=== PATIENT | male | born 1970 | race Caucasian/White ===

== ENCOUNTER 2017-11-30 15:41 | Inpatient (IN) ==
[2017-11-30] MEDS ORDERED: Ondansetron 4 MG/2 ML VIAL IVP ONE (15:51)
[2017-11-30] MEDS ORDERED: 0.9 % Sodium Chloride 1,000 ML IVC ONE (15:51)
[2017-11-30] MEDS ORDERED: *HR* FentaNYL (PF) 100 MCG/2 ML VIAL IVP ONE (15:51)
--- NOTE | 2017-11-30 15:59 | Emergency Department Note ---
Disposition Clinical Impression: Cellulitis of abdominal wall, Elevated troponin I level Disposition: Admitted As Inpatient Condition: Fair General Adult HPI - General Chief complaint: ED Skin/Abscess/Foreign Body Stated complaint: abscess on groin Time Seen by Provider: 11/30/17 15:45 Source: patient, EMS Limitations: no limitations Nursing Notes Reviewed: Yes Vital Signs Reviewed: Yes - History of Present Illness Pain Scale: 9 - Related Data Home Medications Medication Instructions Recorded Confirmed Insulin Glargine [Lantus] 28 unit SQ QPM 05/23/17 11/30/17 Metformin HCl [Fortamet] 1,000 mg PO DAILY 05/23/17 11/30/17 Sertraline [Zoloft] 100 mg PO BID 05/23/17 11/30/17 glipiZIDE [Glipizide] 10 mg PO BID 05/23/17 11/30/17 Acetaminophen/Aspirin/Caffeine 1 each PO Q6H PRN 11/30/17 11/30/17 [Excedrin EX] Budesonide/Formoterol 80/4.5 2 puff IH BID 11/30/17 11/30/17 [Symbicort 80/4.5] Docusate [Colace] 100 mg PO BID 11/30/17 11/30/17 Gabapentin [Neurontin] 300 mg PO TID 11/30/17 11/30/17 Menthol/Camphor [Icy Hot Advanced 1 appl TP AD 11/30/17 11/30/17 Relief Cream] Oxycodone HCl/Acetaminophen 1 each PO Q6H PRN 11/30/17 11/30/17 [Percocet 10-325 mg Tablet] Sennosides [Senna] 17.2 mg PO DAILY 11/30/17 11/30/17 Sildenafil Citrate [Viagra] 50 mg PO AD PRN 11/30/17 11/30/17 traZODone [TraZODone] 50 mg PO HS 11/30/17 11/30/17 Allergies Allergy/AdvReac Type Severity Reaction Status Date / Time No Known Allergies Allergy Verified 05/23/17 11:12 Past Medical History - Past Medical History Medical history: Reports: diabetes Psychiatric history: Reports: anxiety, depression - Social History Smoking Status: Current every day smoker Smokeless Tobacco Status: No Alcohol use: Reports: none Drug use: Reports: none Physical Exam - General Limitations: no limitations General appearance: alert, in no apparent distress Course Vital Signs Temperature 97.3 F L 11/30/17 15:44 Pulse Rate 103 11/30/17 15:44 Respiratory Rate 18 11/30/17 15:44 Blood Pressure 126/64 11/30/17 15:44 O2 Sat by Pulse Oximetry 96 11/30/17 15:44 Temperature 97.3 F L 11/30/17 15:44 Pulse Rate 101 11/30/17 19:32 Respiratory Rate 18 11/30/17 19:32 Blood Pressure 124/73 11/30/17 19:32 O2 Sat by Pulse Oximetry 94 11/30/17 19:32 Oxygen Delivery Oxygen Delivery Room Air Medical Decision Making - MDM Narrative Medical decision making narrative: This documentation is done with the assistance of Dragon dictation. Despite efforts made to ensure accuracy, there may be inaccuracies in municipal services manager or spelling and typographical errors. I examined this patient and my medical decision-making was reviewed with the Resident Physician. I agree with the documented findings, disposition and treatment plan as described except to the extent set forth below. Patient seen and evaluated on arrival with EMS from the [place]. He was seen today by myself and Dr. when I agree with her evaluation and management plan, supervised care the patient's stay. Patient presents with a large abscess to the left lower groin. He sits been on a couple days. He has had them before. His measures about 8 x 4 cm. He has any tenderness of the testicles or scrotum or the penis. He is diabetic. Were in a start him on IV antibiotics pain medications check labs and do a CT to rule out necrotizing fasciitis. He is in agreement with plan. He will need admission surgical consult. 1603 hrs.: Patient in EKG performed shows a sinus rhythm rate is 99 QRS is 94 QTC 397 no signs of ischemia no old EKG to compare this to. Patient has no chest pain. 1655 hrs.: Patient's blood sugars elevated. We will start him on insulin. He is a known diabetic. He is goes antibiotics running also. His troponin is elevated. He has no changes so she with ischemia does EKG nor is any chest pain. And he has no renal insufficiency. Abdomen/Pelvis CT 11/30/17 15:49 IMPRESSION: 1. Cellulitis involving the mons pubis, left greater than right. Question of early phlegmonous changes on the left with more focal fluid collection. No discrete abscess is seen. 2. Prominent inguinal and external iliac nodes, presumed reactive in nature. Close clinical follow-up recommended. Consider imaging follow-up in 6 months following treatment. 3. 7.5 mm noncalcified left lower lobe pulmonary nodule. Follow-up imaging recommendations below. 4. Moderate prostatomegaly. RECOMMENDATIONS: Fleischner Society guidelines for follow-up and management of incidentally detected pulmonary nodules: Single Solid Nodule: Nodule size equals 6-8 mm In a low-risk patient, CT at 6-12 months, then consider CT at 18-24 months. In a high-risk patient, CT at 6-12 months, then CT at 18-24 months. - Low risk patients include individuals with minimal or absent history of smoking and other known risk factors. - High risk patients include individuals with a history or smoking or known risk factors. Radiology 2017 http://pubs.rsna.org/doi/full/10.1148/[email or web address] D/ / Collin Sheets MD / Collin Sheets MD Interpreting Provider: Collin Sheest MD 1800 hrs.: Patient received his IV antibiotics she is tolerating those well. No discrete abscess to drain. We spoke to hospitalist agreeing to admit the patient to hospital. Patient's in agreement with this plan. - Lab Data Result diagrams: 11/30/17 16:02 11/30/17 16:02 Lab Results 11/30/17 11/30/17 11/30/17 Range/Units 16:02 16:02 16:02 WBC 17.9 H (4.3-11.1) K/mcL RBC 4.95 (4.19-5.50) M/mcL Hgb 15.3 (12.9-16.9) g/dL Hct 43.7 (37.5-50.1) % MCV 88.3 (83.0-100.0) fL MCH 30.9 (28.0-33.3) pg MCHC 35.0 (31.6-35.5) g/dL RDW 12.6 (11.5-14.5) % Plt Count 282 (140-400) K/mcL MPV 9.3 L (9.4-12.4) fL Immature Gran % 0.5 (0-4) % Seg Neutrophils % 76.9 % Lymphocytes % 15.2 % Monocytes % 5.7 % Eosinophils % 1.5 % Basophils % 0.2 % Neutrophils # 13.8 H (1.6-8.9) K/mcL Lymphocytes # 2.7 (0.6-4.6) K/mcL Monocytes # 1.0 (0.0-1.3) K/mcL Eosinophils # 0.3 (0.0-0.6) K/mcL Basophils # 0.0 (0.0-0.2) K/mcL Sodium 129 L (136-145) mEq/L Potassium 4.3 (3.5-5.1) mEq/L Chloride 96 L (98-107) mEq/L Carbon Dioxide 27 (23-29) mEq/L BUN 16 (6-20) mg/dL Creatinine 0.75 (0.70-1.30) mg/dL Est GFR ( Amer) > 60 (> 60) Est GFR (Non-Af Amer) > 60 (> 60) BUN/Creatinine Ratio 21 (6-26) Glucose 577 H* (70-105) mg/dL Calculated Osmolality 296 (280-300) Lactic Acid (0.5-2.2) mmol/L Calcium 9.4 (8.6-10.3) mg/dL Troponin I 0.05 H* (< 0.04) ng/mL Lipase 31 (11-82) Units/L Urine Color (Yellow) Urine Clarity (Clear) Urine pH (5.0-8.0) pH Units Ur Specific [place] (1.010-1.025) Urine Protein (Neg-Trace) mg/dL Urine Glucose (UA) (Normal) mg/dL Urine Ketones (Negative) mg/dL Urine Blood (Negative) Urine Nitrite (Negative) Urine Bilirubin (Negative) Urine Urobilinogen (Normal) mg/dL Ur Leukocyte Esterase (Negative) Urine Microscopic RBC (0-3) per hpf Urine Microscopic WBC (0-3) per hpf Ur Squamous Epith Cells (None-Few) per lpf Urine Bacteria (None-Few) per hpf Hyaline Casts (None-Few) per lpf Ur Culture Indicated? (NO) Specimen Rejected 11/30/17 11/30/17 11/30/17 Range/Units 16:02 17:10 18:43 WBC (4.3-11.1) K/mcL RBC (4.19-5.50) M/mcL Hgb (12.9-16.9) g/dL Hct (37.5-50.1) % MCV (83.0-100.0) fL MCH (28.0-33.3) pg MCHC (31.6-35.5) g/dL RDW (11.5-14.5) % Plt Count (140-400) K/mcL MPV (9.4-12.4) fL Immature Gran % (0-4) % Seg Neutrophils % % Lymphocytes % % Monocytes % % Eosinophils % % Basophils % % Neutrophils # (1.6-8.9) K/mcL Lymphocytes # (0.6-4.6) K/mcL Monocytes # (0.0-1.3) K/mcL Eosinophils # (0.0-0.6) K/mcL Basophils # (0.0-0.2) K/mcL Sodium (136-145) mEq/L Potassium (3.5-5.1) mEq/L Chloride (98-107) mEq/L Carbon Dioxide (23-29) mEq/L BUN (6-20) mg/dL Creatinine (0.70-1.30) mg/dL Est GFR ( Amer) (> 60) Est GFR (Non-Af Amer) (> 60) BUN/Creatinine Ratio (6-26) Glucose (70-105) mg/dL Calculated Osmolality (280-300) Lactic Acid 0.9 (0.5-2.2) mmol/L Calcium (8.6-10.3) mg/dL Troponin I (< 0.04) ng/mL Lipase (11-82) Units/L Urine Color Yellow (Yellow) Urine Clarity Clear (Clear) Urine pH 6.5 (5.0-8.0) pH Units Ur Specific [place] > 1.030 H (1.010-1.025) Urine Protein Trace (Neg-Trace) mg/dL Urine Glucose (UA) >=1000 H (Normal) mg/dL Urine Ketones Negative (Negative) mg/dL Urine Blood Negative (Negative) Urine Nitrite Negative (Negative) Urine Bilirubin Negative (Negative) Urine Urobilinogen Normal (Normal) mg/dL Ur Leukocyte Esterase Negative (Negative) Urine Microscopic RBC 3-5 H (0-3) per hpf Urine Microscopic WBC 5-15 H (0-3) per hpf Ur Squamous Epith Cells Moderate H (None-Few) per lpf Urine Bacteria None Seen (None-Few) per hpf Hyaline Casts None Seen (None-Few) per lpf Ur Culture Indicated? NO (NO) Specimen Rejected Accident
[2017-11-30 16:17] LABS: Basophils % 0.2 %; Eosinophils # 0.3 K/mcL (0.0-0.6); Eosinophils % 1.5 %; Hematocrit 43.7 % (37.5-50.1); Hemoglobin 15.3 g/dL (12.9-16.9); Immature Granulocytes % 0.5 % (0-4); Lymphocytes # 2.7 K/mcL (0.6-4.6); Lymphocytes % 15.2 %; Mean Corpuscular Hemoglobin 30.9 pg (28.0-33.3); Mean Corpuscular Volume 88.3 fL (83.0-100.0); Mean Platelet Volume 9.3 fL (9.4-12.4); Monocytes % 5.7 %; Neutrophils # 13.8 K/mcL (1.6-8.9); Platelet Count 282 K/mcL (140-400); Red Blood Count 4.95 M/mcL (4.19-5.50); Red Cell Distribution Width 12.6 % (11.5-14.5); Segmented Neutrophils % 76.9 %
[2017-11-30 16:42] LABS: BUN/Creatinine Ratio 21 (6-26); Blood Urea Nitrogen 16 mg/dL (6-20); Calcium 9.4 mg/dL (8.6-10.3); Carbon Dioxide 27 mEq/L (23-29); Chloride 96 mEq/L (98-107); Glucose 577 mg/dL (70-105); Osmolality,Calculated 296 (280-300); Potassium 4.3 mEq/L (3.5-5.1); Sodium 129 mEq/L (136-145); eGFR For African Americans > 60 (> 60); eGFR For Non-African Americans > 60 (> 60)
[2017-11-30 16:45] LABS: Troponin I 0.05 ng/mL (< 0.04)
[2017-11-30] MEDS ORDERED: Aspirin 81 MG TAB.CHEW PO STA (16:54)
[2017-11-30] MEDS ORDERED: Insulin Regular, Human 100 UNIT/ML SQ ONE (16:55)
[2017-11-30 17:25] LABS: Bilirubin,Urine Negative (Negative); Blood,Urine Negative (Negative); Clarity,Urine Clear (Clear); Color,Urine Yellow (Yellow); Glucose,Urine (UA) >=1000 mg/dL (Normal); Ketones,Urine Negative (Negative); Leukocyte Esterase,Urine Negative (Negative); Nitrite,Urine Negative (Negative); PH,Urine 6.5 pH Units (5.0-8.0); Protein,Urine Trace mg/dL (Neg-Trace); Specific Gravity,Urine > 1.030 (1.010-1.025); Urobilinogen,Urine Normal (Normal)
[2017-11-30 17:29] LABS: Bacteria,Urine None Seen per hpf (None-Few); Hyaline Casts,Urine None Seen per lpf (None-Few); Squamous Epithelial Cell,Urine Moderate per lpf (None-Few)
--- NOTE | 2017-11-30 17:56 | Emergency Department Note ---
Disposition Clinical Impression: Cellulitis of abdominal wall, Elevated troponin I level Disposition: Admitted As Inpatient Condition: Fair [facility]: [facility]Primary Care Provider[facility] - Forms: ED Satisfaction Letter Time of Disposition: 19:17 Abdominal Pain HPI - General Stated Complaint: abscess on groin Time Seen by Provider: 11/30/17 15:45 Source: patient, EMS Mode of arrival: EMS Limitations: no limitations Nursing Notes Reviewed: Yes Vital Signs Reviewed: Yes - History of Present Illness HPI Narrative: Patient is a 47-year-old male who presents to [facility] ED with a chief complaint of an abscess in the groin region. Patient was sent over by the [place] to have the abscess drained. Patient states it has been worsening over the last few days and causes a lot of pain. States he has had subjective fevers and chills. Admits to some nausea with episodes of vomiting. Denies any chest pain, difficulty breathing. Patient also has some epigastric pain. Pt Subjective Complaint: abdominal pain Onset (ago): day(s) Consistency: Worsening Location: suprapubic Pain Severity: severe Pain Scale: 9 Quality: aching Radiation: none Migration to: no migration Improves with: nothing Worsens with: nothing Associated symptoms: Reports: nausea, vomiting, fever, chills. Denies: dysuria Treatments prior to arrival: none - Related Data Home Medications Medication Instructions Recorded Confirmed Insulin Glargine [Lantus] 30 unit SQ QPM 05/23/17 05/23/17 Metformin HCl [Fortamet] 1,000 mg PO BID 05/23/17 05/23/17 Sertraline [Zoloft] 100 mg PO BID 05/23/17 05/23/17 glipiZIDE [Glipizide] 10 mg PO BID 05/23/17 05/23/17 Acetaminophen/Aspirin/Caffeine 1 each PO Q6H PRN 11/30/17 11/30/17 [Excedrin EX] Budesonide/Formoterol 80/4.5 2 puff IH BID 11/30/17 11/30/17 [Symbicort 80/4.5] Docusate [Colace] 100 mg PO BID 11/30/17 11/30/17 Gabapentin [Neurontin] 300 mg PO TID 11/30/17 11/30/17 Menthol/Camphor [Icy Hot Advanced 1 appl TP AD 11/30/17 11/30/17 Relief Cream] Oxycodone HCl/Acetaminophen 1 each PO Q6H PRN 11/30/17 11/30/17 [Percocet 10-325 mg Tablet] Sennosides [Senna] 17.2 mg PO DAILY 11/30/17 11/30/17 Sildenafil Citrate [Viagra] 50 mg PO AD PRN 11/30/17 11/30/17 traZODone [TraZODone] 50 mg PO HS 11/30/17 11/30/17 Allergies Allergy/AdvReac Type Severity Reaction Status Date / Time No Known Allergies Allergy Verified 05/23/17 11:12 All systems ED: reviewed and negative except as stated. Abdominal Pain PMH - Past Medical History Medical history: Reports: diabetes Male Surgical History: Reports: orthopedic, other, Tonsillectomy Psychiatric history: Reports: anxiety, depression - Social History Smoking status: Current every day smoker Alcohol use: Reports: none Drug use: Reports: none Physical Exam - General Limitations: no limitations General appearance: alert, in no apparent distress - Head Head exam: atraumatic, normocephalic, normal inspection - Eye Eye exam: Present: normal appearance, EOMI - ENT ENT exam: normal exam, normal oropharynx, mucous membranes moist - Neck Neck exam: Present: normal inspection, full ROM, trachea midline - Chest Chest inspection: Present: normal inspection, symmetric chest wall rise - Respiratory Respiratory exam: Present: normal lung sounds bilaterally - Cardiovascular Cardiovascular exam: Present: normal rhythm, tachycardia - Abdominal Exam Abdominal exam: Present: soft, tenderness (Over the region of the abscess on the lower abdomen), normal bowel sounds Abdominal tenderness: Present: suprapubic, diffuse, moderate - Extremities Exam Extremities exam: Present: normal inspection, full ROM. Absent: tenderness, pedal edema - Back Exam Back exam: Present: normal inspection, full ROM. Absent: tenderness - Neurological Exam Neurological exam: Present: alert, oriented X3 - Psychiatric Psychiatric exam: Present: normal affect, normal mood - Skin Skin exam: Present: warm, dry, intact, normal color Course Course Narrative: Patient seen and examined. Abscess measuring 8.5 x 4.5 cm. We will get lab work as well as CT abdomen and pelvis with IV contrast to evaluate. IV fluids ordered as well as Zofran for nausea. Vancomycin given for MRSA coverage. Since pain radiates up into his chest, we will check an EKG and troponin level. - Reevaluation(s) Reevaluation #1: Troponin mildly elevated at 0.05. CT scan shows cellulitis. Patient covered with vancomycin. We will admit to hospital service. Time: 19:17 Vital Signs Temperature 97.3 F L 11/30/17 15:44 Pulse Rate 103 11/30/17 15:44 Respiratory Rate 18 11/30/17 15:44 Blood Pressure 126/64 11/30/17 15:44 O2 Sat by Pulse Oximetry 96 11/30/17 15:44 Temperature 97.3 F L 11/30/17 15:44 Pulse Rate 103 11/30/17 15:44 Respiratory Rate 18 11/30/17 15:44 Blood Pressure 126/64 11/30/17 15:44 O2 Sat by Pulse Oximetry 96 11/30/17 15:44 Oxygen Delivery Oxygen Delivery Room Air Abdominal Pain - Medical Records Medical records reviewed: Yes I reviewed the patient's medical records. - Lab Data Lab results reviewed: Yes I reviewed the patient's lab results. Result diagrams: 11/30/17 16:02 11/30/17 16:02 Lab Results 11/30/17 11/30/17 11/30/17 Range/Units 16:02 16:02 16:02 WBC 17.9 H (4.3-11.1) K/mcL RBC 4.95 (4.19-5.50) M/mcL Hgb 15.3 (12.9-16.9) g/dL Hct 43.7 (37.5-50.1) % MCV 88.3 (83.0-100.0) fL MCH 30.9 (28.0-33.3) pg MCHC 35.0 (31.6-35.5) g/dL RDW 12.6 (11.5-14.5) % Plt Count 282 (140-400) K/mcL MPV 9.3 L (9.4-12.4) fL Immature Gran % 0.5 (0-4) % Seg Neutrophils % 76.9 % Lymphocytes % 15.2 % Monocytes % 5.7 % Eosinophils % 1.5 % Basophils % 0.2 % Neutrophils # 13.8 H (1.6-8.9) K/mcL Lymphocytes # 2.7 (0.6-4.6) K/mcL Monocytes # 1.0 (0.0-1.3) K/mcL Eosinophils # 0.3 (0.0-0.6) K/mcL Basophils # 0.0 (0.0-0.2) K/mcL Sodium 129 L (136-145) mEq/L Potassium 4.3 (3.5-5.1) mEq/L Chloride 96 L (98-107) mEq/L Carbon Dioxide 27 (23-29) mEq/L BUN 16 (6-20) mg/dL Creatinine 0.75 (0.70-1.30) mg/dL Est GFR ( Amer) > 60 (> 60) Est GFR (Non-Af Amer) > 60 (> 60) BUN/Creatinine Ratio 21 (6-26) Glucose 577 H* (70-105) mg/dL Calculated Osmolality 296 (280-300) Calcium 9.4 (8.6-10.3) mg/dL Troponin I 0.05 H* (< 0.04) ng/mL Lipase 31 (11-82) Units/L Urine Color (Yellow) Urine Clarity (Clear) Urine pH (5.0-8.0) pH Units Ur Specific [place] (1.010-1.025) Urine Protein (Neg-Trace) mg/dL Urine Glucose (UA) (Normal) mg/dL Urine Ketones (Negative) mg/dL Urine Blood (Negative) Urine Nitrite (Negative) Urine Bilirubin (Negative) Urine Urobilinogen (Normal) mg/dL Ur Leukocyte Esterase (Negative) Urine Microscopic RBC (0-3) per hpf Urine Microscopic WBC (0-3) per hpf Ur Squamous Epith Cells (None-Few) per lpf Urine Bacteria (None-Few) per hpf Hyaline Casts (None-Few) per lpf Ur Culture Indicated? (NO) 11/30/17 Range/Units 17:10 WBC (4.3-11.1) K/mcL RBC (4.19-5.50) M/mcL Hgb (12.9-16.9) g/dL Hct (37.5-50.1) % MCV (83.0-100.0) fL MCH (28.0-33.3) pg MCHC (31.6-35.5) g/dL RDW (11.5-14.5) % Plt Count (140-400) K/mcL MPV (9.4-12.4) fL Immature Gran % (0-4) % Seg Neutrophils % % Lymphocytes % % Monocytes % % Eosinophils % % Basophils % % Neutrophils # (1.6-8.9) K/mcL Lymphocytes # (0.6-4.6) K/mcL Monocytes # (0.0-1.3) K/mcL Eosinophils # (0.0-0.6) K/mcL Basophils # (0.0-0.2) K/mcL Sodium (136-145) mEq/L Potassium (3.5-5.1) mEq/L Chloride (98-107) mEq/L Carbon Dioxide (23-29) mEq/L BUN (6-20) mg/dL Creatinine (0.70-1.30) mg/dL Est GFR ( Amer) (> 60) Est GFR (Non-Af Amer) (> 60) BUN/Creatinine Ratio (6-26) Glucose (70-105) mg/dL Calculated Osmolality (280-300) Calcium (8.6-10.3) mg/dL Troponin I (< 0.04) ng/mL Lipase (11-82) Units/L Urine Color Yellow (Yellow) Urine Clarity Clear (Clear) Urine pH 6.5 (5.0-8.0) pH Units Ur Specific [place] > 1.030 H (1.010-1.025) Urine Protein Trace (Neg-Trace) mg/dL Urine Glucose (UA) >=1000 H (Normal) mg/dL Urine Ketones Negative (Negative) mg/dL Urine Blood Negative (Negative) Urine Nitrite Negative (Negative) Urine Bilirubin Negative (Negative) Urine Urobilinogen Normal (Normal) mg/dL Ur Leukocyte Esterase Negative (Negative) Urine Microscopic RBC 3-5 H (0-3) per hpf Urine Microscopic WBC 5-15 H (0-3) per hpf Ur Squamous Epith Cells Moderate H (None-Few) per lpf Urine Bacteria None Seen (None-Few) per hpf Hyaline Casts None Seen (None-Few) per lpf Ur Culture Indicated? NO (NO) - Radiology Data Radiology results reviewed: Yes I reviewed the patient's radiology results. Abdomen/Pelvis CT 11/30/17 15:49 IMPRESSION: 1. Cellulitis involving the mons pubis, left greater than right. Question of early phlegmonous changes on the left with more focal fluid collection. No discrete abscess is seen. 2. Prominent inguinal and external iliac nodes, presumed reactive in nature. Close clinical follow-up recommended. Consider imaging follow-up in 6 months following treatment. 3. 7.5 mm noncalcified left lower lobe pulmonary nodule. Follow-up imaging recommendations below. 4. Moderate prostatomegaly. RECOMMENDATIONS: Fleischner Society guidelines for follow-up and management of incidentally detected pulmonary nodules: Single Solid Nodule: Nodule size equals 6-8 mm In a low-risk patient, CT at 6-12 months, then consider CT at 18-24 months. In a high-risk patient, CT at 6-12 months, then CT at 18-24 months. - Low risk patients include individuals with minimal or absent history of smoking and other known risk factors. - High risk patients include individuals with a history or smoking or known risk factors. Radiology 2017 http://pubs.rsna.org/doi/full/10.1148/radiol.[email or web address] D/ / Collin Sheets MD / Collin Sheets MD Interpreting Provider: Collin Sheets MD
--- NOTE | 2017-11-30 18:33 | Event Note ---
Date of Encounter: 11/30/17 Time of Encounter: 18:30 1. Sepsis secondary to pubic cellulitis/possible phlegmon/early abscess *Cefepime and continue vancomycin IV, blood cultures, IV fluids Surgery consult for possible draining Check lactic acid 2. Hyperglycemia/history of diabetes type 2 insulin-dependent Use 30 units of Levemir at night, 10 units of Humalog 3 times a day plus sliding scale Consider insulin drip not able to control glucose 3. Tobacco abuse, smoking cessation counseling, nicotine patch 4. Pseudohyponatremia due to hyperglycemia 5. Elevated troponin, possibly secondary to demand ischemia, follow troponins, continue aspirin Omeprazole for GI prophylaxis and subcutaneous heparin for DVT prophylaxis. The patient will be admitted as inpatient, expected to stay more than 2 midnights. Full code. Time spent on this admission 40 minutes H&P will be completed by Keith Mcgarry NP
[2017-11-30] MEDS ORDERED: Ondansetron 4 MG/2 ML VIAL IVP PRN (18:35)
[2017-11-30] MEDS ORDERED: Dextrose Gel 15 GM/37.5 ML TUBE PO PRN ×2 (18:39)
[2017-11-30] MEDS ORDERED: *HR* Dextrose 50 % in Water (Syg) 50 ML SYRINGE IVP PRN (18:39)
[2017-11-30] MEDS ORDERED: D5% in Water 1,000 ML IVC PRN (18:39)
[2017-11-30] MEDS ORDERED: Insulin Human Regular 10 UNIT in 0.9 % Sodium Chloride 10 ML IV ONE (18:40)
[2017-11-30] MEDS ORDERED: Naloxone 0.4 MG/ML INJ IVP PRN (18:43)
--- NOTE | 2017-11-30 19:22 | Internal Med History&Physical ---
<Keith Mcgarry - Last Filed: 11/30/17 19:33> Date of Encounter: 11/30/17 Time of Encounter: 19:19 Assessment and Plan (1) Cellulitis of pubic region Status: Acute Possible phlegmon/early abscess. Swelling began 3-days ago -ABX cefepime and vancomycin per PT dosing -Consult surgery for potential I&D -Check lactic acid (2) Sepsis Status: Acute Secondary to groin cellulitis. Continue IV ABX therapy Qualifiers: Sepsis type: sepsis due to unspecified organism Qualified Code(s): A41.9 - Sepsis, unspecified organism (3) Nausea and vomiting Status: Acute He is reporting intermittent nausea and vomiting which began yesterday. Nausea has improved with antiemetics -Continue antiemetics -IV fluid 0.9% normal saline Qualifiers: Vomiting type: unspecified Vomiting Intractability: unspecified Qualified Code(s): R11.2 - Nausea with vomiting, unspecified (4) DM (diabetes mellitus) Status: Acute -Resume basal insulin -Give 10 units insulin IVP x1 dose now; recheck BG in 1 hour after dose -10 units insulin TID with meals -High sliding scale coverage -hypoglycemic protocol Qualifiers: Diabetes mellitus type: type 2 Diabetes mellitus fpc insulin use: with buttermaker continuous churn use Diabetes mellitus complication status: with unspecified complications Qualified Code(s): E11.8 - Type 2 diabetes mellitus with unspecified complications; Z79.4 - skilled nursing (current) use of insulin; Z79.4 - exterminator (current) use of insulin; Z79.4 - exterminator (current) use of insulin; Z79.4 - exterminator (current) use of insulin (5) Hyperglycemia Status: Acute See plan above (6) Elevated troponin I level Status: Acute Elevated troponin, etiology unclear. Denies any chest pain, EKG unremarkable. Continue to trend troponins. Continuous tele (7) Hyponatremia Status: Acute Pseudohyponatremia most likely secondary to hyperglycemia (8) DVT prophylaxis Status: Acute Heparin 5000 units SC BID Internal Medicine - H&P: HPI Chief complaint: groin cellulitis Admitted From: Home Plans for Post Hospital Care: Home History of present illness: Mr. Muñiz is a 47 year old male with a PMH of DM who presents to [facility] today with a CC of an abscess in the groin. He reports that approximately 3-days ago he began developing swelling, pain and what he thought was an infected hair in his groin. He states that the swelling has increased as well as the pain. He does admit to a small amount of drainage starting today. He also reports subjective fevers, nausea, vomiting and generalized aches pain and abdominal pain. He was found to have cellulitis involving the mons pubus, left greater than right. Question of early phlegmonous changes on the left with more focal fluid collection. Past Med Surg Social Fam HX - Past Medical History Medical history: diabetes Psychiatric history: anxiety, depression - Social History Smoking Status: Current every day smoker Smokeless Tobacco Status: No Alcohol use: none Drug use: none - Additional Family History Additional family history: noncontributory Internal Medicine - H&P: Meds Metformin HCl [Fortamet] 1,000 mg PO DAILY 05/23/17 [History] Sertraline [Zoloft] 100 mg PO BID 05/23/17 [History] glipiZIDE [Glipizide] 10 mg PO BID 05/23/17 [History] Acetaminophen/Aspirin/Caffeine [Excedrin EX] 1 each PO Q6H PRN 11/30/17 [History ] Budesonide/Formoterol 80/4.5 [Symbicort 80/4.5] 2 puff IH BID 11/30/17 [History ] Docusate [Colace] 100 mg PO BID 11/30/17 [History] Gabapentin [Neurontin] 300 mg PO TID 11/30/17 [History] Menthol/Camphor [Icy Hot Advanced Relief Cream] 1 appl TP AD 11/30/17 [History] Sennosides [Senna] 17.2 mg PO DAILY 11/30/17 [History] Sildenafil Citrate [Viagra] 50 mg PO AD PRN 11/30/17 [History] traZODone [TraZODone] 50 mg PO HS 11/30/17 [History] Adhesive Tape [Paper Tape] 1 each TP DAILY #1 tape 12/03/17 [Rx] Polyhexam Biguan/Gauze Bandage [Curity Amd 4"X4" Non-Woven] 4 each TP QDPC #200 sponge 12/03/17 [Rx] Polyhexam Biguan/Gauze Bandage [Curity Amd Packing Strips] 1 each TP QDPC 14 Days #1 bottle 12/03/17 [Rx] Swab [Cotton Swabs] 1 each MC QDPC 30 Days #30 swab 12/03/17 [Rx] Clotrimazole 1% CRM [Lotrimin 1%] 1 appl TP BID #2 tube 12/04/17 [Rx] Fluconazole [Diflucan] 200 mg PO DAILY #7 tablet 12/04/17 [Rx] Insulin Glargine [Lantus] 35 unit SQ QPM #0 12/04/17 [Rx] Insulin LISPRO [HumaLOG] 10 units SQ TIDWM #3 vial 12/04/17 [Rx] Nicotine Patch [Nicoderm] 21 mg TD DAILY #30 patch.td24 12/04/17 [Rx] Oxycodone HCl/Acetaminophen [Percocet 10-325 mg Tablet] 1 each PO Q6H PRN 5 Days #15 tablet 12/04/17 [Rx] Polyethylene Glycol 3350 [MiraLAX] 17 gm PO DAILY PRN #30 powd.pack 12/04/17 [Rx ] Sulfamethoxazole/Trimeth DS [Bactrim DS] 1 each PO BID #14 tablet 12/04/17 [Rx] Triamcinolone Acet 0.1% CRM [Kenalog] 1 appl TP BID #2 tube 12/04/17 [Rx] 3 Allergy/AdvReac Type Severity Reaction Status Date / Time No Known Allergies Allergy Verified 05/23/17 11:12 All Systems PM: A 10-system review of systems was performed and is negative for pertinent findings except as documented above in the HPI. - Constitutional Constitutional: as per HPI - Cardiovascular Cardiovascular ROS IM: no chest pain, no diaphoresis, no dyspnea, no lightheadedness, no palpitations, no syncope - Respiratory Respiratory: no cough, no dyspnea, no wheezing, no excessive phlegm production - Gastrointestinal Gastrointestinal: no abdominal pain, no diarrhea, no hematemesis, no hematochezia, no melena, no nausea, no vomiting - Genitourinary Genitourinary ROS male: no difficulty urinating, no dysuria, no flank pain - Musculoskeletal Musculoskeletal ROS IM: no numbness, no tingling - Integumentary Integumentary IM: as per HPI - Neurological Neurological ROS: no confusion, no convulsions, no focal weakness, no numbness, no tingling, no tremor(s) - Constitutional Vitals: Temp Pulse Resp BP Pulse Ox 97.3 F L 103 18 126/64 96 11/30/17 15:44 11/30/17 15:44 11/30/17 15:44 11/30/17 15:44 11/30/17 15:44 General appearance: Present: cooperative, A&O X 3, no acute distress, answers questions appropriately - Head Head exam: Present: atraumatic, normocephalic - Eye Pupils: Present: PERRL - Respiratory Respiratory exam: Present: CTAB. Absent: accessory muscle use, rales, rhonchi, wheezes - Cardiovascular Cardiovascular exam: Present: RRR, +S1, +S2. Absent: diastolic murmur, gallop, rubs, systolic murmur - GI/Abdominal GI/Abdominal exam: Present: normal bowel sounds, soft, no peritoneal signs. Absent: distended, tenderness - Extremities Exam Extremities exam: Present: warm, radial pulses palpable and symmetrical. Absent : calf tenderness, cyanotic, pedal edema - Neurological Exam Neurological exam: Present: oriented X3. Absent: facial droop, speech deficit - Expanded Skin Exam Type of lesion: Present: abscess Description of rash: Present: erythematous, indurated, size (8.5x4.5), swelling , tenderness Internal Med - H&P Results - Labs CBC & Chem 7: 11/30/17 16:02 11/30/17 16:02 Labs: Short CBC 11/30/17 Range/Units 16:02 WBC 17.9 H (4.3-11.1) K/mcL Hgb 15.3 (12.9-16.9) g/dL Hct 43.7 (37.5-50.1) % Plt Count 282 (140-400) K/mcL Neutrophils # 13.8 H (1.6-8.9) K/mcL BMP 11/30/17 16:02 Sodium 129 L Potassium 4.3 Chloride 96 L Carbon Dioxide 27 BUN 16 Creatinine 0.75 Glucose 577 H* Calcium 9.4 Cardiac Enzymes 11/30/17 Range/Units 16:02 Troponin I 0.05 H* (< 0.04) ng/mL Urine 11/30/17 Range/Units 17:10 Urine Color Yellow (Yellow) Urine Clarity Clear (Clear) Urine pH 6.5 (5.0-8.0) pH Units Ur Specific [place] > 1.030 H (1.010-1.025) Urine Protein Trace (Neg-Trace) mg/dL Urine Glucose (UA) >=1000 H (Normal) mg/dL - Impressions ITS Impressions Abdomen/Pelvis CT 11/30/17 15:49 IMPRESSION: 1. Cellulitis involving the mons pubis, left greater than right. Question of early phlegmonous changes on the left with more focal fluid collection. No discrete abscess is seen. 2. Prominent inguinal and external iliac nodes, presumed reactive in nature. Close clinical follow-up recommended. Consider imaging follow-up in 6 months following treatment. 3. 7.5 mm noncalcified left lower lobe pulmonary nodule. Follow-up imaging recommendations below. 4. Moderate prostatomegaly. RECOMMENDATIONS: Fleischner Society guidelines for follow-up and management of incidentally detected pulmonary nodules: Single Solid Nodule: Nodule size equals 6-8 mm In a low-risk patient, CT at 6-12 months, then consider CT at 18-24 months. In a high-risk patient, CT at 6-12 months, then CT at 18-24 months. - Low risk patients include individuals with minimal or absent history of smoking and other known risk factors. - High risk patients include individuals with a history or smoking or known risk factors. Radiology 2017 http://pubs.rsna.org/doi/full/10.1148/radiol.[email or web address] D/ / Collin Sheets MD / Collin Sheets MD Interpreting Provider: Collin Sheets MD <Rory Harmon H - Last Filed: 12/05/17 07:53> Date of Encounter: 12/05/17 Internal Medicine - H&P: HPI History of present illness: Mr. Muñiz is a 47 year old male All Systems PM: A 10-system review of systems was performed and is negative for pertinent findings except as documented above in the HPI. - Constitutional Vitals: Temp Pulse Resp BP Pulse Ox 97.9 F 79 16 144/81 95 12/04/17 14:58 12/04/17 14:58 12/04/17 14:58 12/04/17 14:58 12/04/17 14:58 Internal Med - H&P Results - Labs CBC & Chem 7: 12/04/17 04:30 12/04/17 04:30 - Attending Attestation 1. Sepsis secondary to pubic cellulitis/possible phlegmon/early abscess *Cefepime and continue vancomycin IV, blood cultures, IV fluids Surgery consult for possible draining Check lactic acid 2. Hyperglycemia/history of diabetes type 2 insulin-dependent Use 30 units of Levemir at night, 10 units of Humalog 3 times a day plus sliding scale Consider insulin drip not able to control glucose 3. Tobacco abuse, smoking cessation counseling, nicotine patch 4. Pseudohyponatremia due to hyperglycemia 5. Elevated troponin, possibly secondary to demand ischemia, follow troponins, continue aspirin Omeprazole for GI prophylaxis and subcutaneous heparin for DVT prophylaxis. The patient will be admitted as inpatient, expected to stay more than 2 midnights. Full code. Time spent on this admission 40 minutes I have personally performed a face to face evaluation on this patient. I have reviewed and agree with the care plan. History and Exam by me shows:
[2017-11-30] MEDS: traZODone 50 MG TABLET PO SCH (21:00)
[2017-11-30] MEDS: Gabapentin 300 MG CAPSULE PO SCH (21:00)
[2017-11-30] MEDS: Insulin DETEMIR 100 UNIT/ML X5UNITS SQ SCH (21:00)
[2017-11-30] MEDS: Insulin LISPRO 300 UNITS/3 ML VIAL SQ SCH (21:01)
[2017-11-30] MEDS: Budesonide/Formoterol 80/4.5 MDI IH SCH (22:24)
[2017-11-30] MEDS ORDERED: Acetaminophen 325 MG TABLET PO PRN (23:28)
[2017-11-30] MEDS: 0.9 % Sodium Chloride 1,000 ML IVC SCH (23:39)
[2017-12-01] MEDS ORDERED: Cefepime HCl 1,000 MG in Water for inj. (sterile) 20 ML 10 ML IVP SCH
[2017-12-01 03:42] LABS: Basophils % 0.2 %; Eosinophils # 0.6 K/mcL (0.0-0.6); Eosinophils % 3.5 %; Hematocrit 41.2 % (37.5-50.1); Hemoglobin 14.1 g/dL (12.9-16.9); Immature Granulocytes % 0.6 % (0-4); Lymphocytes # 3.3 K/mcL (0.6-4.6); Lymphocytes % 20.2 %; Mean Corpuscular HGB Conc 34.2 g/dL (31.6-35.5); Mean Corpuscular Hemoglobin 30.5 pg (28.0-33.3); Monocytes # 1.1 K/mcL (0.0-1.3); Platelet Count 273 K/mcL (140-400); Red Blood Count 4.63 M/mcL (4.19-5.50); Red Cell Distribution Width 12.4 % (11.5-14.5); Segmented Neutrophils % 68.5 %
[2017-12-01 04:00] LABS: BUN/Creatinine Ratio 29 (6-26); Blood Urea Nitrogen 17 mg/dL (6-20); Calcium 8.8 mg/dL (8.6-10.3); Carbon Dioxide 28 mEq/L (23-29); Chloride 107 mEq/L (98-107); Glucose 123 mg/dL (70-105); Osmolality,Calculated 293 (280-300); Potassium 3.8 mEq/L (3.5-5.1); Sodium 140 mEq/L (136-145); eGFR For African Americans > 60 (> 60); eGFR For Non-African Americans > 60 (> 60)
[2017-12-01] MEDS: *HR* Heparin 5,000 UNIT/ML VIAL SQ SCH ×2 (05:06→17:38)
[2017-12-01] MEDS: 0.9 % Sodium Chloride 1,000 ML IVC SCH ×2 (06:45→09:19)
[2017-12-01] MEDS: Budesonide/Formoterol 80/4.5 MDI IH SCH ×2 (07:38→21:38)
[2017-12-01] MEDS ORDERED: Vancomycin (wt based) 1,000 MG VIAL IVPB ONE (09:00)
[2017-12-01] MEDS: Insulin LISPRO 300 UNITS/3 ML VIAL SQ SCH ×7 (09:14→21:07)
[2017-12-01] MEDS: Gabapentin 300 MG CAPSULE PO SCH ×3 (09:16→20:10)
[2017-12-01] MEDS: Sennosides 8.6 MG TABLET PO SCH (09:16)
[2017-12-01] MEDS: *HR* OxyCODONE/APAP 10/325 TABLET PO PRN ×2 (09:16→16:38)
[2017-12-01] MEDS: Piperacillin/Tazobactam 3.375 GM in 0.9 % Sodium Chloride Mini Bag 100 ML IVPB SCH ×3 (09:17→23:26)
--- NOTE | 2017-12-01 13:46 | Internal Med Progress Note ---
Date of Encounter: 12/01/17 Time of Encounter: 08:45 - Assessment and plan (1) Sepsis Current Visit: Yes Status: Acute Assessment and plan: presented with tahcycardia, leukocytosis, with cellulitis and abscess of pubic area; continue antibiotics and monitor vital signs closely; serum lactate normal ; Qualifiers: Sepsis type: sepsis due to unspecified organism Qualified Code(s): A41.9 - Sepsis, unspecified organism (2) Cellulitis of pubic region Current Visit: Yes Status: Acute Assessment and plan: CT pelvis shows cellulitis and possible phlegmon of left pubis; continue IV Vancomycin, start IV Zosyn and stop Cefepime; pain control with PRN IV Fentanyl and PO Percocet; Surgery consulted for possible I&D after conversion to abscess , will f/up recommendations; (3) Anxiety and depression Current Visit: Yes Status: Chronic Assessment and plan: continue home meds; (4) DM (diabetes mellitus) Current Visit: Yes Status: Chronic Assessment and plan: blood sugars uncontrolled at admission; now improving; continue basal bolus insulin regimen and [place] blood glucose monitoring; diabetic diet; check HbA1C; Qualifiers: Diabetes mellitus type: type 2 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: with equipment operator intermodal yard use Diabetes mellitus complication status: with unspecified complications Qualified Code(s): E11.8 - Type 2 diabetes mellitus with unspecified complications; Z79.4 - penitentiary (current) use of insulin; Z79.4 - penitentiary (current) use of insulin; Z79.4 - penitentiary (current) use of insulin; Z79.4 - director long term care (current) use of insulin (5) Elevated troponin I level Current Visit: Yes Status: Acute Assessment and plan: mild leak likely due to demand ischemia and sepsis; continue to trend and Telemetry monitoring; - Subjective Interval history: Reports left pubic pain and swelling; no fever/chills, abdominal pain, chest pain or dyspnea; no nausea, vomiting; reports his blood sugars have been uncontrolled the last few days; - Constitutional Vitals: Temp Pulse Resp BP Pulse Ox 98.0 F 91 16 101/65 91 12/01/17 11:28 12/01/17 11:28 12/01/17 11:28 12/01/17 11:28 12/01/17 11:28 General appearance: Present: cooperative, A&O X 3, no acute distress, answers questions appropriately - Respiratory Respiratory exam: Present: CTAB. Absent: accessory muscle use, rales, rhonchi, wheezes - Cardiovascular Cardiovascular exam: Present: RRR, +S1, +S2. Absent: diastolic murmur, gallop, rubs, systolic murmur - GI/Abdominal GI/Abdominal exam: Present: normal bowel sounds, soft, no peritoneal signs. Absent: distended, tenderness Additional comments: left mons pubic area- erythematous firm swelling, tender, currently dry with small scab over the swelling; surrounding cellulitis+ - Extremities Exam Extremities exam: Present: full ROM, warm, radial pulses palpable and symmetrical. Absent: calf tenderness, cyanotic, pedal edema - Neurological Exam Neurological exam: Present: CN II-XII intact, oriented X3, no focal deficits. Absent: pronater drift, facial droop, speech deficit Internal Medicine: Result - Labs CBC & Chem 7: 12/01/17 03:21 12/01/17 03:21 Labs: Short CBC 12/01/17 Range/Units 03:21 WBC 16.1 H (4.3-11.1) K/mcL Hgb 14.1 (12.9-16.9) g/dL Hct 41.2 (37.5-50.1) % Plt Count 273 (140-400) K/mcL Neutrophils # 11.0 H (1.6-8.9) K/mcL BMP 12/01/17 03:21 Sodium 140 D Potassium 3.8 Chloride 107 Carbon Dioxide 28 BUN 17 Creatinine 0.59 L Glucose 123 H Calcium 8.8 Consult Discharge Plan - Plan [facility]errals: [facility] [Primary Care Provider[facility] -
[2017-12-01] MEDS: Fluconazole 200 MG/100 ML 200 MG/100 ML BAG IVPB SCH (14:07)
[2017-12-01] MEDS: *HR* FentaNYL (PF) 100 MCG/2 ML VIAL IVP PRN ×2 (14:10→20:16)
[2017-12-01] MEDS: Nicotine 21 MG PATCH.TD24 TD SCH (16:04)
--- NOTE | 2017-12-01 16:14 | General Surgery Consult Note ---
<Sridevi Shahid Yeni - Last Filed: 12/01/17 16:33> Date of Encounter: 12/01/17 Time of Encounter: 16:06 Assessment and Plan (1) Phlegmon Current Visit: Yes Status: Acute 47-year-old male with CT scan suggestive of phlegmon in the left pubis. -Continue pain control -Antibiotics with Zosyn and vancomycin -NPO at midnight -IVF -Likely to OR tomorrow for drainage and packing. (2) Cellulitis of pubic region Current Visit: Yes Status: Acute See managment above for phlegmon. (3) Sepsis Current Visit: Yes Status: Acute Patient presented with tachycardia, leukocytosis, and source of infection in the left groin area. -Tachycardia resolved, WBC trending down. -Continue to monitor. Qualifiers: Sepsis type: sepsis due to unspecified organism Qualified Code(s): A41.9 - Sepsis, unspecified organism (4) Phimosis Current Visit: Yes Status: Acute Patient with uncircumcised penis. -Unable to retract foreskin secondary to irritation and white curdy discharge. -IV fluconazole daily. -Consult to urology. (5) Pulmonary nodule Current Visit: Yes Status: Acute 7.5 mm noncalcified left lower lobe pulmonary nodule. -Recommended CT imaging follow-up in 6-12 months, then again at 18-24 months. (6) Elevated troponin I level Current Visit: Yes Status: Acute Flat and adynamic. -Management per primary team. (7) DM (diabetes mellitus) Current Visit: Yes Status: Chronic Management per primary team. 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 (9) DVT prophylaxis Current Visit: Yes Status: Acute Heparin subcutaneous twice a day. History of Present Illness Consult date: 12/01/17 Reason for consult: other (suprapubic, left groin phlegmon) Requesting physician: Anne Silva History of present illness: Mr. Muñiz is a 47-year-old male with past medical history of diabetes mellitus, substance abuse, and alcoholism who presented to [facility] on 11/30/2017 with chief complaint of left-sided groin swelling, warmth, and tenderness. Patient states his symptoms began 3 days prior after noticing an ingrown hair in the area. He states the area continued to swell, become warm, and become more painful. He stated that the area began to drain foul-smelling pus 1 day prior to coming to the emergency department. However, the drainage stopped and the swelling continued. Patient reports subjective fevers, nausea, vomiting, and abdominal pain. Patient was admitted to the hospitalist after CT scan demonstrated cellulitis involving the mons pubis, left greater than the right. CT also demonstrating early phlegmonous changes on the left with focal fluid collection, however, no discrete abscess. Surrounding lymphadenopathy noted. Patient was started on Zosyn and vancomycin. Patient also complaining of inability to retract his foreskin, white curdy discharge under his foreskin, and penile irritation. He is denying chest pain, shortness of breath, palpitations, diaphoresis, dizziness, lightheadedness, chills, or night sweats. Past Med Surg Social Fam HX - Past Medical History Attestation: Yes The following information was validated with the patient. Source: patient Medical history: COPD, diabetes, other (Obstructive sleep apnea) Psychiatric history: anxiety, depression, other (History of substance abuse. Sober from meth, cocaine, and weed for 6 years. Last drink of alcohol 1 year ago.) - Past Surgical History Surgical History: knee replacement, other (shoulder surgery) - Social History Smoking Status: Current every day smoker Smokeless Tobacco Status: No Alcohol use: none Drug use: none Medications and Allergies Insulin Glargine [Lantus] 28 unit SQ QPM 05/23/17 [History] Metformin HCl [Fortamet] 1,000 mg PO DAILY 05/23/17 [History] Sertraline [Zoloft] 100 mg PO BID 05/23/17 [History] glipiZIDE [Glipizide] 10 mg PO BID 05/23/17 [History] Acetaminophen/Aspirin/Caffeine [Excedrin EX] 1 each PO Q6H PRN 11/30/17 [History ] Budesonide/Formoterol 80/4.5 [Symbicort 80/4.5] 2 puff IH BID 11/30/17 [History ] Docusate [Colace] 100 mg PO BID 11/30/17 [History] Gabapentin [Neurontin] 300 mg PO TID 11/30/17 [History] Menthol/Camphor [Icy Hot Advanced Relief Cream] 1 appl TP AD 11/30/17 [History] Oxycodone HCl/Acetaminophen [Percocet 10-325 mg Tablet] 1 each PO Q6H PRN [History] Sennosides [Senna] 17.2 mg PO DAILY 11/30/17 [History] Sildenafil Citrate [Viagra] 50 mg PO AD PRN 11/30/17 [History] traZODone [TraZODone] 50 mg PO HS 11/30/17 [History] 3 Allergy/AdvReac Type Severity Reaction Status Date / Time No Known Allergies Allergy Verified 05/23/17 11:12 Review of Systems All systems PM: The remainder of the systems were reviewed and are negative - Constitutional fever(s), stops breathing during sleep, no chills, no daytime sleepiness, no fatigue, no lethargy, no malaise, no night sweats - Cardiovascular no chest pain, no chest pain at rest, no chest pain with activity, no diaphoresis, no dyspnea, no dyspnea on exertion, no lightheadedness, no orthopnea, no rapid heart rate - Respiratory no cough, no dyspnea - Gastrointestinal change in bowel habits, no abdominal pain, no constipation, no diarrhea, no hematemesis, no hematochezia, no melena - Genitourinary other (penile tenderness, irritation), no change in urinary stream, no difficulty urinating - Musculoskeletal no abnormal gait - Integumentary no non-healing lesions - Neurological no numbness, no weakness - Psychiatric other General Surgery Exam Initial Vital Signs Temp Pulse Resp BP Pulse Ox 97.3 F L 103 18 126/64 96 11/30/17 15:44 11/30/17 15:44 11/30/17 15:44 11/30/17 15:44 11/30/17 15:44 - General physical appearance well developed, well nourished, no distress - Eyes normal ocular movement - ENT atraumatic, CN 2-12 grossly intact - Respiratory normal expansion, normal respiratory effort, clear to auscultation - Cardiovascular Cardiovascular exam: Present: RRR, no murmurs/rubs/gallops - Abdomen Abdomen general surgery: Present: bowel sounds present, soft, non tender. Absent: guarding, rebound, rigid, surgical scars Abdominal Tenderness: Present: suprapubic Hernia: Present: none - Integumentary Integumentary general surgery: Present: warm and dry, other (An approximately 8/ 2 wide area of erythematous, edematous, and indurated swelling with associated warmth and tenderness located in the suprapubic to left groin region. This is about 4-1/2 cm in width. Lymphadenopathy palpated in the groin region.) - Musculoskeletal Present: normal gait, normal posture - Psychiatric Psychiatric general surgery: Present: A&Ox3, speech is normal, memory intact Exam Initial Vital Signs Temp Pulse Resp BP Pulse Ox 97.3 F L 103 18 126/64 96 11/30/17 15:44 11/30/17 15:44 11/30/17 15:44 11/30/17 15:44 11/30/17 15:44 Results - Labs 12/01/17 03:21 12/01/17 03:21 Abnormal lab results WBC 16.1 K/mcL (4.3-11.1) H 12/01/17 03:21 MPV 9.0 fL (9.4-12.4) L 12/01/17 03:21 Neutrophils # 11.0 K/mcL (1.6-8.9) H 12/01/17 03:21 Creatinine 0.59 mg/dL (0.70-1.30) L 12/01/17 03:21 BUN/Creatinine Ratio 29 (6-26) H 12/01/17 03:21 Glucose 123 mg/dL (70-105) H 12/01/17 03:21 POC Glucose 298 (58-89) H 11/30/17 20:20 Ur Specific [place] > 1.030 (1.010-1.025) H 11/30/17 17:10 Urine Glucose (UA) >=1000 mg/dL (Normal) H 11/30/17 17:10 Urine Microscopic RBC 3-5 per hpf (0-3) H 11/30/17 17:10 Urine Microscopic WBC 5-15 per hpf (0-3) H 11/30/17 17:10 Ur Squamous Epith Cells Moderate per lpf (None-Few) H 11/30/17 17:10 Diabetes panel 12/01/17 Range/Units 03:21 Sodium 140 D (136-145) mEq/L Potassium 3.8 (3.5-5.1) mEq/L Chloride 107 (98-107) mEq/L Carbon Dioxide 28 (23-29) mEq/L BUN 17 (6-20) mg/dL Creatinine 0.59 L (0.70-1.30) mg/dL Glucose 123 H (70-105) mg/dL Calcium 8.8 (8.6-10.3) mg/dL Calcium panel 12/01/17 Range/Units 03:21 Calcium 8.8 (8.6-10.3) mg/dL Pituitary panel 12/01/17 Range/Units 03:21 Sodium 140 D (136-145) mEq/L Potassium 3.8 (3.5-5.1) mEq/L Chloride 107 (98-107) mEq/L Carbon Dioxide 28 (23-29) mEq/L BUN 17 (6-20) mg/dL Creatinine 0.59 L (0.70-1.30) mg/dL Glucose 123 H (70-105) mg/dL Calcium 8.8 (8.6-10.3) mg/dL Adrenal panel 12/01/17 Range/Units 03:21 Sodium 140 D (136-145) mEq/L Potassium 3.8 (3.5-5.1) mEq/L Chloride 107 (98-107) mEq/L Carbon Dioxide 28 (23-29) mEq/L BUN 17 (6-20) mg/dL Creatinine 0.59 L (0.70-1.30) mg/dL Glucose 123 H (70-105) mg/dL Calcium 8.8 (8.6-10.3) mg/dL All other labs normal. Consult Discharge Plan - Plan [facility]errals: [facility]Primary Care Provider[facility] - <Maria Guadalupe Ramirez - Last Filed: 12/01/17 19:03> Date of Encounter: 12/01/17 Assessment and Plan (1) Cellulitis of pubic region Current Visit: Yes Status: Acute patient with phlegmon on CT, will turn into abscess, area warm,erythematous, tender will plan I/D in OR tomorrow, risks and benefit discussed and he wishes to proceed ok diet today npo midnight abx (2) Phimosis Current Visit: Yes Status: Chronic urology consulted (3) Candidiasis Current Visit: Yes Status: Acute penile candidiasis, start diflucan Past Med Surg Social Fam HX - Past Medical History Medical history: other (Obstructive sleep apnea, phymosis) - Past Surgical History Surgical History: other Review of Systems All systems PM: reviewed and no additional remarkable complaints except as stated All systems PM: The remainder of the systems were reviewed and are negative General Surgery Exam Initial Vital Signs Temp Pulse Resp BP Pulse Ox 97.3 F L 103 18 126/64 96 11/30/17 15:44 11/30/17 15:44 11/30/17 15:44 11/30/17 15:44 11/30/17 15:44 - General physical appearance well developed, well nourished, no distress - Eyes PERRL, normal ocular movement - ENT normal mucosa, CN 2-12 grossly intact - Neck trachea midline - Respiratory normal respiratory effort, clear to auscultation - Cardiovascular Cardiovascular exam: Present: RRR - Abdomen Abdomen general surgery: Present: bowel sounds present, soft, non tender - Genitourinary Present: other (left inguinal region erythema, tenderness, induration, no obvious fluctuance; phymosis and candidiasis) - Integumentary Integumentary general surgery: Present: warm and dry - Neurologic Present: CN 2-12 grossly intact - Musculoskeletal Present: normal posture - Psychiatric Psychiatric general surgery: Present: A&Ox3 Exam Initial Vital Signs Temp Pulse Resp BP Pulse Ox 97.3 F L 103 18 126/64 96 11/30/17 15:44 11/30/17 15:44 11/30/17 15:44 11/30/17 15:44 11/30/17 15:44 Results - Labs 12/01/17 03:21 12/01/17 03:21 Abnormal lab results WBC 16.1 K/mcL (4.3-11.1) H 12/01/17 03:21 MPV 9.0 fL (9.4-12.4) L 12/01/17 03:21 Neutrophils # 11.0 K/mcL (1.6-8.9) H 12/01/17 03:21 Creatinine 0.59 mg/dL (0.70-1.30) L 12/01/17 03:21 BUN/Creatinine Ratio 29 (6-26) H 12/01/17 03:21 Glucose 123 mg/dL (70-105) H 12/01/17 03:21 POC Glucose 367 (58-89) H 12/01/17 16:02 Ur Specific [place] > 1.030 (1.010-1.025) H 11/30/17 17:10 Urine Glucose (UA) >=1000 mg/dL (Normal) H 11/30/17 17:10 Urine Microscopic RBC 3-5 per hpf (0-3) H 11/30/17 17:10 Urine Microscopic WBC 5-15 per hpf (0-3) H 11/30/17 17:10 Ur Squamous Epith Cells Moderate per lpf (None-Few) H 11/30/17 17:10 Diabetes panel 12/01/17 Range/Units 03:21 Sodium 140 D (136-145) mEq/L Potassium 3.8 (3.5-5.1) mEq/L Chloride 107 (98-107) mEq/L Carbon Dioxide 28 (23-29) mEq/L BUN 17 (6-20) mg/dL Creatinine 0.59 L (0.70-1.30) mg/dL Glucose 123 H (70-105) mg/dL Calcium 8.8 (8.6-10.3) mg/dL Calcium panel 12/01/17 Range/Units 03:21 Calcium 8.8 (8.6-10.3) mg/dL Pituitary panel 12/01/17 Range/Units 03:21 Sodium 140 D (136-145) mEq/L Potassium 3.8 (3.5-5.1) mEq/L Chloride 107 (98-107) mEq/L Carbon Dioxide 28 (23-29) mEq/L BUN 17 (6-20) mg/dL Creatinine 0.59 L (0.70-1.30) mg/dL Glucose 123 H (70-105) mg/dL Calcium 8.8 (8.6-10.3) mg/dL Adrenal panel 12/01/17 Range/Units 03:21 Sodium 140 D (136-145) mEq/L Potassium 3.8 (3.5-5.1) mEq/L Chloride 107 (98-107) mEq/L Carbon Dioxide 28 (23-29) mEq/L BUN 17 (6-20) mg/dL Creatinine 0.59 L (0.70-1.30) mg/dL Glucose 123 H (70-105) mg/dL Calcium 8.8 (8.6-10.3) mg/dL All other labs normal. Vital Signs Temp Pulse Resp BP Pulse Ox 12/01/17 16:37 93 12/01/17 16:03 98.5 F 89 16 110/67 93 12/01/17 11:28 98.0 F 91 16 101/65 91 12/01/17 07:40 16 94 12/01/17 06:47 98.2 F 94 16 105/65 94 12/01/17 03:45 97.6 F 87 16 102/69 93 12/01/17 01:04 111/72 11/30/17 23:12 98.1 F 89 16 94/69 95 11/30/17 20:34 97.6 F 99 16 126/81 95 11/30/17 19:32 101 18 124/73 94 Intake and Output 12/01/17 12/01/17 12/01/17 07:59 15:59 23:59 Intake Total 1000 / 1000 340 / 340 350 / 350 Output Total 400 / 400 Balance 1000 / 1000 -60 / -60 350 / 350 Intake: IV Fluids 1000 / 1000 100 / 100 350 / 350 0.9 % Sodium Chloride 1,000 ML 1000 / 1000 @ 75 mls/hr IVC .[id number] [facility] Rx #:[id number] Diflucan Premix 200 MG/100 ML 100 / 100 200 mg In 100 ml @ 100 mls/hr IVPB DAILY [facility] Rx#:[id number] Zosyn 3.375 GM In 0.9 % Sodium 100 / 100 Chloride (Mini-Bag +) 100 ML @ 25 mls/hr IVPB Q8HR [facility] Rx#: [id number] Vancocin 1,000 MG In 0.9 % 250 / 250 Sodium Chloride 250 ML @ 167 mls/hr IVPB Q12H [facility] Rx#: [id number] Oral 240 / 240 Output: Urine 400 / 400 Other: Meal Lunch Percent of Meal Consumed 100% Stool Size Small Stool Consistency soft formed Stool Color Brown # Voids 1 # Bowel Movements 1 Weight 72.983 kg Blood Glucose* 75 322 367 Patient Weight 12/01/17 23:59 Weight 72.983 kg - Imaging CT scan - abdomen: report reviewed, image reviewed CT scan - pelvis: report reviewed, image reviewed - Attending Attestation I examined this patient and my medical decision-making was reviewed with the Resident Physician. I agree with the documented findings, disposition and treatment plan as described except to the extent set forth below.
[2017-12-01] MEDS: Insulin DETEMIR 100 UNIT/ML X5UNITS SQ SCH (17:38)
[2017-12-01] MEDS: traZODone 50 MG TABLET PO SCH (20:10)
[2017-12-01] MEDS ORDERED: 0.9 % Sodium Chloride 250 ML ONE (20:14)
[2017-12-02] MEDS: *HR* FentaNYL (PF) 100 MCG/2 ML VIAL IVP PRN ×3 (04:53→23:10)
[2017-12-02] MEDS: *HR* Heparin 5,000 UNIT/ML VIAL SQ SCH ×2 (04:53→17:16)
[2017-12-02 05:06] LABS: Basophils % 0.3 %; Eosinophils # 0.6 K/mcL (0.0-0.6); Eosinophils % 3.8 %; Hemoglobin 13.2 g/dL (12.9-16.9); Immature Granulocytes % 0.8 % (0-4); Lymphocytes # 3.2 K/mcL (0.6-4.6); Mean Corpuscular HGB Conc 33.8 g/dL (31.6-35.5); Mean Corpuscular Hemoglobin 30.4 pg (28.0-33.3); Mean Corpuscular Volume 89.9 fL (83.0-100.0); Mean Platelet Volume 8.9 fL (9.4-12.4); Monocytes # 0.9 K/mcL (0.0-1.3); Monocytes % 6.1 %; Neutrophils # 9.8 K/mcL (1.6-8.9); Platelet Count 269 K/mcL (140-400); Red Blood Count 4.34 M/mcL (4.19-5.50); Red Cell Distribution Width 12.3 % (11.5-14.5)
[2017-12-02 06:09] LABS: BUN/Creatinine Ratio 20 (6-26); Blood Urea Nitrogen 13 mg/dL (6-20); Calcium 8.5 mg/dL (8.6-10.3); Carbon Dioxide 23 mEq/L (23-29); Chloride 105 mEq/L (98-107); Glucose 312 mg/dL (70-105); Osmolality,Calculated 284 (280-300); Potassium 4.2 mEq/L (3.5-5.1); Sodium 131 mEq/L (136-145); eGFR For African Americans > 60 (> 60); eGFR For Non-African Americans > 60 (> 60)
[2017-12-02 06:20] LABS: Vancomycin,Trough 3.3 mcg/mL (10-20)
[2017-12-02] MEDS ORDERED: *HR* FentaNYL (PF) 100 MCG/2 ML VIAL ONE (07:19)
[2017-12-02] MEDS ORDERED: *HR* Midazolam HCl 2 MG/2 ML VIAL ONE (07:19)
[2017-12-02] MEDS ORDERED: *HR* Propofol 200 MG/20 ML VIAL IVP ONE (07:20)
[2017-12-02] MEDS ORDERED: *HR* Succinylcholine 200 MG/10 ML VIAL IVP ONE (07:21)
[2017-12-02] MEDS ORDERED: Lidocaine -MPF 2% 2 ML VIAL ONE (07:21)
[2017-12-02] MEDS: Budesonide/Formoterol 80/4.5 MDI IH SCH ×3 (07:31→23:32)
[2017-12-02] MEDS ORDERED: Ringers Solution, Lactated 1,000 ML ONE (07:39)
--- NOTE | 2017-12-02 07:51 | Anesthesia Evaluation PreOp ---
Date of Encounter: 12/02/17 Time of Encounter: 07:51 - Past History Planned Operation: I&D groin abscess Cardiac History: Denies any Significant Hx Pulmonary History: Smoker, COPD CONSOLIDATOR History: Other (anxiety/depression) Other Medical History: Diabetes Type II (insulin dependent - recently poorly controlled), Other (sepsis due to groin infection) Anesthesia History: No Prior Anesthetic Complications, Past Anesthesia (shoulder , knee, tonsils) Alcohol Use: none Drug use: none Medications and Allergies Insulin Glargine [Lantus] 28 unit SQ QPM 05/23/17 [History] Metformin HCl [Fortamet] 1,000 mg PO DAILY 05/23/17 [History] Sertraline [Zoloft] 100 mg PO BID 05/23/17 [History] glipiZIDE [Glipizide] 10 mg PO BID 05/23/17 [History] Acetaminophen/Aspirin/Caffeine [Excedrin EX] 1 each PO Q6H PRN 11/30/17 [History ] Budesonide/Formoterol 80/4.5 [Symbicort 80/4.5] 2 puff IH BID 11/30/17 [History ] Docusate [Colace] 100 mg PO BID 11/30/17 [History] Gabapentin [Neurontin] 300 mg PO TID 11/30/17 [History] Menthol/Camphor [Icy Hot Advanced Relief Cream] 1 appl TP AD 11/30/17 [History] Oxycodone HCl/Acetaminophen [Percocet 10-325 mg Tablet] 1 each PO Q6H PRN [History] Sennosides [Senna] 17.2 mg PO DAILY 11/30/17 [History] Sildenafil Citrate [Viagra] 50 mg PO AD PRN 11/30/17 [History] traZODone [TraZODone] 50 mg PO HS 11/30/17 [History] 3 Allergy/AdvReac Type Severity Reaction Status Date / Time No Known Allergies Allergy Verified 05/23/17 11:12 - Meds/Allergy Pre-op Review Medications Reviewed: Yes Allergies Reviewed: Yes Beta Blockers on Current Med List: No Anesthesia Results - Labs 12/02/17 04:49 12/02/17 04:49 - Imaging EKG: report reviewed Anesthesia Exam Last Vital Signs Temp 97.8 F 12/02/17 05:21 Pulse 86 12/02/17 05:21 Resp 16 12/02/17 07:33 BP 115/75 12/02/17 05:21 Pulse Ox 92 12/02/17 07:33 Weight: 73 kg NPO (# of Hours): > 8 hrs - HEENT Pupil (Motor): Pupils equal, EOMI Mallampati: III Teeth: Edentulous Oral Opening: Greater than 3 - CONSOLIDATOR LOC: Oriented - Cardiac Rhythm: Regular Murmur: None - Pulmonary Breath Sounds: bilateral Clear Respiratory Effort: Symmetrical Anesthesia Assess/Plan ASA Score: 3 Modified [place] Scale for Level of Consciousness: Cooperative, oriented, and tranquil Anesthetic Plan: General Monitoring Plan: Standard Monitors Recovery Plan: PACU
[2017-12-02] MEDS ORDERED: *HR* OxyCODONE Immed Rel 5 MG TABLET PO PRN (07:54)
[2017-12-02] MEDS ORDERED: *HR* Promethazine 25 MG/ML VIAL IVP PRN ×2 (07:54→09:41)
--- NOTE | 2017-12-02 08:17 | Urology - Consult Note ---
Date of Encounter: 12/02/17 Time of Encounter: 08:15 - Assessment and Plan (1) Scrotal edema Current Visit: Yes Status: Acute Assessment and plan: 47-year-old man with scrotal edema and erythema. This is likely due to his groin infection tracking inferiorly. I recommend keeping his scrotum elevated. Consider use of triamcinolone 0.1% cream to the scrotal skin twice a day for contact dermatitis related to urine. (2) Phimosis Current Visit: Yes Status: Chronic Assessment and plan: 47-year-old man with penile edema secondary to a groin infection. Anticipate improvement in the edema as his infection is treated. Continue scrotal and penile elevation. Consider use of clotrimazole 1% cream to the foreskin and glans twice a day for any balanitis. He can follow up me in the urology clinic in 2-4 weeks for reassessment. At this time there is no evidence of paraphimosis. The meatus is visible. The glans appears viable underneath the foreskin. I do not think he needs a dorsal slit this time. Urology CN:HPI Consult date: 12/02/17 Reason for consult Urology: Other (phimosis) History of present illness: 47-year-old diabetic male presents with a right groin abscess. In the last 6 days he has had worsening swelling in his scrotum and foreskin. He reports having difficulty retracting his foreskin. His glans appears inflamed to him. He is able to urinate. He describes that there is some urine collecting on his scrotal skin. He denies any urinary issues. His diabetes has been fairly well controlled with a recent hemoglobin A1c of 6.7. However since this infection started, he has elevated blood sugars. Past Med Surg Social Fam HX - Past Medical History Medical history: other (Obstructive sleep apnea, phymosis) Psychiatric history: anxiety, depression, other (History of substance abuse. Sober from meth, cocaine, and weed for 6 years. Last drink of alcohol 1 year ago.) - Past Surgical History Surgical History: other - Social History Smoking Status: Current every day smoker Smokeless Tobacco Status: No Alcohol use: none Drug use: none Medications and Allergies Insulin Glargine [Lantus] 28 unit SQ QPM 05/23/17 [History] Metformin HCl [Fortamet] 1,000 mg PO DAILY 05/23/17 [History] Sertraline [Zoloft] 100 mg PO BID 05/23/17 [History] glipiZIDE [Glipizide] 10 mg PO BID 05/23/17 [History] Acetaminophen/Aspirin/Caffeine [Excedrin EX] 1 each PO Q6H PRN 11/30/17 [History ] Budesonide/Formoterol 80/4.5 [Symbicort 80/4.5] 2 puff IH BID 11/30/17 [History ] Docusate [Colace] 100 mg PO BID 11/30/17 [History] Gabapentin [Neurontin] 300 mg PO TID 11/30/17 [History] Menthol/Camphor [Icy Hot Advanced Relief Cream] 1 appl TP AD 11/30/17 [History] Oxycodone HCl/Acetaminophen [Percocet 10-325 mg Tablet] 1 each PO Q6H PRN [History] Sennosides [Senna] 17.2 mg PO DAILY 11/30/17 [History] Sildenafil Citrate [Viagra] 50 mg PO AD PRN 11/30/17 [History] traZODone [TraZODone] 50 mg PO HS 11/30/17 [History] 3 Allergy/AdvReac Type Severity Reaction Status Date / Time No Known Allergies Allergy Verified 05/23/17 11:12 Review of Systems - Constitutional no chills, no fever(s) - EENT Nose, mouth and throat: no dizziness - Cardiovascular no chest pain - Respiratory no dyspnea - Gastrointestinal no nausea, no vomiting - Genitourinary no flank pain, no hematuria - Musculoskeletal no back pain - Integumentary erythema, no rash - Neurological no weakness - Psychiatric no suicidal ideation - Hematologic/Lymphatic no easy bleeding - Allergic/Immunologic no wheezing Exam Initial Vital Signs Temp Pulse Resp BP Pulse Ox 97.3 F L 103 18 126/64 96 11/30/17 15:44 11/30/17 15:44 11/30/17 15:44 11/30/17 15:44 11/30/17 15:44 - General physical appearance Present: well developed, well nourished, no distress - Eyes Absent: icteric - ENT Present: normal nares - Respiratory Present: normal respiratory effort - Cardiovascular Cardiovascular exam IM: RRR - Abdomen Abdomen: Present: soft - Genitourinary other (Edematous foreskin with scrotal erythema. There is an abscess in the left inguinal region. The foreskin is phimotic. Testicles are normal bilaterally.) Penis: Present: edema, phimosis Urethral meatis: Present: patent Testicles: Present: normal size - Integumentary Present: other (Groin abscess) - Neurologic Present: normal coordination - Musculoskeletal Present: other (normal strength.) Urology Results - Labs 12/02/17 04:49 12/02/17 04:49 Abnormal lab results WBC 14.7 K/mcL (4.3-11.1) H 12/02/17 04:49 MPV 8.9 fL (9.4-12.4) L 12/02/17 04:49 Neutrophils # 9.8 K/mcL (1.6-8.9) H 12/02/17 04:49 Sodium 131 mEq/L (136-145) L 12/02/17 04:49 Creatinine 0.65 mg/dL (0.70-1.30) L 12/02/17 04:49 Glucose 312 mg/dL (70-105) H 12/02/17 04:49 POC Glucose 210 (58-89) H 12/01/17 21:03 Calcium 8.5 mg/dL (8.6-10.3) L 12/02/17 04:49 Ur Specific [place] > 1.030 (1.010-1.025) H 11/30/17 17:10 Urine Glucose (UA) >=1000 mg/dL (Normal) H 11/30/17 17:10 Urine Microscopic RBC 3-5 per hpf (0-3) H 11/30/17 17:10 Urine Microscopic WBC 5-15 per hpf (0-3) H 11/30/17 17:10 Ur Squamous Epith Cells Moderate per lpf (None-Few) H 11/30/17 17:10 Vancomycin Trough 3.3 mcg/mL (10-20) L 12/02/17 04:49 Diabetes panel 12/02/17 Range/Units 04:49 Sodium 131 L (136-145) mEq/L Potassium 4.2 (3.5-5.1) mEq/L Chloride 105 (98-107) mEq/L Carbon Dioxide 23 (23-29) mEq/L BUN 13 (6-20) mg/dL Creatinine 0.65 L (0.70-1.30) mg/dL Glucose 312 H (70-105) mg/dL Calcium 8.5 L (8.6-10.3) mg/dL Calcium panel 12/02/17 Range/Units 04:49 Calcium 8.5 L (8.6-10.3) mg/dL Pituitary panel 12/02/17 Range/Units 04:49 Sodium 131 L (136-145) mEq/L Potassium 4.2 (3.5-5.1) mEq/L Chloride 105 (98-107) mEq/L Carbon Dioxide 23 (23-29) mEq/L BUN 13 (6-20) mg/dL Creatinine 0.65 L (0.70-1.30) mg/dL Glucose 312 H (70-105) mg/dL Calcium 8.5 L (8.6-10.3) mg/dL Adrenal panel 12/02/17 Range/Units 04:49 Sodium 131 L (136-145) mEq/L Potassium 4.2 (3.5-5.1) mEq/L Chloride 105 (98-107) mEq/L Carbon Dioxide 23 (23-29) mEq/L BUN 13 (6-20) mg/dL Creatinine 0.65 L (0.70-1.30) mg/dL Glucose 312 H (70-105) mg/dL Calcium 8.5 L (8.6-10.3) mg/dL All other labs normal. - Imaging CT scan - abdomen: report reviewed, image reviewed CT scan - pelvis: report reviewed, image reviewed Consult Discharge Plan - Plan [facility]errals: [facility]Primary Care Provider[facility] -
[2017-12-02] MEDS ORDERED: Dexamethasone 4 MG/ML VIAL ONE (08:24)
[2017-12-02] MEDS ORDERED: Ondansetron 4 MG/2 ML VIAL ONE (08:24)
[2017-12-02] MEDS ORDERED: *HR* PHENYLEPHRINE 1,000 MCG/10 ML SYRINGE IVP ONE (08:26)
--- NOTE | 2017-12-02 08:43 | Operative Note ---
Date of procedure: 12/02/17 Pre-op diagnosis: left groin abscess Post-op diagnosis: same Procedure: Incision and drainage left groin abscess Complications: none immediate Anesthesia: GETA Surgeon: Maria Guadalupe Ramirez Was there an administrative assistant present: No Estimated blood loss (cc): 3 Specimen: aerobic/anaerobic cultures Condition: stable Disposition: PACU Procedure in Detail: Patient was brought into operating suite and placed supine on OR table. Signin was performed and everyone was in agreement. Anesthesia was induced and patient had LMA placed by anesthesia without incident. Left groin was prepped and draped in usual sterile fashion. Time out was performed and everyone was in agreement. An elliptical incision through the skin into the subcutaneous tissue was made with an 11 blade. Purulent drainage drained from the wound. Aerobic and anaerobic cultures were obtained. The abscess cavity was suctioned free of pus. The cavity was irrigated with sterile saline. There was no obvious bleeding. The wound was packed with 1/4" iodoform packing. 4x4 gauze and medipore tape were applied as a dressing. The patient tolerated the procedure well. He was awoken from anesthesia and the LMA was removed without incident. He was taken to pacu in stable condition. All instrument and lap counts were correct at the end of the case.
--- NOTE | 2017-12-02 09:21 | Anesthesia Evaluation Post Op ---
Date of Encounter: 12/02/17 Time of Encounter: 09:20 - Vital Signs Vital Signs: Last Vital Signs Temp 98.3 F 12/02/17 09:19 Pulse 84 12/02/17 09:19 Resp 16 12/02/17 09:19 BP 129/82 12/02/17 09:19 Pulse Ox 95 12/02/17 09:19 - Lungs Lungs: Clear Ascult./Percussion - Airway Airway: Non-obstructed - Cardiovascular Regular Rate - Mental Status Mental Status: Alert & Oriented, Answers Appropriately - Pain Pain Scale: 2 - Nausea Vomiting Nausea Vomiting: Not Present - Hydration Hydration: Ice chips - Discharge PostOp Status: Transfer Patient to floor
[2017-12-02] MEDS ORDERED: D5% in Water 1,000 ML IVC PRN (09:41)
[2017-12-02] MEDS ORDERED: Naloxone 0.4 MG/ML INJ IVP PRN (09:41)
[2017-12-02] MEDS ORDERED: OXYCODONE Oral CONC 10 MG/0.5 ML ORAL.SYG SL PRN ×4 (09:41→10:56)
[2017-12-02] MEDS ORDERED: Ondansetron 4 MG/2 ML VIAL IVP PRN (09:41)
[2017-12-02] MEDS ORDERED: *HR* Dextrose 50 % in Water (Syg) 50 ML SYRINGE IVP PRN (09:41)
[2017-12-02] MEDS ORDERED: Dextrose Gel 15 GM/37.5 ML TUBE PO PRN ×2 (09:41)
[2017-12-02] MEDS: Gabapentin 300 MG CAPSULE PO SCH ×4 (10:05→20:45)
[2017-12-02] MEDS: Nicotine 21 MG PATCH.TD24 TD SCH ×2 (10:06→19:31)
[2017-12-02] MEDS: Fluconazole 200 MG/100 ML 200 MG/100 ML BAG IVPB SCH ×2 (10:12→19:31)
[2017-12-02] MEDS: Piperacillin/Tazobactam 3.375 GM in 0.9 % Sodium Chloride Mini Bag 100 ML IVPB SCH ×3 (10:15→19:37)
[2017-12-02] MEDS: Insulin LISPRO 300 UNITS/3 ML VIAL SQ SCH ×9 (10:26→20:46)
--- NOTE | 2017-12-02 10:55 | Internal Med Progress Note ---
Date of Encounter: 12/02/17 Time of Encounter: 10:30 - Assessment and plan (1) Abscess of groin, left Current Visit: Yes Status: Acute Assessment and plan: Status post I & D by surgery today continue empirical antibiotic Zosyn, vancomycin and antifungal fluconazole so far blood cultures no growth we will follow-up on the wound culture from today's I & D (2) Cellulitis of pubic region Current Visit: Yes Status: Acute Assessment and plan: CT pelvis shows cellulitis and possible phlegmon of left pubis; continue IV Vancomycin, start IV Zosyn pain control with PRN IV Fentanyl and PO Percocet Keep scrotum elevated continue symptomatic and supportive care urology evaluated the patient- recommended outpatient follow-up (3) DM (diabetes mellitus) Current Visit: Yes Status: Chronic Assessment and plan: Fairly controlled still showing fluctuations continue insulin sliding scale plus Levemir we will check HbA1C Qualifiers: Diabetes mellitus type: type 2 Diabetes mellitus long-term insulin use: with long-term use Diabetes mellitus complication status: with unspecified complications Qualified Code(s): E11.8 - Type 2 diabetes mellitus with unspecified complications; Z79.4 - watermaster (current) use of insulin; Z79.4 - watermaster (current) use of insulin; Z79.4 - watermaster (current) use of insulin; Z79.4 - custodial (current) use of insulin (4) Tobacco abuse Current Visit: Yes Status: Acute Assessment and plan: Counseled to quit smoking placed on nicotine patch (5) Anxiety and depression Current Visit: Yes Status: Chronic Assessment and plan: continue home meds; - Subjective Interval history: Mr. Muñiz is a 47-year-old gentlemen with a known past medical history of diabetes type II and depression who admitted here with left groin abscess and pubic cellulites. Patient was admitted in the hospital and started him on empirical antibiotic Zosyn, vancomycin and fluconazole. Patient was evaluated by surgery who did I & D of left groin abscess today. Patient was also seen by urologist and recommended to continue topical anti fungal cream and & antibiotic. Pt still complaining about severe pain in his groin, requesting for more frequent pain medication. He denied any chest pain/shortness of breath. No fever - Constitutional Vitals: Temp Pulse Resp BP Pulse Ox 98.2 F 92 16 135/84 94 12/02/17 10:15 12/02/17 10:15 12/02/17 10:15 12/02/17 10:15 12/02/17 10:37 General appearance: Present: mild distress (With pain), A&O X 3, answers questions appropriately - Head Head exam: Present: atraumatic, normal inspection - Neck Neck exam general surgery: Present: supple - Respiratory Respiratory exam: Present: decreased breath sounds. Absent: rales, respiratory distress, rhonchi, wheezes - Cardiovascular Cardiovascular exam: Present: RRR, +S1, +S2. Absent: tachycardia - GI/Abdominal GI/Abdominal exam: Present: normal bowel sounds, soft. Absent: rebound, rigid, tenderness - exam: Present: scrotal swelling External exam: Present: erythema Additional comments: Moderate swelling of the scrotal sac noticed with edema and tenderness status post I&D of the left groin abscess - Extremities Exam Extremities exam: Absent: calf tenderness, pedal edema, tenderness - Back Exam Back exam: Absent: CVA tenderness (L), CVA tenderness (R) - Neurological Exam Neurological exam: Present: alert, oriented X3 Internal Medicine: Result - Labs CBC & Chem 7: 12/02/17 04:49 12/02/17 04:49 Labs: Short CBC 12/02/17 Range/Units 04:49 WBC 14.7 H (4.3-11.1) K/mcL Hgb 13.2 (12.9-16.9) g/dL Hct 39.0 (37.5-50.1) % Plt Count 269 (140-400) K/mcL Neutrophils # 9.8 H (1.6-8.9) K/mcL BMP 12/02/17 04:49 Sodium 131 L Potassium 4.2 Chloride 105 Carbon Dioxide 23 BUN 13 Creatinine 0.65 L Glucose 312 H Calcium 8.5 L Cardiac Enzymes 12/01/17 Range/Units 14:01 Troponin I < 0.03 (< 0.04) ng/mL Consult Discharge Plan - Plan [facility]: [facility] Care Provider[facility] -
[2017-12-02 11:11] LABS: Estimated Average Glucose 395 mg/dl; Hemoglobin A1C 15.4 %
[2017-12-02] MEDS ORDERED: Insulin DETEMIR 100 UNIT/ML X5UNITS SQ SCH (18:00)
[2017-12-02] MEDS: Sennosides 8.6 MG TABLET PO SCH (19:31)
[2017-12-02] MEDS: traZODone 50 MG TABLET PO SCH (20:45)
[2017-12-03] MEDS ORDERED: Insulin LISPRO 300 UNITS/3 ML VIAL SQ ONE (01:00)
[2017-12-03] MEDS: Piperacillin/Tazobactam 3.375 GM in 0.9 % Sodium Chloride Mini Bag 100 ML IVPB SCH ×4 (01:07→18:34)
[2017-12-03] MEDS: *HR* Heparin 5,000 UNIT/ML VIAL SQ SCH ×2 (06:42→18:33)
[2017-12-03 06:48] LABS: Basophils % 0.1 %; Eosinophils # 0.4 K/mcL (0.0-0.6); Eosinophils % 2.6 %; Hemoglobin 13.8 g/dL (12.9-16.9); Immature Granulocytes % 1.3 % (0-4); Lymphocytes # 3.5 K/mcL (0.6-4.6); Lymphocytes % 24.8 %; Mean Corpuscular HGB Conc 35.4 g/dL (31.6-35.5); Mean Corpuscular Hemoglobin 31.2 pg (28.0-33.3); Mean Corpuscular Volume 88.2 fL (83.0-100.0); Mean Platelet Volume 8.9 fL (9.4-12.4); Monocytes # 0.7 K/mcL (0.0-1.3); Neutrophils # 9.3 K/mcL (1.6-8.9); Platelet Count 275 K/mcL (140-400); Red Blood Count 4.42 M/mcL (4.19-5.50); Red Cell Distribution Width 12.3 % (11.5-14.5); Segmented Neutrophils % 66.2 %
[2017-12-03 07:12] LABS: BUN/Creatinine Ratio 22 (6-26); Blood Urea Nitrogen 13 mg/dL (6-20); Calcium 8.9 mg/dL (8.6-10.3); Carbon Dioxide 25 mEq/L (23-29); Chloride 104 mEq/L (98-107); Glucose 303 mg/dL (70-105); Osmolality,Calculated 291 (280-300); Potassium 3.9 mEq/L (3.5-5.1); Sodium 135 mEq/L (136-145); eGFR For African Americans > 60 (> 60); eGFR For Non-African Americans > 60 (> 60)
--- NOTE | 2017-12-03 07:22 | Urology Progress Note ---
Date of Encounter: 12/03/17 Time of Encounter: 07:20 - Assessment and Plan (1) Scrotal edema Current Visit: Yes Status: Acute Assessment and plan: Continue scrotal elevation. (2) Phimosis Current Visit: Yes Status: Chronic Assessment and plan: Will monitor for now. Can follow up as an outpatient. Progress Note Narrative: 47 year old man with phimosis s/p I&D of groin abscess. Objective Initial Vital Signs Temp Pulse Resp BP Pulse Ox 97.3 F L 103 18 126/64 96 11/30/17 15:44 11/30/17 15:44 11/30/17 15:44 11/30/17 15:44 11/30/17 15:44 - General physical appearance Present: well developed, well nourished, no distress - Respiratory Present: normal respiratory effort - Abdomen Present: soft (Dressig over abscess incision) - Genitourinary Present: other (Penis is edematous. Erythema somewhat improved.) - Labs 12/03/17 06:32 12/03/17 06:32 Diabetes panel 12/01/17 12/03/17 Range/Units 14:01 06:32 Sodium 135 L (136-145) mEq/L Potassium 3.9 (3.5-5.1) mEq/L Chloride 104 (98-107) mEq/L Carbon Dioxide 25 (23-29) mEq/L BUN 13 (6-20) mg/dL Creatinine 0.58 L (0.70-1.30) mg/dL Glucose 303 H (70-105) mg/dL Hemoglobin A1c 15.4 H ( - 5.6) % Calcium 8.9 (8.6-10.3) mg/dL Calcium panel 12/03/17 Range/Units 06:32 Calcium 8.9 (8.6-10.3) mg/dL Pituitary panel 12/03/17 Range/Units 06:32 Sodium 135 L (136-145) mEq/L Potassium 3.9 (3.5-5.1) mEq/L Chloride 104 (98-107) mEq/L Carbon Dioxide 25 (23-29) mEq/L BUN 13 (6-20) mg/dL Creatinine 0.58 L (0.70-1.30) mg/dL Glucose 303 H (70-105) mg/dL Calcium 8.9 (8.6-10.3) mg/dL Adrenal panel 12/03/17 Range/Units 06:32 Sodium 135 L (136-145) mEq/L Potassium 3.9 (3.5-5.1) mEq/L Chloride 104 (98-107) mEq/L Carbon Dioxide 25 (23-29) mEq/L BUN 13 (6-20) mg/dL Creatinine 0.58 L (0.70-1.30) mg/dL Glucose 303 H (70-105) mg/dL Calcium 8.9 (8.6-10.3) mg/dL Consult Discharge Plan - Plan [facility]errals: [facility] [Primary Care Provider] -
[2017-12-03] MEDS: Budesonide/Formoterol 80/4.5 MDI IH SCH ×2 (07:47→23:27)
[2017-12-03] MEDS: Gabapentin 300 MG CAPSULE PO SCH ×3 (08:12→20:15)
[2017-12-03] MEDS: Nicotine 21 MG PATCH.TD24 TD SCH (08:13)
[2017-12-03] MEDS: Fluconazole 200 MG/100 ML 200 MG/100 ML BAG IVPB SCH (08:15)
[2017-12-03] MEDS: Insulin LISPRO 300 UNITS/3 ML VIAL SQ SCH ×7 (08:15→21:48)
[2017-12-03] MEDS: Insulin DETEMIR 100 UNIT/ML X5UNITS SQ SCH ×2 (11:30→21:47)
--- NOTE | 2017-12-03 11:30 | General Surgery Progress Note ---
Addendum entered and electronically signed by Ottoniel Fischer DO 12/03/17 14:15: DISREGARD THIS NOTE. SEE THE [facility]LE DBA NOTE FOR TODAY. Original Note: <Ottoniel Fischer - Last Filed: 12/03/17 13:38> Date of Encounter: 12/03/17 Time of Encounter: 11:27 - Assessment and Plan (1) Status post incision and drainage Current Visit: Yes Status: Acute Patient is 1 day s/p I&D and packing of the left groin abscess. Surgical incision is clean, dry and intact. Of note, patient reported that the bedside RN changed the dressing and packing last night on 12/02/17 at 2300. The bedside RN used 1/2 inch plain gauze. Orders stated that it should 1/4 inch. Wound bed was pink and moist with minimal drainage. No need to replace packing until prior to discharge. Lastly, the patient report that his fiance is in nursing school and will change the packing at home. Patient was informed that the fianc will have to change the packing under observation by the RN prior to discharge. -Continue pain control -Antibiotics with Zosyn and vancomycin -IVF -Plan for possible discharge tomorrow per medicine team. Patient has a follow- up appointment with the surgery outpatient clinic on December 11 with Adrienne Jean Baptiste CNP. Wound care instructions are given. Surgery has provided prescriptions for supplies and a consult to social work for possible home health has been placed. Surgery will sign off at this time. Thank you for allowing surgery to be a part of Mr. Muñiz's care. (2) Phlegmon Current Visit: Yes Status: Acute CT scan on 11/30/17 suggestive of phlegmon in the left pubis. Patient tolerated I &D well. (3) Cellulitis of pubic region Current Visit: Yes Status: Acute CT of abdomen and pelvis on 11/30/2017 suggests cellulitis involving the mons pubis, left greater than right. -Keep scrotum elevated -Continue symptomatic and supportive care -Urology is on board (4) Phimosis Current Visit: Yes Status: Chronic Urology is following. Plan per urology (5) Pulmonary nodule Current Visit: Yes Status: Acute 7.5 mm noncalcified left lower lobe pulmonary nodule. -Recommended CT imaging follow-up in 6-12 months, then again at 18-24 months. Subjective Patient reports: no new complaints, voiding w/o difficulty, afebrile Narrative: The patient was seen and evaluated at bedside this morning. Patient was afebrile and appears in no acute distress. Patient states that his pain in the left groin has significantly improved. The patient admits the site of the I&D is still mildly tender to palpation but the pain is tolerable. Patient denies any fever, headaches, chest pain, shortness of breath, difficult the breathing, any abdominal pain, constipation, diarrhea, blood in stools, difficulty urinating, blood in his urine, numbness and tingling, and any weaknesses. The patient has no other concerns at this time. Objective Vital Signs - Last 8 Hours Temp Pulse Resp BP Pulse Ox 12/03/17 10:25 98.5 F 87 16 121/74 94 12/03/17 08:26 95 12/03/17 07:48 16 95 12/03/17 07:19 98.8 F 81 16 131/84 93 12/03/17 04:28 97.6 F 80 18 117/68 96 Intake and Output 12/02/17 12/03/17 12/03/17 23:59 07:59 15:59 Intake Total 940 / 940 450 / 450 730 / 730 Output Total 2430 / 2430 1160 / 1160 Balance -1490 / -1490 -710 / -710 730 / 730 Intake: IV Fluids 250 / 250 450 / 450 250 / 250 Zosyn 3.375 GM In 0.9 % Sodium 200 / 200 Chloride (Mini-Bag +) 100 ML @ 25 mls/hr IVPB Q8H [facility] Rx#: [id number] Vancocin 1,000 MG In 0.9 % 250 / 250 250 / 250 250 / 250 Sodium Chloride 250 ML @ 167 mls/hr IVPB Q8H [facility] Rx#: [id number] Oral 690 / 690 0 / 0 480 / 480 Output: Urine 2430 / 2430 1160 / 1160 Other: Meal Breakfast Breakfast Percent of Meal Consumed 100% 100% # Voids 1 1 Weight 72.847 kg Blood Glucose* 372 286 337 Patient Weight 12/03/17 23:59 Weight 72.847 kg - General physical appearance well developed, well nourished, no distress - Eyes PERRL, normal ocular movement - ENT normal mucosa - Neck Neck exam: trachea midline - Respiratory normal expansion, normal respiratory effort, clear to percussion, clear to auscultation - Cardiovascular Cardiovascular exam: Present: RRR, no murmurs/rubs/gallops - Abdomen Abdomen: Present: bowel sounds present, soft, non tender. Absent: guarding, rebound, rigid Additional Comments: elliptical scar is present on the right upper quadrant. Patient confirms scar is from a previous abscess. - Incision Incision: Present: clean and dry (Dressing and packing was change last night on 12/02/2017.), intact, erythema, indurated (induration present on the patient's right side of the I&D site.). Absent: draining, purulent - Genitourinary other (Moderate swelling of the scrotal sac noticed with edema and tenderness) tender: left - Integumentary no rash - Neurologic CN 2-12 grossly intact - Psychiatric oriented to time, oriented to person, oriented to place - Labs 12/03/17 06:32 12/03/17 06:32 Diabetes panel 12/01/17 12/03/17 Range/Units 14:01 06:32 Sodium 135 L (136-145) mEq/L Potassium 3.9 (3.5-5.1) mEq/L Chloride 104 (98-107) mEq/L Carbon Dioxide 25 (23-29) mEq/L BUN 13 (6-20) mg/dL Creatinine 0.58 L (0.70-1.30) mg/dL Glucose 303 H (70-105) mg/dL Hemoglobin A1c 15.4 H ( - 5.6) % Calcium 8.9 (8.6-10.3) mg/dL Calcium panel 12/03/17 Range/Units 06:32 Calcium 8.9 (8.6-10.3) mg/dL Pituitary panel 12/03/17 Range/Units 06:32 Sodium 135 L (136-145) mEq/L Potassium 3.9 (3.5-5.1) mEq/L Chloride 104 (98-107) mEq/L Carbon Dioxide 25 (23-29) mEq/L BUN 13 (6-20) mg/dL Creatinine 0.58 L (0.70-1.30) mg/dL Glucose 303 H (70-105) mg/dL Calcium 8.9 (8.6-10.3) mg/dL Adrenal panel 12/03/17 Range/Units 06:32 Sodium 135 L (136-145) mEq/L Potassium 3.9 (3.5-5.1) mEq/L Chloride 104 (98-107) mEq/L Carbon Dioxide 25 (23-29) mEq/L BUN 13 (6-20) mg/dL Creatinine 0.58 L (0.70-1.30) mg/dL Glucose 303 H (70-105) mg/dL Calcium 8.9 (8.6-10.3) mg/dL Consult Discharge Plan - Plan Additional Instructions: Daily wound care. Wash with soap and water, pack with 1/4" plain packing, cover with 4x4 gauze and paper tape, change daily, ok to change outside dressing if saturated. [facility]errals: [facility] [Primary Care Provider[facility] - Adrienne Jean Baptiste, [employer] [Advanced Practice Nurse] - 12/11/17 3:40 pm Prescriptions: Adhesive Tape [Paper Tape] 1 each TP DAILY #1 tape Polyhexam Biguan/Gauze Bandage [Curity Amd 4"X4" Non-Woven] 4 each TP QDPC #200 sponge Polyhexam Biguan/Gauze Bandage [Curity Amd Packing Strips] 1 each TP QDPC 14 Days #1 bottle Swab [Cotton Swabs] 1 each MC QDPC 30 Days #30 swab <Maria Guadalupe Ramirez - Last Filed: 12/03/17 16:07> Date of Encounter: 12/03/17 - Assessment and Plan (1) Cellulitis of pubic region Current Visit: Yes Status: Acute (2) Phimosis Current Visit: Yes Status: Chronic (3) Candidiasis Current Visit: Yes Status: Acute Objective Vital Signs - Last 8 Hours Temp Pulse Resp BP Pulse Ox 12/03/17 15:32 98.8 F 78 16 141/90 94 12/03/17 10:25 98.5 F 87 16 121/74 94 12/03/17 08:26 95 Intake and Output 12/03/17 12/03/17 12/03/17 07:59 15:59 23:59 Intake Total 450 / 450 1660 / 1660 Output Total 1160 / 1160 650 / 650 Balance -710 / -710 1010 / 1010 Intake: IV Fluids 450 / 450 250 / 250 Zosyn 3.375 GM In 0.9 % Sodium 200 / 200 Chloride (Mini-Bag +) 100 ML @ 25 mls/hr IVPB Q8H [facility] Rx#: [id number] Vancocin 1,000 MG In 0.9 % 250 / 250 250 / 250 Sodium Chloride 250 ML @ 167 mls/hr IVPB Q8H [facility] Rx#: [id number] Oral 0 / 0 960 / 960 Free Water 450 / 450 Output: Urine 1160 / 1160 650 / 650 Other: Meal Lunch Percent of Meal Consumed 100% Stool Size Moderate Stool Consistency soft formed Stool Color Brown # Voids 1 # Bowel Movements 1 Weight 72.847 kg Blood Glucose* 286 247 Patient Weight 12/03/17 23:59 Weight 72.847 kg - Labs 12/03/17 06:32 12/03/17 06:32 Diabetes panel 12/03/17 Range/Units 06:32 Sodium 135 L (136-145) mEq/L Potassium 3.9 (3.5-5.1) mEq/L Chloride 104 (98-107) mEq/L Carbon Dioxide 25 (23-29) mEq/L BUN 13 (6-20) mg/dL Creatinine 0.58 L (0.70-1.30) mg/dL Glucose 303 H (70-105) mg/dL Calcium 8.9 (8.6-10.3) mg/dL Calcium panel 12/03/17 Range/Units 06:32 Calcium 8.9 (8.6-10.3) mg/dL Pituitary panel 12/03/17 Range/Units 06:32 Sodium 135 L (136-145) mEq/L Potassium 3.9 (3.5-5.1) mEq/L Chloride 104 (98-107) mEq/L Carbon Dioxide 25 (23-29) mEq/L BUN 13 (6-20) mg/dL Creatinine 0.58 L (0.70-1.30) mg/dL Glucose 303 H (70-105) mg/dL Calcium 8.9 (8.6-10.3) mg/dL Adrenal panel 12/03/17 Range/Units 06:32 Sodium 135 L (136-145) mEq/L Potassium 3.9 (3.5-5.1) mEq/L Chloride 104 (98-107) mEq/L Carbon Dioxide 25 (23-29) mEq/L BUN 13 (6-20) mg/dL Creatinine 0.58 L (0.70-1.30) mg/dL Glucose 303 H (70-105) mg/dL Calcium 8.9 (8.6-10.3) mg/dL - Attending Attestation please cancel this note, the BULL DRIVER has already done one, this was done in error
[2017-12-03] MEDS: *HR* HYDROcodone/Acet 5/325 mg TABLET PO PRN ×2 (13:48→20:14)
--- NOTE | 2017-12-03 14:11 | General Surgery Progress Note ---
Date of Encounter: 12/03/17 Time of Encounter: 13:00 - Assessment and Plan (1) Abscess of groin, left Current Visit: Yes Status: Acute Patient is 1 day s/p I&D and packing of the left groin abscess. Surgical incision is clean, dry and intact. Of note, patient reported that the bedside RN changed the dressing and packing last night on 12/02/17 at 2300. The bedside RN used 1/2 inch plain gauze. Orders stated that it should 1/4 inch. Wound bed was pink and moist with minimal drainage. No need to replace packing until prior to discharge. Lastly, the patient report that his fiance is in nursing school and will change the packing at home. Patient was informed that the fianc will have to change the packing under observation by the RN prior to discharge. -Continue pain control -Antibiotics with Zosyn and vancomycin -IVF -Plan for possible discharge tomorrow per medicine team. Patient has a follow- up appointment with the surgery outpatient clinic on December 11 with Adrienne Jean Baptiste CNP. Wound care instructions are given. Surgery has provided prescriptions for supplies and a consult to social work for possible home health has been placed. Surgery will sign off at this time. Thank you for allowing surgery to be a part of Mr. Muñiz's care. (2) Scrotal edema Current Visit: Yes Status: Acute CT of abdomen and pelvis on 11/30/2017 suggests cellulitis involving the mons pubis, left greater than right. -Keep scrotum elevated -Continue symptomatic and supportive care -Urology is on board Subjective Patient reports: no new complaints, feels better, still having pain, pain is less, voiding w/o difficulty, flatus, bowel movement, afebrile Objective Vital Signs - Last 8 Hours Temp Pulse Resp BP Pulse Ox 12/03/17 10:25 98.5 F 87 16 121/74 94 12/03/17 08:26 95 12/03/17 07:48 16 95 12/03/17 07:19 98.8 F 81 16 131/84 93 Intake and Output 12/02/17 12/03/17 12/03/17 23:59 07:59 15:59 Intake Total 940 / 940 450 / 450 1210 / 1210 Output Total 2430 / 2430 1160 / 1160 Balance -1490 / -1490 -710 / -710 1210 / 1210 Intake: IV Fluids 250 / 250 450 / 450 250 / 250 Zosyn 3.375 GM In 0.9 % Sodium 200 / 200 Chloride (Mini-Bag +) 100 ML @ 25 mls/hr IVPB Q8H [facility] Rx#: [id number] Vancocin 1,000 MG In 0.9 % 250 / 250 250 / 250 250 / 250 Sodium Chloride 250 ML @ 167 mls/hr IVPB Q8H [facility] Rx#: [id number] Oral 690 / 690 0 / 0 960 / 960 Output: Urine 2430 / 2430 1160 / 1160 Other: Meal Breakfast Lunch Percent of Meal Consumed 100% 100% # Voids 1 1 Weight 72.847 kg Blood Glucose* 372 286 337 Patient Weight 12/03/17 23:59 Weight 72.847 kg - General physical appearance well nourished, no distress - Eyes normal ocular movement - ENT atraumatic, normocephalic - Neck Neck exam: trachea midline, no venous distension - Respiratory normal expansion, normal respiratory effort, clear to auscultation - Cardiovascular Cardiovascular exam: Present: RRR - Abdomen Abdomen: Present: bowel sounds present, soft, non tender Hernia: none - Incision Incision: Present: open (Wound beds with granulation tissue minimal amount of drainage noted. Surrounding tissue noted to have induration however patient states that is greatly improved.) - Genitourinary other (Testicular/scrotal swelling noted.) - Integumentary no rash - Neurologic normal coordination, normal sensation - Musculoskeletal normal gait, normal posture - Psychiatric oriented to time, oriented to person, oriented to place, speech is normal, memory intact - Labs 12/03/17 06:32 12/03/17 06:32 Diabetes panel 12/03/17 Range/Units 06:32 Sodium 135 L (136-145) mEq/L Potassium 3.9 (3.5-5.1) mEq/L Chloride 104 (98-107) mEq/L Carbon Dioxide 25 (23-29) mEq/L BUN 13 (6-20) mg/dL Creatinine 0.58 L (0.70-1.30) mg/dL Glucose 303 H (70-105) mg/dL Calcium 8.9 (8.6-10.3) mg/dL Calcium panel 12/03/17 Range/Units 06:32 Calcium 8.9 (8.6-10.3) mg/dL Pituitary panel 12/03/17 Range/Units 06:32 Sodium 135 L (136-145) mEq/L Potassium 3.9 (3.5-5.1) mEq/L Chloride 104 (98-107) mEq/L Carbon Dioxide 25 (23-29) mEq/L BUN 13 (6-20) mg/dL Creatinine 0.58 L (0.70-1.30) mg/dL Glucose 303 H (70-105) mg/dL Calcium 8.9 (8.6-10.3) mg/dL Adrenal panel 12/03/17 Range/Units 06:32 Sodium 135 L (136-145) mEq/L Potassium 3.9 (3.5-5.1) mEq/L Chloride 104 (98-107) mEq/L Carbon Dioxide 25 (23-29) mEq/L BUN 13 (6-20) mg/dL Creatinine 0.58 L (0.70-1.30) mg/dL Glucose 303 H (70-105) mg/dL Calcium 8.9 (8.6-10.3) mg/dL Consult Discharge Plan - Plan Additional Instructions: Daily wound care. Wash with soap and water, pack with 1/4" plain packing, cover with 4x4 gauze and paper tape, change daily, ok to change outside dressing if saturated. Referrals: Adrienne Jean Baptiste [employer] [Advanced Practice Nurse] - 12/11/17 3:40 pm [facility] Care Provider[facility] - Prescriptions: Adhesive Tape [Paper Tape] 1 each TP DAILY #1 tape Polyhexam Biguan/Gauze Bandage [Curity Amd 4"X4" Non-Woven] 4 each TP QDPC #200 sponge Polyhexam Biguan/Gauze Bandage [Curity Amd Packing Strips] 1 each TP QDPC 14 Days #1 bottle Swab [Cotton Swabs] 1 each QDPC 30 Days #30 swab
--- NOTE | 2017-12-03 16:15 | Internal Med Progress Note ---
Date of Encounter: 12/03/17 Time of Encounter: 10:40 - Assessment and plan (1) Abscess of groin, left Current Visit: Yes Status: Acute Assessment and plan: Status post I & D continue empirical antibiotic Zosyn, vancomycin and antifungal fluconazole so far blood cultures no growth Wound cx - still P (2) Cellulitis of pubic region Current Visit: Yes Status: Acute Assessment and plan: continue IV Vancomycin, and IV Zosyn Started on topical anti fungal cream pain control with PRN IV Fentanyl and PO Percocet Keep scrotum elevated continue symptomatic and supportive care urology evaluated the patient- recommended outpatient follow-up (3) DM (diabetes mellitus) Current Visit: Yes Status: Chronic Assessment and plan: Fairly controlled still showing fluctuations continue insulin sliding scale plus Levemir HbA1C came back as 15.4 Qualifiers: Diabetes mellitus type: type 2 Diabetes mellitus meterman insulin use: with meterman use Diabetes mellitus complication status: with unspecified complications Qualified Code(s): E11.8 - Type 2 diabetes mellitus with unspecified complications; Z79.4 - correction (current) use of insulin; Z79.4 - ocean transportation intermediary (current) use of insulin; Z79.4 - ocean transportation intermediary (current) use of insulin; Z79.4 - ocean transportation intermediary (current) use of insulin (4) Tobacco abuse Current Visit: Yes Status: Acute Assessment and plan: Counseled to quit smoking placed on nicotine patch (5) Anxiety and depression Current Visit: Yes Status: Chronic Assessment and plan: continue home meds; - Subjective Interval history: Mr. Muñiz is a 47-year-old gentlemen with a known past medical history of diabetes type II and depression who admitted here with left groin abscess and pubic cellulites. Patient was admitted in the hospital and started him on empirical antibiotic Zosyn, vancomycin and fluconazole. Patient was evaluated by surgery who did I & D of left groin abscess. Patient was also seen by urologist and recommended to continue topical anti fungal cream and & antibiotic. His groin pain better today. His scrotal swelling also better. He denied any chest pain/shortness of breath. No fever - Constitutional Vitals: Temp Pulse Resp BP Pulse Ox 98.8 F 78 16 141/90 94 12/03/17 15:32 12/03/17 15:32 12/03/17 15:32 03/12/18 15:32 12/03/17 15:32 General appearance: Present: A&O X 3, answers questions appropriately - Head Head exam: Present: atraumatic, normal inspection - Neck Neck exam general surgery: Present: supple - Respiratory Respiratory exam: Present: decreased breath sounds. Absent: rales, respiratory distress, rhonchi, wheezes - Cardiovascular Cardiovascular exam: Present: RRR, +S1, +S2. Absent: tachycardia - GI/Abdominal GI/Abdominal exam: Present: normal bowel sounds, soft. Absent: rebound, rigid, tenderness - exam: Present: scrotal swelling (Improving) External exam: Present: erythema (Improving) - Extremities Exam Extremities exam: Absent: calf tenderness, pedal edema, tenderness - Back Exam Back exam: Absent: CVA tenderness (L), CVA tenderness (R) - Neurological Exam Neurological exam: Present: alert, oriented X3 - Psychiatric Psychiatric exam: Present: normal affect, normal mood Internal Medicine: Result - Labs CBC & Chem 7: 12/03/17 06:32 12/03/17 06:32 Labs: Short CBC 12/03/17 Range/Units 06:32 WBC 14.1 H (4.3-11.1) K/mcL Hgb 13.8 (12.9-16.9) g/dL Hct 39.0 (37.5-50.1) % Plt Count 275 (140-400) K/mcL Neutrophils # 9.3 H (1.6-8.9) K/mcL BMP 12/03/17 06:32 Sodium 135 L Potassium 3.9 Chloride 104 Carbon Dioxide 25 BUN 13 Creatinine 0.58 L Glucose 303 H Calcium 8.9 Consult Discharge Plan - Plan Additional Instructions: Daily wound care. Wash with soap and water, pack with 1/4" plain packing, cover with 4x4 gauze and paper tape, change daily, ok to change outside dressing if saturated. Referrals: Adrienne Jean Baptiste CNP [Advanced Practice Nurse] - 12/11/17 3:40 pm [facility] [Primary Care Provider[facility] - Prescriptions: Adhesive Tape [Paper Tape] 1 each TP DAILY #1 tape Polyhexam Biguan/Gauze Bandage [Curity Amd 4"X4" Non-Woven] 4 each TP QDPC #200 sponge Polyhexam Biguan/Gauze Bandage [Curity Amd Packing Strips] 1 each TP QDPC 14 Days #1 bottle Swab [Cotton Swabs] 1 each MC QDPC 30 Days #30 swab
[2017-12-03] MEDS: Triamcinolone Acet 0.1% CRM 15 GM TUBE TP SCH ×2 (16:32→21:48)
[2017-12-03] MEDS: Clotrimazole 1% CRM 15 GM TUBE TP SCH ×2 (16:33→21:48)
--- NOTE | 2017-12-03 18:39 | Electrocardiograph Report ---
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
[2017-12-03] MEDS: traZODone 50 MG TABLET PO SCH (20:15)
[2017-12-04] MEDS: Piperacillin/Tazobactam 3.375 GM in 0.9 % Sodium Chloride Mini Bag 100 ML IVPB SCH (02:53)
[2017-12-04 05:13] LABS: Basophils # 0.1 K/mcL (0.0-0.2); Basophils % 0.8 %; Eosinophils # 0.6 K/mcL (0.0-0.6); Eosinophils % 4.5 %; Hematocrit 40.1 % (37.5-50.1); Hemoglobin 13.8 g/dL (12.9-16.9); Immature Granulocytes % 2.6 % (0-4); Lymphocytes # 4.8 K/mcL (0.6-4.6); Lymphocytes % 36.2 %; Mean Corpuscular HGB Conc 34.4 g/dL (31.6-35.5); Mean Corpuscular Hemoglobin 30.6 pg (28.0-33.3); Mean Corpuscular Volume 88.9 fL (83.0-100.0); Monocytes # 0.7 K/mcL (0.0-1.3); Monocytes % 4.9 %; Neutrophils # 6.8 K/mcL (1.6-8.9); Platelet Count 316 K/mcL (140-400); Red Blood Count 4.51 M/mcL (4.19-5.50); Red Cell Distribution Width 12.5 % (11.5-14.5)
[2017-12-04 05:29] LABS: BUN/Creatinine Ratio 30 (6-26); Blood Urea Nitrogen 16 mg/dL (6-20); Calcium 8.9 mg/dL (8.6-10.3); Carbon Dioxide 24 mEq/L (23-29); Chloride 105 mEq/L (98-107); Glucose 295 mg/dL (70-105); Osmolality,Calculated 292 (280-300); Potassium 4.1 mEq/L (3.5-5.1); Sodium 135 mEq/L (136-145); eGFR For African Americans > 60 (> 60); eGFR For Non-African Americans > 60 (> 60)
[2017-12-04] MEDS: *HR* HYDROcodone/Acet 5/325 mg TABLET PO PRN (05:45)
[2017-12-04] MEDS: *HR* Heparin 5,000 UNIT/ML VIAL SQ SCH (05:45)
[2017-12-04] MEDS: Gabapentin 300 MG CAPSULE PO SCH ×2 (08:21→14:37)
[2017-12-04] MEDS: Nicotine 21 MG PATCH.TD24 TD SCH (08:22)
[2017-12-04] MEDS: Insulin LISPRO 300 UNITS/3 ML VIAL SQ SCH ×4 (08:23→11:36)
[2017-12-04] MEDS: Insulin DETEMIR 100 UNIT/ML X5UNITS SQ SCH (08:25)
[2017-12-04] MEDS: Triamcinolone Acet 0.1% CRM 15 GM TUBE TP SCH (08:35)
[2017-12-04] MEDS: Clotrimazole 1% CRM 15 GM TUBE TP SCH (08:36)
[2017-12-04] MEDS ORDERED: Fluconazole 100 MG TABLET PO SCH (09:00)
--- NOTE | 2017-12-04 09:47 | Discharge Summary ---
- NOTES TO OUTPATIENT PROVIDER Notes to Outpatient Provider: Wound packing and dressing daily as per surgery recommendations. Your blood sugars are so high with HbA1C 15.4, so Increased Lantus to 35 Units and Started you on Humalog insulin 10 U with each meal TID. Cont taking antibiotic and use topical cream as directed. f/u with surgery and Urologist in 1 week Orders not resulted at time of discharge: Pending orders 12/02/17 18:53 Culture,Anaerobic [RM] Routine Culture,Tissue (Biopsy) [RM] Routine 12/05/17 04:00 BMP [Basic Metabolic Panel] AM 0400 12/06/17 04:00 BMP [Basic Metabolic Panel] AM 0400 Date of Encounter: 12/04/17 Time of Encounter: 09:45 - Discharge Diagnosis (1) Abscess of groin, left Priority: Primary Status: Acute (2) Cellulitis of pubic region Priority: Primary Status: Acute (3) DM (diabetes mellitus) Priority: Secondary Status: Chronic Qualifiers: Diabetes mellitus type: type 2 Diabetes mellitus fci insulin use: with adjunct faculty for medical terminology use Diabetes mellitus complication status: with unspecified complications Qualified Code(s): E11.8 - Type 2 diabetes mellitus with unspecified complications; Z79.4 - extermination inspector (current) use of insulin; Z79.4 - [facility] (current) use of insulin; Z79.4 - extermination inspector (current) use of insulin; Z79.4 - [facility] (current) use of insulin (4) Tobacco abuse Priority: Secondary Status: Acute (5) Anxiety and depression Priority: Secondary Status: Chronic Hospital course: Mr. Muñiz is a 47-year-old gentlemen with a known past medical history of diabetes type II and depression who admitted here with left groin abscess and pubic cellulites. Patient was admitted in the hospital and started him on empirical antibiotic Zosyn, vancomycin and fluconazole. Patient was evaluated by surgery , did I & D of left groin abscess on 12/02/17. Patient was also seen by urologist and recommended to continue topical anti fungal cream and & antibiotic. His wound cx growing MRSA so changed his abx to Bactrim for 7 more days ( total 10 days course ) and continue Fluconazole 7 more days. His BS are severely elevated with HA1C @ 15.4. So recomend to use regular Insulin too. All the instructions given to pt. - Time Spent with Patient Total time spent providing and/or coordinating discharge services: - Discharge Medications Prescriptions: Adhesive Tape [Paper Tape] 1 each TP DAILY #1 tape Clotrimazole 1% CRM [Lotrimin 1%] 1 appl TP BID #2 tube Fluconazole [Diflucan] 200 mg PO DAILY #7 tablet Insulin LISPRO [HumaLOG] 10 units SQ TIDWM #3 vial Nicotine Patch [Nicoderm] 21 mg TD DAILY #30 patch.td24 Oxycodone HCl/Acetaminophen [Percocet 10-325 mg Tablet] 1 each PO Q6H PRN 5 Days #15 tablet PRN Reason: Pain Polyethylene Glycol 3350 [MiraLAX] 17 gm PO DAILY PRN #30 powd.pack PRN Reason: Constipation Polyhexam Biguan/Gauze Bandage [Curity Amd 4"X4" Non-Woven] 4 each TP QDPC #200 sponge Polyhexam Biguan/Gauze Bandage [Curity Amd Packing Strips] 1 each TP QDPC 14 Days #1 bottle Sulfamethoxazole/Trimeth DS [Bactrim DS] 1 each PO BID #14 tablet Swab [Cotton Swabs] 1 each MC QDPC 30 Days #30 swab Triamcinolone Acet 0.1% CRM [Kenalog] 1 appl TP BID #2 tube Home Medications: Metformin HCl [Fortamet] 1,000 mg PO DAILY 05/23/17 [History] Sertraline [Zoloft] 100 mg PO BID 05/23/17 [History] glipiZIDE [Glipizide] 10 mg PO BID 05/23/17 [History] Acetaminophen/Aspirin/Caffeine [Excedrin EX] 1 each PO Q6H PRN 11/30/17 [History ] Budesonide/Formoterol 80/4.5 [Symbicort 80/4.5] 2 puff IH BID 11/30/17 [History ] Docusate [Colace] 100 mg PO BID 11/30/17 [History] Gabapentin [Neurontin] 300 mg PO TID 11/30/17 [History] Menthol/Camphor [Icy Hot Advanced Relief Cream] 1 appl TP AD 11/30/17 [History] Sennosides [Senna] 17.2 mg PO DAILY 11/30/17 [History] Sildenafil Citrate [Viagra] 50 mg PO AD PRN 11/30/17 [History] traZODone [TraZODone] 50 mg PO HS 11/30/17 [History] Adhesive Tape [Paper Tape] 1 each TP DAILY #1 tape 12/03/17 [Rx] Polyhexam Biguan/Gauze Bandage [Curity Amd 4"X4" Non-Woven] 4 each TP QDPC #200 sponge 12/03/17 [Rx] Polyhexam Biguan/Gauze Bandage [Curity Amd Packing Strips] 1 each TP QDPC 14 Days #1 bottle 12/03/17 [Rx] Swab [Cotton Swabs] 1 each QDPC 30 Days #30 swab 12/03/17 [Rx] Clotrimazole 1% CRM [Lotrimin 1%] 1 appl TP BID #2 tube 12/04/17 [Rx] Fluconazole [Diflucan] 200 mg PO DAILY #7 tablet 12/04/17 [Rx] Insulin Glargine [Lantus] 35 unit SQ QPM #0 12/04/17 [Rx] Insulin LISPRO [HumaLOG] 10 units SQ TIDWM #3 vial 12/04/17 [Rx] Nicotine Patch [Nicoderm] 21 mg TD DAILY #30 patch.td24 12/04/17 [Rx] Oxycodone HCl/Acetaminophen [Percocet 10-325 mg Tablet] 1 each PO Q6H PRN 5 Days #15 tablet 12/04/17 [Rx] Polyethylene Glycol 3350 [MiraLAX] 17 gm PO DAILY PRN #30 powd.pack 12/04/17 [Rx ] Sulfamethoxazole/Trimeth DS [Bactrim DS] 1 each PO BID #14 tablet 12/04/17 [Rx] Triamcinolone Acet 0.1% CRM [Kenalog] 1 appl TP BID #2 tube 12/04/17 [Rx] Allergies/Adverse Reactions: 3 Allergy/AdvReac Type Severity Reaction Status Date / Time No Known Allergies Allergy Verified 05/23/17 11:12 Date of admission: 11/30/17 19:00 [facility] care physician: [facility] Consults: 12/01/17 09:16 Consult to Surgery [CONS] Routine Consulting Provider: Surgery [facility] Reason for Consult: Left pubic phlegmon Call Completed: Yes 12/01/17 13:33 Consult to Urology [CONS] Routine Consulting Provider: Urology Jill Reason for Consult: Uncircumcised penis, phimosis, exudate Call Completed: Yes 12/03/17 11:31 Consult to Satellite Technician [CONS] Routine Reason for SW Consult: Dressing and wound care needs on discharge - Constitutional Vitals: Temp Pulse Resp BP Pulse Ox 97.9 F 76 17 128/84 93 12/04/17 07:15 12/04/17 07:15 12/04/17 07:15 12/04/17 07:15 12/04/17 07:15 General appearance: Present: A&O X 3, answers questions appropriately - Head Head exam: Present: atraumatic, normal inspection - Respiratory Respiratory exam: Present: decreased breath sounds. Absent: rales, respiratory distress, rhonchi, wheezes - Cardiovascular Cardiovascular exam: Present: RRR, +S1, +S2. Absent: tachycardia - GI/Abdominal GI/Abdominal exam: Present: normal bowel sounds, soft. Absent: rebound, rigid, tenderness - Additional comments: Improved swelling and erythema of scrotum No active discharge from Left groin abscess.. wound packed. - Extremities Exam Extremities exam: Absent: calf tenderness, pedal edema, tenderness - Back Exam Back exam: Absent: CVA tenderness (L), CVA tenderness (R) - Patient Status Disposition: Home, Self-Care Condition: Good Overall status at discharge: patient is back to baseline - Discharge Instructions Follow Up With: Zacarias Vang MD [Partnered Physician] - (will give patient a call for an appt. per urology office...) Adrienne Jean Baptiste CNP [Advanced Practice Nurse] - 12/11/17 3:40 pm [facility]PC[facility] [Primary Care Provider] - Additional Instructions: Daily wound care. Wash with soap and water, pack with 1/4" plain packing, cover with 4x4 gauze and paper tape, change daily, ok to change outside dressing if saturated. - Diet and Activity Activity: increase activity as tolerated Diet: diabetic diet, low salt diet - VTE Documentation of Mechanical Device: Intermittent pneumatic compression device
[2017-12-04] MEDS ORDERED: Sulfamethoxazole/Trimeth DS 1 EACH TABLET PO SCH (10:00)
[2017-12-04] MEDS: Budesonide/Formoterol 80/4.5 MDI IH SCH (10:36)
[2017-12-04 15:02] VITALS: BP 144/81
[2017-12-04] MEDS ORDERED: Aminoglycoside Consult 1 EACH MC ONE (16:44)
== END 2017-12-04 16:45 | disposition home or self-care (01) | DRG 854 ==
LOC: 2ANU 15:41 → EMEROO 15:41 → SUATTDRO 19:00 → 2ANU 20:18
PROVIDERS: ADMIT Internal Medicine; ATTEND Family Medicine

== ENCOUNTER 2019-04-04 15:38 | Inpatient (IN) ==
[2019-04-04] MEDS ORDERED: Isovue-370 500 ML BOTTLE IVP ONE (15:55)
[2019-04-04] MEDS ORDERED: 0.9 % Sodium Chloride 1,000 ML IVC ONE (15:58)
[2019-04-04] MEDS ORDERED: *HR* FentaNYL (PF) 100 MCG/2 ML VIAL IVP ONE (15:58)
[2019-04-04] MEDS ORDERED: Ondansetron 4 MG/2 ML VIAL IVP ONE (15:58)
[2019-04-04 16:15] LABS: Basophils % 0.2 %; Eosinophils # 0.4 K/mcL (0.0-0.6); Eosinophils % 2.2 %; Hematocrit 41.6 % (37.5-50.1); Immature Granulocytes % 0.4 % (0-4); Lymphocytes # 2.8 K/mcL (0.6-4.6); Lymphocytes % 16.8 %; Mean Corpuscular HGB Conc 33.7 g/dL (31.6-35.5); Mean Corpuscular Hemoglobin 29.5 pg (28.0-33.3); Mean Corpuscular Volume 87.6 fL (83.0-100.0); Mean Platelet Volume 9.2 fL (9.4-12.4); Neutrophils # 12.3 K/mcL (1.6-8.9); Platelet Count 291 K/mcL (140-400); Red Blood Count 4.75 M/mcL (4.19-5.50); Red Cell Distribution Width 12.9 % (11.5-14.5); Segmented Neutrophils % 74.4 %; White Blood Count 16.6 K/mcL (4.3-11.1)
[2019-04-04 16:33] LABS: INR 1.2; Prothrombin Time 13.7 Seconds (9.4-12.1)
[2019-04-04] MEDS ORDERED: Clindamycin 600 MG/50 ML 600 MG/50 ML IV.SOLN IVPB STA (16:35)
[2019-04-04 16:57] LABS: BUN/Creatinine Ratio 21 (6-26); Blood Urea Nitrogen 17 mg/dL (6-20); Calcium 8.8 mg/dL (8.6-10.3); Carbon Dioxide 27 mEq/L (23-29); Chloride 99 mEq/L (98-107); Glucose 535 mg/dL (70-105); Osmolality,Calculated 302 (280-300); Sodium 133 mEq/L (136-145); eGFR For African Americans > 60 (> 60); eGFR For Non-African Americans > 60 (> 60)
[2019-04-04] MEDS ORDERED: Morphine Sulfate 2 MG/ML SYRINGE IVP ONE (17:54)
[2019-04-04] MEDS ORDERED: Dextrose Gel 15 GM/37.5 ML TUBE PO PRN ×2 (23:54)
[2019-04-04] MEDS ORDERED: *HR* Dextrose 50 % in Water (Syg) 50 ML SYRINGE IVP PRN (23:54)
[2019-04-04] MEDS ORDERED: D5% in Water 1,000 ML IVC PRN (23:54)
[2019-04-04] MEDS ORDERED: Acetaminophen 325 MG TABLET PO PRN (23:54)
[2019-04-05] MEDS: Insulin LISPRO 300 UNITS/3 ML VIAL SQ SCH ×4 (00:17→17:34)
[2019-04-05] MEDS ORDERED: Naloxone 0.4 MG/ML INJ IVP PRN ×2 (02:09→16:20)
[2019-04-05] MEDS ORDERED: 0.9 % Sodium Chloride 1,000 ML IVC SCH ×2 (02:15→16:20)
[2019-04-05] MEDS ORDERED: Nicotine 21 MG PATCH.TD24 TD PRN ×2 (02:22→16:20)
[2019-04-05 04:38] LABS: Hematocrit 40.6 % (37.5-50.1); Hemoglobin 13.5 g/dL (12.9-16.9); Mean Corpuscular HGB Conc 33.3 g/dL (31.6-35.5); Mean Corpuscular Hemoglobin 29.7 pg (28.0-33.3); Mean Corpuscular Volume 89.4 fL (83.0-100.0); Platelet Count 287 K/mcL (140-400); Red Blood Count 4.54 M/mcL (4.19-5.50); Red Cell Distribution Width 12.9 % (11.5-14.5); White Blood Count 16.1 K/mcL (4.3-11.1)
[2019-04-05 04:45] LABS: INR 1.2; Prothrombin Time 13.5 Seconds (9.4-12.1)
[2019-04-05 04:56] LABS: BUN/Creatinine Ratio 18 (6-26); Blood Urea Nitrogen 12 mg/dL (6-20); Calcium 8.7 mg/dL (8.6-10.3); Carbon Dioxide 28 mEq/L (23-29); Chloride 102 mEq/L (98-107); Glucose 183 mg/dL (70-105); Osmolality,Calculated 288 (280-300); Potassium 3.6 mEq/L (3.5-5.1); Sodium 137 mEq/L (136-145); eGFR For African Americans > 60 (> 60); eGFR For Non-African Americans > 60 (> 60)
[2019-04-05] MEDS ORDERED: Clindamycin 600 MG/50 ML 600 MG/50 ML IV.SOLN IVPB SCH (08:00)
[2019-04-05] MEDS ORDERED: Piperacillin/Tazobactam 3.375 GM in 0.9 % Sodium Chloride Mini Bag 100 ML IVPB SCH (08:09)
[2019-04-05] MEDS ORDERED: Insulin DETEMIR 100 UNIT/ML X5UNITS SQ SCH (09:00)
[2019-04-05] MEDS: Ringers Solution, Lactated 1,000 ML IVC SCH ×2 (13:00→14:33)
[2019-04-05] MEDS ORDERED: Albuterol 2.5 MG/3 ML NEBULIZER ONE (13:11)
[2019-04-05] MEDS ORDERED: Lidocaine -MPF 2% 2 ML VIAL ONE (13:12)
[2019-04-05] MEDS ORDERED: *HR* Propofol 200 MG/20 ML VIAL IVP ONE (13:12)
[2019-04-05] MEDS ORDERED: *HR* FentaNYL (PF) 100 MCG/2 ML VIAL ONE ×2 (13:12→14:43)
[2019-04-05] MEDS ORDERED: *HR* Midazolam HCl 2 MG/2 ML VIAL ONE (13:12)
[2019-04-05] MEDS ORDERED: Albuterol 2.5 MG/3 ML NEBULIZER IH ONE ×2 (13:14→13:17)
[2019-04-05] MEDS ORDERED: *HR* Succinylcholine 200 MG/10 ML VIAL IVP ONE (13:15)
[2019-04-05] MEDS ORDERED: Ondansetron 4 MG/2 ML VIAL ONE (13:16)
[2019-04-05] MEDS ORDERED: Lidocaine -MPF 4% 5 ML AMPUL ONE (13:16)
[2019-04-05] MEDS ORDERED: Dexamethasone 4 MG/ML VIAL ONE (13:16)
[2019-04-05] MEDS ORDERED: *HR* HYDROmorphone (PF) 1 MG/ML SYRINGE IVP PRN (13:17)
[2019-04-05] MEDS ORDERED: Ondansetron 4 MG/2 ML VIAL IVP ONE (13:17)
[2019-04-05] MEDS ORDERED: *HR* OxyCODONE Immed Rel 5 MG TABLET PO PRN (13:17)
[2019-04-05] MEDS ORDERED: *HR* Promethazine 25 MG/ML VIAL IVP PRN (13:17)
[2019-04-05] MEDS ORDERED: *HR* Labetalol 20 MG/4 ML SYRINGE IVP PRN (13:17)
[2019-04-05] MEDS ORDERED: *HR* HYDROMORPHONE 2 MG/ML VIAL ONE (14:47)
[2019-04-05] MEDS ORDERED: Acetaminophen 325 MG TABLET PO PRN (16:20)
[2019-04-05] MEDS ORDERED: Dextrose Gel 15 GM/37.5 ML TUBE PO PRN ×2 (16:20)
[2019-04-05] MEDS ORDERED: D5% in Water 1,000 ML IVC PRN (16:20)
[2019-04-05] MEDS ORDERED: *HR* Dextrose 50 % in Water (Syg) 50 ML SYRINGE IVP PRN (16:20)
[2019-04-05] MEDS: Piperacillin/Tazobactam 3.375 GM in 0.9 % Sodium Chloride Mini Bag 100 ML IVPB SCH (17:35)
[2019-04-05] MEDS ORDERED: Insulin LISPRO 300 UNITS/3 ML VIAL SQ SCH ×2 (18:00→21:00)
[2019-04-05] MEDS: Insulin DETEMIR 100 UNIT/ML X5UNITS SQ SCH (21:05)
[2019-04-06] MEDS: Piperacillin/Tazobactam 3.375 GM in 0.9 % Sodium Chloride Mini Bag 100 ML IVPB SCH ×3 (01:37→16:28)
[2019-04-06 06:23] LABS: Basophils % 0.2 %; Eosinophils % 0.1 %; Hematocrit 42.4 % (37.5-50.1); Immature Granulocytes % 0.5 % (0-4); Lymphocytes # 1.7 K/mcL (0.6-4.6); Lymphocytes % 9.4 %; Mean Platelet Volume 9.4 fL (9.4-12.4); Monocytes # 0.6 K/mcL (0.0-1.3); Monocytes % 3.4 %; Platelet Count 303 K/mcL (140-400); Red Blood Count 4.82 M/mcL (4.19-5.50); Red Cell Distribution Width 12.5 % (11.5-14.5); Segmented Neutrophils % 86.4 %; White Blood Count 17.5 K/mcL (4.3-11.1)
[2019-04-06 06:32] LABS: Neutrophils # 15.1 K/mcL (1.6-8.9)
[2019-04-06 06:43] LABS: BUN/Creatinine Ratio 25 (6-26); Blood Urea Nitrogen 18 mg/dL (6-20); Calcium 8.7 mg/dL (8.6-10.3); Carbon Dioxide 26 mEq/L (23-29); Chloride 99 mEq/L (98-107); Glucose 343 mg/dL (70-105); Osmolality,Calculated 291 (280-300); Potassium 4.1 mEq/L (3.5-5.1); Sodium 133 mEq/L (136-145); eGFR For African Americans > 60 (> 60); eGFR For Non-African Americans > 60 (> 60)
[2019-04-06] MEDS: Insulin DETEMIR 100 UNIT/ML X5UNITS SQ SCH ×2 (08:50→20:13)
[2019-04-06] MEDS: Insulin LISPRO 300 UNITS/3 ML VIAL SQ SCH ×4 (08:51→20:27)
[2019-04-06] MEDS ORDERED: Dextrose Gel 15 GM/37.5 ML TUBE PO PRN ×2 (14:20)
[2019-04-06] MEDS ORDERED: *HR* Dextrose 50 % in Water (Syg) 50 ML SYRINGE IVP PRN (14:20)
[2019-04-06] MEDS ORDERED: D5% in Water 1,000 ML IVC PRN (14:20)
[2019-04-06] MEDS: *HR* Heparin 5,000 UNIT/ML VIAL SQ SCH (18:13)
[2019-04-07] MEDS: Piperacillin/Tazobactam 3.375 GM in 0.9 % Sodium Chloride Mini Bag 100 ML IVPB SCH ×3 (00:47→17:31)
[2019-04-07] MEDS: *HR* Heparin 5,000 UNIT/ML VIAL SQ SCH ×2 (05:00→17:30)
[2019-04-07 07:06] LABS: Basophils % 0.2 %; Eosinophils # 0.4 K/mcL (0.0-0.6); Eosinophils % 3.5 %; Hematocrit 40.3 % (37.5-50.1); Hemoglobin 13.5 g/dL (12.9-16.9); Immature Granulocytes % 0.4 % (0-4); Lymphocytes # 4.5 K/mcL (0.6-4.6); Lymphocytes % 40.8 %; Mean Corpuscular HGB Conc 33.5 g/dL (31.6-35.5); Mean Corpuscular Hemoglobin 29.8 pg (28.0-33.3); Mean Platelet Volume 8.8 fL (9.4-12.4); Monocytes # 0.6 K/mcL (0.0-1.3); Neutrophils # 5.5 K/mcL (1.6-8.9); Platelet Count 291 K/mcL (140-400); Red Blood Count 4.53 M/mcL (4.19-5.50); Red Cell Distribution Width 12.9 % (11.5-14.5); Segmented Neutrophils % 50.1 %
[2019-04-07 07:29] LABS: BUN/Creatinine Ratio 22 (6-26); Blood Urea Nitrogen 13 mg/dL (6-20); Calcium 8.6 mg/dL (8.6-10.3); Carbon Dioxide 30 mEq/L (23-29); Chloride 100 mEq/L (98-107); Glucose 145 mg/dL (70-105); Osmolality,Calculated 285 (280-300); Potassium 3.8 mEq/L (3.5-5.1); Sodium 136 mEq/L (136-145); eGFR For African Americans > 60 (> 60); eGFR For Non-African Americans > 60 (> 60)
[2019-04-07] MEDS: Insulin DETEMIR 100 UNIT/ML X5UNITS SQ SCH ×2 (07:53→21:21)
[2019-04-07] MEDS: Insulin LISPRO 300 UNITS/3 ML VIAL SQ SCH ×4 (07:53→21:20)
[2019-04-07] MEDS ORDERED: Acetaminophen 325 MG TABLET PO PRN (11:09)
[2019-04-07] MEDS ORDERED: Piperacillin/Tazobactam 3.375 GM in 0.9 % Sodium Chloride Mini Bag 100 ML IVPB ONE (16:14)
[2019-04-07] MEDS ORDERED: traZODone 50 MG TABLET PO SCH (21:00)
[2019-04-08] MEDS: *HR* Heparin 5,000 UNIT/ML VIAL SQ SCH (06:08)
[2019-04-08] MEDS: Insulin LISPRO 300 UNITS/3 ML VIAL SQ SCH ×2 (07:44→12:02)
[2019-04-08] MEDS: Insulin DETEMIR 100 UNIT/ML X5UNITS SQ SCH (07:46)
[2019-04-08] MEDS ORDERED: FLUoxetine 20 MG CAPSULE PO SCH (09:00)
[2019-04-08 11:53] VITALS: BP 131/79
[2019-04-08] MEDS ORDERED: Aminoglycoside Consult 1 EACH MC ONE (14:45)
== END 2019-04-08 14:46 | disposition home health service (06) | DRG 571 ==
LOC: EMEROOARM 15:38 → 3ANU 15:38 → SUATTDRO 04-05 02:25
PROVIDERS: ADMIT Internal Medicine; ATTEND Internal Medicine

== ENCOUNTER 2019-07-30 16:21 | Inpatient (IN) ==
[2019-07-30] MEDS ORDERED: 0.9 % Sodium Chloride 1,000 ML IVC ONE (18:49)
[2019-07-30] MEDS ORDERED: Isovue-370 500 ML BOTTLE IVP ONE ×3 (18:50→19:03)
[2019-07-30 18:53] LABS: Basophils % 0.3 %; Eosinophils # 0.2 K/mcL (0.0-0.6); Eosinophils % 1.5 %; Hematocrit 39.9 % (37.5-50.1); Hemoglobin 14.3 g/dL (12.9-16.9); Immature Granulocytes % 0.4 % (0-4); Lymphocytes # 3.5 K/mcL (0.6-4.6); Mean Corpuscular HGB Conc 35.8 g/dL (31.6-35.5); Mean Corpuscular Hemoglobin 30.6 pg (28.0-33.3); Mean Corpuscular Volume 85.4 fL (83.0-100.0); Mean Platelet Volume 8.9 fL (9.4-12.4); Monocytes # 0.7 K/mcL (0.0-1.3); Monocytes % 4.9 %; Neutrophils # 9.1 K/mcL (1.6-8.9); Platelet Count 459 K/mcL (140-400); Red Blood Count 4.67 M/mcL (4.19-5.50); Red Cell Distribution Width 12.9 % (11.5-14.5); Segmented Neutrophils % 66.9 %; White Blood Count 13.6 K/mcL (4.3-11.1)
[2019-07-30] MEDS ORDERED: *HR* OxyCODONE Immed Rel 5 MG TABLET PO STA (18:57)
[2019-07-30] MEDS ORDERED: *HR* HYDROmorphone (PF) 1 MG/ML SYRINGE IVP STA (18:58)
[2019-07-30 20:00] LABS: Alanine Aminotransferase 8 Units/L (7-52); Albumin 3.3 g/dL (3.5-5.7); Alkaline Phosphatase 97 Units/L (34-104); Aspartate Amino Transferase 9 Units/L (13-39); BUN/Creatinine Ratio 20 (6-26); Bilirubin,Total 0.2 mg/dL (0.3-1.0); Blood Urea Nitrogen 17 mg/dL (6-20); Calcium 8.5 mg/dL (8.6-10.3); Carbon Dioxide 29 mEq/L (23-29); Chloride 97 mEq/L (98-107); Globulin 3.3 g/dL (2.4-3.5); Glucose 471 mg/dL (70-105); Osmolality,Calculated 300 (280-300); Potassium 4.2 mEq/L (3.5-5.1); Sodium 134 mEq/L (136-145); Total Protein 6.6 g/dL (6.4-8.9); eGFR For African Americans > 60 (> 60); eGFR For Non-African Americans > 60 (> 60)
[2019-07-30] MEDS ORDERED: Piperacillin/Tazobactam 3.375 GM in 0.9 % Sodium Chloride Mini Bag 100 ML IVPB ONE (20:01)
[2019-07-30 20:58] LABS: VBG HCO3 28 mEq/L (21-27); VBG PCO2 40 mmHg (41-51); VBG PH 7.44 pH Units (7.32-7.42); VBG PO2 223 mmHg (25-50)
[2019-07-30] MEDS ORDERED: Insulin Regular, Human 100 UNIT/ML SQ ONE (21:41)
[2019-07-30] MEDS ORDERED: D5% in Water 1,000 ML IVC PRN (21:46)
[2019-07-30] MEDS ORDERED: *HR* Dextrose 50 % in Water (Syg) 50 ML SYRINGE IVP PRN (21:46)
[2019-07-30] MEDS ORDERED: Acetaminophen 325 MG TABLET PO PRN (21:46)
[2019-07-30] MEDS ORDERED: Naloxone 0.4 MG/ML INJ IVP PRN (21:46)
[2019-07-30] MEDS ORDERED: Dextrose Gel 15 GM/37.5 ML TUBE PO PRN ×2 (21:46)
[2019-07-30] MEDS ORDERED: Ondansetron ODT 4 MG TAB.RAPDIS PO PRN (21:50)
[2019-07-30] MEDS ORDERED: Ipratropium/Albuterol Neb 3 ML IH PRN (21:50)
[2019-07-30] MEDS ORDERED: 0.9 % Sodium Chloride 1,000 ML IVC SCH (22:00)
[2019-07-30] MEDS: Insulin DETEMIR 100 UNIT/ML X5UNITS SQ SCH (22:48)
[2019-07-31] MEDS: Insulin LISPRO 300 UNITS/3 ML VIAL SQ SCH ×12 (00:36→20:32)
[2019-07-31] MEDS: traMADol 50 MG TABLET PO PRN ×2 (03:43→14:42)
[2019-07-31] MEDS: Artificial Tears SOLN 15 ML BOTTLE LEFT EYE PRN ×2 (03:44→09:08)
[2019-07-31] MEDS: Piperacillin/Tazobactam 3.375 GM in 0.9 % Sodium Chloride Mini Bag 100 ML IVPB SCH ×3 (04:55→20:33)
[2019-07-31] MEDS: *HR* Heparin 5,000 UNIT/ML VIAL SQ SCH ×3 (04:59→20:29)
[2019-07-31 05:36] LABS: Basophils % 0.3 %; Eosinophils # 0.1 K/mcL (0.0-0.6); Eosinophils % 0.9 %; Hemoglobin 13.1 g/dL (12.9-16.9); Immature Granulocytes % 0.4 % (0-4); Lymphocytes # 2.3 K/mcL (0.6-4.6); Lymphocytes % 17.7 %; Mean Corpuscular HGB Conc 35.4 g/dL (31.6-35.5); Mean Corpuscular Hemoglobin 30.5 pg (28.0-33.3); Mean Platelet Volume 8.6 fL (9.4-12.4); Monocytes # 0.6 K/mcL (0.0-1.3); Monocytes % 4.8 %; Platelet Count 364 K/mcL (140-400); Red Cell Distribution Width 12.8 % (11.5-14.5); Segmented Neutrophils % 75.9 %; White Blood Count 13.1 K/mcL (4.3-11.1)
[2019-07-31 05:54] LABS: Alanine Aminotransferase 8 Units/L (7-52); Albumin 3.2 g/dL (3.5-5.7); Alkaline Phosphatase 88 Units/L (34-104); Aspartate Amino Transferase 10 Units/L (13-39); BUN/Creatinine Ratio 20 (6-26); Bilirubin,Total 0.2 mg/dL (0.3-1.0); Blood Urea Nitrogen 13 mg/dL (6-20); Calcium 8.4 mg/dL (8.6-10.3); Carbon Dioxide 27 mEq/L (23-29); Chloride 102 mEq/L (98-107); Globulin 3.2 g/dL (2.4-3.5); Glucose 215 mg/dL (70-105); Osmolality,Calculated 291 (280-300); Potassium 3.8 mEq/L (3.5-5.1); Sodium 137 mEq/L (136-145); Total Protein 6.4 g/dL (6.4-8.9); eGFR For African Americans > 60 (> 60); eGFR For Non-African Americans > 60 (> 60)
[2019-07-31] MEDS ORDERED: BUPRENORPHINE 7.5 MCG/HR TP SCH (09:00)
[2019-07-31] MEDS: Gabapentin 300 MG CAPSULE PO SCH ×3 (09:08→20:29)
[2019-07-31] MEDS: Nicotine 14 MG PATCH.TD24 TD SCH (09:08)
[2019-07-31] MEDS: FLUoxetine 20 MG CAPSULE PO SCH (09:08)
[2019-07-31] MEDS ORDERED: Nicotine 2 MG GUM BC PRN (11:06)
[2019-07-31] MEDS: GuaiFENesin Liq 200 MG/10 ML UDC PO SCH (20:29)
[2019-07-31] MEDS: Magnesium Oxide 400 MG TABLET PO SCH (20:30)
[2019-07-31] MEDS: traZODone 50 MG TABLET PO SCH (20:30)
[2019-07-31] MEDS: Insulin DETEMIR 100 UNIT/ML X5UNITS SQ SCH (20:31)
[2019-07-31] MEDS: Ciprofloxacin HCL Soln 5 ML BOTTLE LEFT EYE SCH (20:49)
[2019-08-01] MEDS: Insulin LISPRO 300 UNITS/3 ML VIAL SQ SCH ×12 (00:46→20:20)
[2019-08-01] MEDS: Ciprofloxacin HCL Soln 5 ML BOTTLE LEFT EYE SCH ×6 (01:05→20:20)
[2019-08-01] MEDS: Artificial Tears SOLN 15 ML BOTTLE LEFT EYE PRN ×4 (01:07→17:22)
[2019-08-01] MEDS: *HR* Heparin 5,000 UNIT/ML VIAL SQ SCH ×3 (06:01→20:22)
[2019-08-01] MEDS: Piperacillin/Tazobactam 3.375 GM in 0.9 % Sodium Chloride Mini Bag 100 ML IVPB SCH ×3 (06:02→20:23)
[2019-08-01 08:28] LABS: Basophils % 0.4 %; Eosinophils # 0.3 K/mcL (0.0-0.6); Eosinophils % 2.5 %; Hemoglobin 13.2 g/dL (12.9-16.9); Immature Granulocytes % 0.4 % (0-4); Lymphocytes # 3.7 K/mcL (0.6-4.6); Mean Corpuscular HGB Conc 34.7 g/dL (31.6-35.5); Mean Corpuscular Hemoglobin 30.1 pg (28.0-33.3); Mean Corpuscular Volume 86.8 fL (83.0-100.0); Mean Platelet Volume 8.9 fL (9.4-12.4); Monocytes # 0.7 K/mcL (0.0-1.3); Monocytes % 6.4 %; Neutrophils # 6.5 K/mcL (1.6-8.9); Platelet Count 391 K/mcL (140-400); Red Blood Count 4.38 M/mcL (4.19-5.50); Segmented Neutrophils % 57.3 %; White Blood Count 11.3 K/mcL (4.3-11.1)
[2019-08-01 08:45] LABS: BUN/Creatinine Ratio 17 (6-26); Blood Urea Nitrogen 16 mg/dL (6-20); Calcium 8.6 mg/dL (8.6-10.3); Carbon Dioxide 29 mEq/L (23-29); Chloride 102 mEq/L (98-107); Glucose 178 mg/dL (70-105); Osmolality,Calculated 290 (280-300); Potassium 4.4 mEq/L (3.5-5.1); Sodium 137 mEq/L (136-145); eGFR For African Americans > 60 (> 60); eGFR For Non-African Americans > 60 (> 60)
[2019-08-01] MEDS ORDERED: NON-FORMULARY MEDICATION 1 EACH EACH (Fluoxetine Hcl [Prozac] 40 MG) PO SCH (09:00)
[2019-08-01] MEDS: GuaiFENesin Liq 200 MG/10 ML UDC PO SCH ×2 (09:48→20:22)
[2019-08-01] MEDS: FLUoxetine 20 MG CAPSULE PO SCH (09:49)
[2019-08-01] MEDS: Nicotine 14 MG PATCH.TD24 TD SCH (09:49)
[2019-08-01] MEDS: Gabapentin 300 MG CAPSULE PO SCH ×3 (09:49→20:23)
[2019-08-01] MEDS ORDERED: 0.9 % Sodium Chloride 1,000 ML ONE (12:26)
[2019-08-01] MEDS: Insulin DETEMIR 100 UNIT/ML X5UNITS SQ SCH (20:21)
[2019-08-01] MEDS: traZODone 50 MG TABLET PO SCH (20:23)
[2019-08-01] MEDS: Magnesium Oxide 400 MG TABLET PO SCH (20:23)
[2019-08-02] MEDS: Ciprofloxacin HCL Soln 5 ML BOTTLE LEFT EYE SCH ×7 (00:26→23:22)
[2019-08-02] MEDS: Artificial Tears SOLN 15 ML BOTTLE LEFT EYE PRN (01:14)
[2019-08-02] MEDS: *HR* Heparin 5,000 UNIT/ML VIAL SQ SCH ×3 (05:51→21:46)
[2019-08-02] MEDS: Piperacillin/Tazobactam 3.375 GM in 0.9 % Sodium Chloride Mini Bag 100 ML IVPB SCH ×3 (05:52→23:19)
[2019-08-02] MEDS: Gabapentin 300 MG CAPSULE PO SCH ×3 (08:29→21:38)
[2019-08-02] MEDS: GuaiFENesin Liq 200 MG/10 ML UDC PO SCH ×2 (08:30→21:38)
[2019-08-02] MEDS: FLUoxetine 20 MG CAPSULE PO SCH (08:30)
[2019-08-02] MEDS: Insulin LISPRO 300 UNITS/3 ML VIAL SQ SCH ×4 (08:30→21:37)
[2019-08-02] MEDS: Nicotine 14 MG PATCH.TD24 TD SCH (08:31)
[2019-08-02] MEDS: Magnesium Oxide 400 MG TABLET PO SCH (21:37)
[2019-08-02] MEDS: Insulin DETEMIR 100 UNIT/ML X5UNITS SQ SCH (21:37)
[2019-08-02] MEDS: traZODone 50 MG TABLET PO SCH (21:38)
[2019-08-03] MEDS: Ciprofloxacin HCL Soln 5 ML BOTTLE LEFT EYE SCH ×5 (03:00→22:42)
[2019-08-03 04:02] LABS: Hematocrit 36.7 % (37.5-50.1); Hemoglobin 12.9 g/dL (12.9-16.9); Mean Corpuscular HGB Conc 35.1 g/dL (31.6-35.5); Mean Corpuscular Hemoglobin 30.1 pg (28.0-33.3); Mean Corpuscular Volume 85.5 fL (83.0-100.0); Mean Platelet Volume 8.9 fL (9.4-12.4); Platelet Count 396 K/mcL (140-400); Red Blood Count 4.29 M/mcL (4.19-5.50); Red Cell Distribution Width 12.8 % (11.5-14.5); White Blood Count 10.8 K/mcL (4.3-11.1)
[2019-08-03 04:11] LABS: BUN/Creatinine Ratio 26 (6-26); Blood Urea Nitrogen 31 mg/dL (6-20); Calcium 9.2 mg/dL (8.6-10.3); Carbon Dioxide 30 mEq/L (23-29); Chloride 99 mEq/L (98-107); Glucose 345 mg/dL (70-105); Magnesium 1.8 mg/dL (1.6-2.6); Osmolality,Calculated 298 (280-300); Potassium 4.7 mEq/L (3.5-5.1); Sodium 134 mEq/L (136-145); eGFR For African Americans > 60 (> 60); eGFR For Non-African Americans > 60 (> 60)
[2019-08-03] MEDS: *HR* Heparin 5,000 UNIT/ML VIAL SQ SCH ×3 (05:36→22:15)
[2019-08-03] MEDS: Piperacillin/Tazobactam 3.375 GM in 0.9 % Sodium Chloride Mini Bag 100 ML IVPB SCH (05:37)
[2019-08-03] MEDS: GuaiFENesin Liq 200 MG/10 ML UDC PO SCH ×2 (09:17→22:43)
[2019-08-03] MEDS: Gabapentin 300 MG CAPSULE PO SCH ×3 (09:17→22:07)
[2019-08-03] MEDS: Nicotine 14 MG PATCH.TD24 TD SCH (09:18)
[2019-08-03] MEDS: FLUoxetine 20 MG CAPSULE PO SCH (09:18)
[2019-08-03] MEDS: Insulin LISPRO 300 UNITS/3 ML VIAL SQ SCH ×4 (09:20→22:14)
[2019-08-03] MEDS: traZODone 50 MG TABLET PO SCH (22:06)
[2019-08-03] MEDS: Magnesium Oxide 400 MG TABLET PO SCH (22:06)
[2019-08-03] MEDS: Insulin DETEMIR 100 UNIT/ML X5UNITS SQ SCH (22:13)
[2019-08-04] MEDS: Ciprofloxacin HCL Soln 5 ML BOTTLE LEFT EYE SCH ×7 (00:13→22:34)
[2019-08-04] MEDS: *HR* Heparin 5,000 UNIT/ML VIAL SQ SCH ×3 (05:22→21:28)
[2019-08-04] MEDS: Piperacillin/Tazobactam 3.375 GM in 0.9 % Sodium Chloride Mini Bag 100 ML IVPB SCH (09:14)
[2019-08-04] MEDS: FLUoxetine 20 MG CAPSULE PO SCH (09:18)
[2019-08-04] MEDS: Nicotine 14 MG PATCH.TD24 TD SCH (09:18)
[2019-08-04] MEDS: Gabapentin 300 MG CAPSULE PO SCH ×3 (09:18→21:28)
[2019-08-04] MEDS: GuaiFENesin Liq 200 MG/10 ML UDC PO SCH ×2 (09:18→21:28)
[2019-08-04] MEDS: Insulin LISPRO 300 UNITS/3 ML VIAL SQ SCH ×7 (09:19→21:40)
[2019-08-04 09:26] LABS: Basophils % 0.3 %; Eosinophils # 0.3 K/mcL (0.0-0.6); Eosinophils % 2.5 %; Hematocrit 39.3 % (37.5-50.1); Hemoglobin 13.8 g/dL (12.9-16.9); Immature Granulocytes % 0.4 % (0-4); Lymphocytes # 3.5 K/mcL (0.6-4.6); Lymphocytes % 27.5 %; Mean Corpuscular HGB Conc 35.1 g/dL (31.6-35.5); Mean Corpuscular Hemoglobin 30.2 pg (28.0-33.3); Mean Platelet Volume 8.7 fL (9.4-12.4); Monocytes # 0.6 K/mcL (0.0-1.3); Monocytes % 4.6 %; Neutrophils # 8.1 K/mcL (1.6-8.9); Platelet Count 408 K/mcL (140-400); Red Blood Count 4.57 M/mcL (4.19-5.50); Red Cell Distribution Width 13.1 % (11.5-14.5); Segmented Neutrophils % 64.7 %; White Blood Count 12.5 K/mcL (4.3-11.1)
[2019-08-04 09:45] LABS: BUN/Creatinine Ratio 32 (6-26); Blood Urea Nitrogen 33 mg/dL (6-20); Calcium 9.4 mg/dL (8.6-10.3); Carbon Dioxide 28 mEq/L (23-29); Chloride 102 mEq/L (98-107); Glucose 322 mg/dL (70-105); Osmolality,Calculated 300 (280-300); Sodium 135 mEq/L (136-145); eGFR For African Americans > 60 (> 60); eGFR For Non-African Americans > 60 (> 60)
[2019-08-04] MEDS ORDERED: Lidocaine/EPI 1:100k 1% 20 ML VIAL INFILT ONE (12:44)
[2019-08-04] MEDS ORDERED: *HR* LORazepam 2 MG/ML VIAL IVP ONE (17:07)
[2019-08-04] MEDS: Insulin DETEMIR 100 UNIT/ML X5UNITS SQ SCH (21:26)
[2019-08-04] MEDS: traZODone 50 MG TABLET PO SCH (21:28)
[2019-08-04] MEDS: Magnesium Oxide 400 MG TABLET PO SCH (21:30)
[2019-08-05] MEDS: Ciprofloxacin HCL Soln 5 ML BOTTLE LEFT EYE SCH ×6 (01:54→21:34)
[2019-08-05] MEDS: *HR* Heparin 5,000 UNIT/ML VIAL SQ SCH ×3 (05:41→21:18)
[2019-08-05 08:12] LABS: Basophils % 0.2 %; Eosinophils # 0.3 K/mcL (0.0-0.6); Eosinophils % 2.4 %; Hematocrit 38.9 % (37.5-50.1); Hemoglobin 13.6 g/dL (12.9-16.9); Immature Granulocytes % 0.4 % (0-4); Lymphocytes # 3.3 K/mcL (0.6-4.6); Lymphocytes % 23.4 %; Mean Corpuscular Hemoglobin 30.2 pg (28.0-33.3); Mean Corpuscular Volume 86.4 fL (83.0-100.0); Mean Platelet Volume 8.8 fL (9.4-12.4); Monocytes # 0.8 K/mcL (0.0-1.3); Monocytes % 5.9 %; Neutrophils # 9.5 K/mcL (1.6-8.9); Platelet Count 403 K/mcL (140-400); Red Cell Distribution Width 13.2 % (11.5-14.5); Segmented Neutrophils % 67.7 %
[2019-08-05 08:31] LABS: BUN/Creatinine Ratio 37 (6-26); Blood Urea Nitrogen 36 mg/dL (6-20); Calcium 9.3 mg/dL (8.6-10.3); Carbon Dioxide 27 mEq/L (23-29); Chloride 102 mEq/L (98-107); Glucose 314 mg/dL (70-105); Osmolality,Calculated 300 (280-300); Potassium 4.8 mEq/L (3.5-5.1); Sodium 135 mEq/L (136-145); eGFR For African Americans > 60 (> 60); eGFR For Non-African Americans > 60 (> 60)
[2019-08-05] MEDS ORDERED: Sulfamethoxazole/Trimeth DS 1 EACH TABLET PO SCH (09:00)
[2019-08-05] MEDS: GuaiFENesin Liq 200 MG/10 ML UDC PO SCH ×2 (09:09→21:34)
[2019-08-05] MEDS: Gabapentin 300 MG CAPSULE PO SCH ×3 (09:10→21:17)
[2019-08-05] MEDS: Insulin LISPRO 300 UNITS/3 ML VIAL SQ SCH ×4 (09:10→21:19)
[2019-08-05] MEDS: Nicotine 14 MG PATCH.TD24 TD SCH (09:12)
[2019-08-05] MEDS: FLUoxetine 20 MG CAPSULE PO SCH (09:16)
[2019-08-05] MEDS: traMADol 50 MG TABLET PO PRN ×2 (09:16→21:18)
[2019-08-05] MEDS: Magnesium Oxide 400 MG TABLET PO SCH (21:16)
[2019-08-05] MEDS: traZODone 50 MG TABLET PO SCH (21:17)
[2019-08-05] MEDS: Insulin DETEMIR 100 UNIT/ML X5UNITS SQ SCH (21:18)
[2019-08-06] MEDS: Ciprofloxacin HCL Soln 5 ML BOTTLE LEFT EYE SCH ×4 (00:05→13:32)
[2019-08-06] MEDS: *HR* Heparin 5,000 UNIT/ML VIAL SQ SCH (05:37)
[2019-08-06 06:01] LABS: Basophils % 0.2 %; Eosinophils # 0.3 K/mcL (0.0-0.6); Hematocrit 37.5 % (37.5-50.1); Hemoglobin 12.9 g/dL (12.9-16.9); Immature Granulocytes % 0.7 % (0-4); Lymphocytes # 2.6 K/mcL (0.6-4.6); Lymphocytes % 19.9 %; Mean Corpuscular HGB Conc 34.4 g/dL (31.6-35.5); Mean Corpuscular Hemoglobin 30.3 pg (28.0-33.3); Monocytes % 7.4 %; Platelet Count 386 K/mcL (140-400); Red Blood Count 4.26 M/mcL (4.19-5.50); Red Cell Distribution Width 13.2 % (11.5-14.5); Segmented Neutrophils % 69.8 %; White Blood Count 12.9 K/mcL (4.3-11.1)
[2019-08-06 06:27] LABS: BUN/Creatinine Ratio 32 (6-26); Blood Urea Nitrogen 33 mg/dL (6-20); Calcium 9.3 mg/dL (8.6-10.3); Carbon Dioxide 28 mEq/L (23-29); Chloride 104 mEq/L (98-107); Glucose 64 mg/dL (70-105); Osmolality,Calculated 295 (280-300); Potassium 3.9 mEq/L (3.5-5.1); Sodium 140 mEq/L (136-145); eGFR For African Americans > 60 (> 60); eGFR For Non-African Americans > 60 (> 60)
[2019-08-06] MEDS: Insulin LISPRO 300 UNITS/3 ML VIAL SQ SCH ×2 (08:28→13:31)
[2019-08-06] MEDS: Gabapentin 300 MG CAPSULE PO SCH (09:13)
[2019-08-06] MEDS: FLUoxetine 20 MG CAPSULE PO SCH (09:13)
[2019-08-06] MEDS: Nicotine 14 MG PATCH.TD24 TD SCH (09:14)
[2019-08-06] MEDS: GuaiFENesin Liq 200 MG/10 ML UDC PO SCH (09:14)
[2019-08-06 11:37] VITALS: BP 172/89
[2019-08-06] MEDS ORDERED: Aminoglycoside Consult 1 EACH MC ONE (14:40)
== END 2019-08-06 14:41 | disposition home health service (06) | DRG 720 ==
LOC: EMEROOARM 16:21 → 3BNU 16:21 → SUATTDRO 21:48 → 3BNU 22:05 → SUATTDRO 07-31 14:56
PROVIDERS: ADMIT Internal Medicine; ATTEND Internal Medicine

== ENCOUNTER 2019-12-28 21:51 | Inpatient (IN) ==
[2019-12-28] MEDS ORDERED: *HR* Dextrose 50 % in Water (Syg) 50 ML SYRINGE ONE (21:58)
[2019-12-28] MEDS ORDERED: *HR* Dextrose 50 % in Water (Syg) 50 ML SYRINGE IVP ONE ×2 (22:07→22:15)
[2019-12-28] MEDS ORDERED: 0.9 % Sodium Chloride 1,000 ML IVC ONE (22:17)
[2019-12-28] MEDS ORDERED: 0.9 % Sodium Chloride 1,000 ML ONE ×3 (22:18→23:25)
[2019-12-28] MEDS ORDERED: Naloxone 0.4 MG/ML INJ ONE (22:24)
[2019-12-28 22:25] LABS: Basophils % 0.2 %; Eosinophils % 0.1 %; Hemoglobin 14.6 g/dL (12.9-16.9); Immature Granulocytes % 0.7 % (0-4); Lymphocytes # 1.8 K/mcL (0.6-4.6); Lymphocytes % 11.3 %; Mean Corpuscular HGB Conc 33.2 g/dL (31.6-35.5); Mean Corpuscular Hemoglobin 30.5 pg (28.0-33.3); Mean Corpuscular Volume 91.9 fL (83.0-100.0); Mean Platelet Volume 8.6 fL (9.4-12.4); Monocytes # 0.7 K/mcL (0.0-1.3); Monocytes % 4.3 %; Neutrophils # 13.6 K/mcL (1.6-8.9); Platelet Count 340 K/mcL (140-400); Red Blood Count 4.79 M/mcL (4.19-5.50); Segmented Neutrophils % 83.4 %; White Blood Count 16.2 K/mcL (4.3-11.1)
[2019-12-28] MEDS: D10% in Water 500 ML IVC SCH (22:25)
[2019-12-28] MEDS ORDERED: Naloxone 0.4 MG/ML INJ IVP ONE (22:27)
[2019-12-28 22:39] LABS: Prothrombin Time 11.8 Seconds (9.4-12.1)
[2019-12-28 22:42] LABS: Activated Partial Thrombo Time 36.7 Seconds (26.0-36.0)
[2019-12-28 22:44] LABS: Alanine Aminotransferase 14 Units/L (7-52); Albumin 3.6 g/dL (3.5-5.7); Albumin/Globulin Ratio 1.2 (1.1-2.2); Alkaline Phosphatase 99 Units/L (34-104); Aspartate Amino Transferase 20 Units/L (13-39); BUN/Creatinine Ratio 14 (6-26); Bilirubin,Indirect 0.2 mg/dL (0.0-1.0); Bilirubin,Total 0.2 mg/dL (0.3-1.0); Blood Urea Nitrogen 42 mg/dL (6-20); Calcium 8.8 mg/dL (8.6-10.3); Carbon Dioxide 28 mEq/L (23-29); Chloride 99 mEq/L (98-107); Ethanol < 10 mg/dL (Less than 10); Glucose 221 mg/dL (70-105); Osmolality,Calculated 307 (280-300); Potassium 3.6 mEq/L (3.5-5.1); Sodium 140 mEq/L (136-145); Total Protein 6.6 g/dL (6.4-8.9); eGFR For African Americans 27 (> 60); eGFR For Non-African Americans 22 (> 60)
[2019-12-28 22:46] LABS: Bilirubin,Urine Moderate (Negative); Blood,Urine Negative (Negative); Clarity,Urine Turbid (Clear); Color,Urine Orange (Yellow); Glucose,Urine (UA) 500 mg/dL (Normal); Ketones,Urine Trace mg/dL (Negative); Leukocyte Esterase,Urine Moderate (Negative); Nitrite,Urine Negative (Negative); Protein,Urine >=1000 mg/dL (Neg-Trace); Urobilinogen,Urine Normal (Normal)
[2019-12-28 22:48] LABS: Carboxyhemoglobin 20.2 % (0-5)
[2019-12-28 22:49] LABS: Bacteria,Urine None Seen per hpf (None-Few); RBC,Urine 0-3 per hpf (0-3); Squamous Epithelial Cell,Urine Many per lpf (None-Few)
[2019-12-28] MEDS ORDERED: Dexmedetomidine HCl 400 MCG/100 ML MLS IVC ONE (22:52)
[2019-12-28 22:55] LABS: Amphetamine Screen,Urine Negative ng/mL (Cutoff=1000); Barbiturate Screen,Urine Negative ng/mL (Cutoff=200); Benzodiazepines Screen,Urine Negative ng/mL (Cutoff=200); Cannabinoid Screen,Urine Negative ng/mL (Cutoff = 50); Cocaine Screen,Urine Negative ng/mL (Cutoff= 300); Opiate Screen,Urine Negative ng/mL (Cutoff=300); Phencyclidine Screen,Urine Negative ng/mL (Cutoff=25)
[2019-12-28 22:55] LABS: ABG Base Excess -3 mEq/L (-2 to 3); ABG HCO3 18 mEq/L (21-27); ABG Oxygen Saturation 100 % (95-98); ABG PCO2 22 mmHg (35-45); ABG PH 7.52 pH Units (7.32-7.45); ABG PO2 206 mmHg (85-104); ABG TCO2 18 mEq/L (20-26)
[2019-12-28] MEDS ORDERED: Piperacillin/Tazobactam 3.375 GM in 0.9 % Sodium Chloride Mini Bag 100 ML IVPB ONE (22:59)
[2019-12-28] MEDS ORDERED: levoFLOXacin 500 MG/100 ML 500 MG/100 ML BAG IVPB ONE (22:59)
[2019-12-28 23:02] LABS: Acetaminophen < 10 mcg/mL (10-20); Salicylate < 2.5 mg/dL (15.0-30.0)
[2019-12-28] MEDS ORDERED: *HR* EPINEPHrine 100 MCG/10 ML SYRINGE IVP ONE (23:02)
[2019-12-28] MEDS ORDERED: *HR* Norepinephrine 4 MG/4 ML VIAL IVC ONE (23:06)
[2019-12-28] MEDS ORDERED: 0.9 % Sodium Chloride 250 ML ONE (23:06)
[2019-12-28] MEDS: Dexmedetomidine HCl 400 MCG/100 ML MLS IVC SCH (23:15)
[2019-12-28 23:20] LABS: Hyaline Casts,Urine Few per lpf (None-Few)
[2019-12-28 23:21] LABS: Amorphous Sediment,Urine Moderate per hpf (Few)
[2019-12-28] MEDS: Norepinephrine 4 MG in 0.9 % Sodium Chloride 250 ML IVC SCH (23:25)
[2019-12-29 00:10] LABS: Troponin I 0.08 ng/mL (< 0.04)
[2019-12-29 00:51] LABS: C-Reactive Protein 94 mg/L (Less than 10)
[2019-12-29 01:10] LABS: Ferritin 98 ng/mL (20-250)
[2019-12-29] MEDS ORDERED: Naloxone 0.4 MG/ML INJ IVP PRN (03:46)
[2019-12-29] MEDS: Dexmedetomidine HCl 400 MCG/100 ML MLS IVC SCH ×5 (03:50→22:31)
[2019-12-29 04:33] LABS: ABG Base Excess -1 mEq/L (-2 to 3); ABG HCO3 27 mEq/L (21-27); ABG Oxygen Saturation 95 % (95-98); ABG PCO2 59 mmHg (35-45); ABG PH 7.27 pH Units (7.32-7.45); ABG PO2 90 mmHg (85-104); ABG TCO2 29 mEq/L (20-26); Blood Gas Modality ASSIST CONTROL; Blood Gas VT 500 cc
[2019-12-29] MEDS: D10% in Water 500 ML IVC SCH ×9 (05:08→22:11)
[2019-12-29] MEDS: Pantoprazole 40 MG VIAL IVP SCH ×2 (05:09→17:00)
[2019-12-29 05:22] LABS: Hematocrit 43.6 % (37.5-50.1); Hemoglobin 14.2 g/dL (12.9-16.9); Mean Corpuscular HGB Conc 32.6 g/dL (31.6-35.5); Mean Corpuscular Volume 92.2 fL (83.0-100.0); Mean Platelet Volume 8.8 fL (9.4-12.4); Platelet Count 280 K/mcL (140-400); Red Blood Count 4.73 M/mcL (4.19-5.50); Red Cell Distribution Width 14.2 % (11.5-14.5)
[2019-12-29 05:25] LABS: White Blood Count 4.4 K/mcL (4.3-11.1)
[2019-12-29 05:43] LABS: Albumin/Globulin Ratio 1.2 (1.1-2.2); Bilirubin,Total 0.5 mg/dL (0.3-1.0); Calcium 7.6 mg/dL (8.6-10.3); Globulin 2.6 g/dL (2.4-3.5); Potassium 3.6 mEq/L (3.5-5.1); Total Protein 5.6 g/dL (6.4-8.9)
[2019-12-29 05:47] LABS: Troponin I 0.22 ng/mL (< 0.04)
[2019-12-29] MEDS ORDERED: *HR* Heparin 5,000 UNIT/ML VIAL IVP ONE (05:52)
[2019-12-29] MEDS ORDERED: *HR* Heparin 5,000 UNIT/ML VIAL IVP PRN ×2 (05:52)
[2019-12-29] MEDS ORDERED: *HR* Heparin 5,000 UNIT/ML VIAL SQ SCH (06:00)
[2019-12-29 06:36] LABS: Heparin anti-factor XA UFH < 0.04 IU/mL (0.30-0.70)
[2019-12-29 06:37] LABS: Prothrombin Time 11.4 Seconds (9.4-12.1)
[2019-12-29] MEDS ORDERED: *HR* Dextrose 50 % in Water (Syg) 50 ML SYRINGE IVP ONE (08:17)
[2019-12-29] MEDS: Piperacillin/Tazobactam 3.375 GM in 0.9 % Sodium Chloride Mini Bag 100 ML IVPB SCH ×2 (08:30→15:45)
[2019-12-29] MEDS: Heparin 25,000 UNIT/250 ML D5W 25,000 UNIT/250 ML IV.SOLN IVC SCH (08:30)
[2019-12-29] MEDS ORDERED: levoFLOXacin 750 MG/150 ML 750 MG/150 ML BAG IVPB SCH (09:00)
[2019-12-29] MEDS ORDERED: *HR* Rocuronium Bromide 100 MG/10 ML VIAL IVC ONE (09:01)
[2019-12-29] MEDS ORDERED: *HR* Etomidate 20 MG/10 ML AMPUL IVP ONE (09:01)
[2019-12-29] MEDS: FentaNYL (PF) 1,000 MCG in 0.9 % Sodium Chloride 80 ML IVC SCH ×2 (12:08→19:51)
[2019-12-29] MEDS: Norepinephrine 4 MG in 0.9 % Sodium Chloride 250 ML IVC SCH (14:00)
[2019-12-29] MEDS ORDERED: Potassium Chloride Elixir 20 MEQ/15 ML UDC GTUBE ONE (15:22)
[2019-12-29 15:35] LABS: Heparin anti-factor XA UFH 0.2 IU/mL (0.30-0.70)
[2019-12-30] MEDS: Piperacillin/Tazobactam 3.375 GM in 0.9 % Sodium Chloride Mini Bag 100 ML IVPB SCH ×4 (00:15→23:49)
[2019-12-30] MEDS: D10% in Water 500 ML IVC SCH ×3 (00:15→05:25)
[2019-12-30] MEDS: Dexmedetomidine HCl 400 MCG/100 ML MLS IVC SCH ×2 (02:48→07:45)
[2019-12-30 04:24] LABS: Basophils # 0.1 K/mcL (0.0-0.2); Basophils % 0.2 %; Hematocrit 40.5 % (37.5-50.1); Hemoglobin 13.7 g/dL (12.9-16.9); Immature Granulocytes % 1.2 % (0-4); Lymphocytes # 1.9 K/mcL (0.6-4.6); Lymphocytes % 8.6 %; Mean Corpuscular HGB Conc 33.8 g/dL (31.6-35.5); Mean Corpuscular Hemoglobin 30.4 pg (28.0-33.3); Mean Platelet Volume 9.1 fL (9.4-12.4); Monocytes % 4.6 %; Neutrophils # 19.2 K/mcL (1.6-8.9); Platelet Count 255 K/mcL (140-400); Red Cell Distribution Width 14.2 % (11.5-14.5); Segmented Neutrophils % 85.4 %
[2019-12-30 04:30] LABS: White Blood Count 22.5 K/mcL (4.3-11.1)
[2019-12-30 04:38] LABS: ABG Base Excess 2 mEq/L (-2 to 3); ABG HCO3 27 mEq/L (21-27); ABG Oxygen Saturation 97 % (95-98); ABG PCO2 46 mmHg (35-45); ABG PH 7.39 pH Units (7.32-7.45); ABG PO2 94 mmHg (85-104); ABG TCO2 29 mEq/L (20-26); Blood Gas Modality VC; Blood Gas VT 500 cc
[2019-12-30 04:45] LABS: Alanine Aminotransferase 12 Units/L (7-52); Alkaline Phosphatase 70 Units/L (34-104); Aspartate Amino Transferase 16 Units/L (13-39); BUN/Creatinine Ratio 25 (6-26); Bilirubin,Total 0.5 mg/dL (0.3-1.0); Blood Urea Nitrogen 30 mg/dL (6-20); Calcium 7.7 mg/dL (8.6-10.3); Carbon Dioxide 25 mEq/L (23-29); Chloride 101 mEq/L (98-107); Glucose 185 mg/dL (70-105); Magnesium 1.4 mg/dL (1.6-2.6); Osmolality,Calculated 291 (280-300); Phosphorous 3.3 mg/dL (2.7-4.5); Sodium 135 mEq/L (136-145); eGFR For African Americans > 60 (> 60); eGFR For Non-African Americans > 60 (> 60)
[2019-12-30 04:55] LABS: Troponin I 0.28 ng/mL (< 0.04)
[2019-12-30 05:23] LABS: Platelet Estimate Normal (Normal)
[2019-12-30] MEDS: Heparin 25,000 UNIT/250 ML D5W 25,000 UNIT/250 ML IV.SOLN IVC SCH (05:25)
[2019-12-30] MEDS: Pantoprazole 40 MG VIAL IVP SCH (05:25)
[2019-12-30] MEDS ORDERED: Aminoglycoside Consult 1 EACH MC ONE (08:36)
[2019-12-30] MEDS ORDERED: levoFLOXacin 750 MG/150 ML 750 MG/150 ML BAG IVPB SCH (09:00)
[2019-12-30] MEDS: Aspirin 81 MG TAB.CHEW PO SCH (11:49)
[2019-12-30 13:56] LABS: Adenovirus Not Detected (Not Detect); Bordetella Pertussis Not Detected (Not Detect); Chlamydophila pneumoniae Not Detected (Not Detect); Coronavirus 229E Not Detected (Not Detect); Coronavirus HKU1 Not Detected (Not Detect); Coronavirus NL63 Not Detected (Not Detect); Coronavirus OC43 Not Detected (Not Detect); Human Metapneumovirus Not Detected (Not Detect); Human Rhinovirus/Enterovirus Not Detected (Not Detect); Influenza A Subtype 2009 H1 Not Detected (Not Detect); Influenza B Not Detected (Not Detect); Mycoplasma pneumoniae Not Detected (Not Detect); Parainfluenza Virus 1 Not Detected (Not Detect); Parainfluenza Virus 2 Not Detected (Not Detect); Parainfluenza Virus 3 Not Detected (Not Detect); Parainfluenza Virus 4 Not Detected (Not Detect); Respiratory Syncytial Virus Not Detected (Not Detect)
[2019-12-30] MEDS: carvediloL 6.25 MG TABLET PO SCH (16:35)
[2019-12-30] MEDS ORDERED: Gabapentin 300 MG CAPSULE PO SCH (23:45)
[2019-12-30] MEDS: Norepinephrine 4 MG in 0.9 % Sodium Chloride 250 ML IVC SCH (23:48)
[2019-12-30] MEDS: Gabapentin 300 MG CAPSULE PO SCH (23:49)
[2019-12-31] MEDS ORDERED: Aspirin 325 MG TABLET PO ONE (01:13)
[2019-12-31 01:42] LABS: VBG HCO3 29 mEq/L (21-27); VBG PCO2 54 mmHg (41-51); VBG PH 7.34 pH Units (7.32-7.42); VBG PO2 55 mmHg (25-50)
[2019-12-31 01:42] LABS: Hematocrit 34.6 % (37.5-50.1); Mean Platelet Volume 9.1 fL (9.4-12.4)
[2019-12-31 01:44] LABS: Hemoglobin 11.9 g/dL (12.9-16.9); Mean Corpuscular HGB Conc 34.4 g/dL (31.6-35.5); Mean Corpuscular Hemoglobin 31.1 pg (28.0-33.3); Mean Corpuscular Volume 90.3 fL (83.0-100.0); Platelet Count 200 K/mcL (140-400); Red Blood Count 3.83 M/mcL (4.19-5.50); Red Cell Distribution Width 14.1 % (11.5-14.5); White Blood Count 26.8 K/mcL (4.3-11.1)
[2019-12-31 02:00] LABS: Alanine Aminotransferase 14 Units/L (7-52); Alkaline Phosphatase 79 Units/L (34-104); Aspartate Amino Transferase 15 Units/L (13-39); BUN/Creatinine Ratio 34 (6-26); Bilirubin,Total 0.5 mg/dL (0.3-1.0); Blood Urea Nitrogen 31 mg/dL (6-20); Calcium 8.2 mg/dL (8.6-10.3); Carbon Dioxide 29 mEq/L (23-29); Chloride 100 mEq/L (98-107); Glucose 180 mg/dL (70-105); Magnesium 1.7 mg/dL (1.6-2.6); Osmolality,Calculated 291 (280-300); Phosphorous 1.8 mg/dL (2.7-4.5); Potassium 3.6 mEq/L (3.5-5.1); Sodium 135 mEq/L (136-145); eGFR For African Americans > 60 (> 60); eGFR For Non-African Americans > 60 (> 60)
[2019-12-31] MEDS: Nitroglycerin 0.4 MG TAB.SUBL SL PRN ×2 (02:10→02:27)
[2019-12-31 02:12] LABS: Lymphocytes # 0.5 K/mcL (0.6-4.6); Monocytes # 1.6 K/mcL (0.0-1.3); Neutrophils # 24.7 K/mcL (1.6-8.9); Platelet Estimate Normal (Normal)
[2019-12-31] MEDS: Heparin 25,000 UNIT/250 ML D5W 25,000 UNIT/250 ML IV.SOLN IVC SCH (04:42)
[2019-12-31] MEDS: Aspirin 81 MG TAB.CHEW PO SCH (07:57)
[2019-12-31] MEDS: carvediloL 6.25 MG TABLET PO SCH ×2 (07:58→15:40)
[2019-12-31] MEDS: Piperacillin/Tazobactam 3.375 GM in 0.9 % Sodium Chloride Mini Bag 100 ML IVPB SCH ×3 (07:58→23:42)
[2019-12-31] MEDS: Gabapentin 300 MG CAPSULE PO SCH ×2 (07:58→20:17)
[2019-12-31] MEDS ORDERED: levoFLOXacin 750 MG/150 ML 750 MG/150 ML BAG IVPB SCH (09:00)
[2019-12-31] MEDS ORDERED: *HR* Dextrose 50 % in Water (Syg) 50 ML SYRINGE IVP PRN ×2 (09:30→14:22)
[2019-12-31] MEDS ORDERED: D5% in Water 1,000 ML IVC PRN ×2 (09:30→14:22)
[2019-12-31] MEDS ORDERED: Dextrose Gel 15 GM/37.5 ML TUBE PO PRN ×4 (09:30→14:22)
[2019-12-31] MEDS ORDERED: Insulin LISPRO 300 UNITS/3 ML VIAL SQ SCH (11:30)
[2019-12-31] MEDS ORDERED: Nitroglycerin 0.4 MG TAB.SUBL SL PRN (14:22)
[2019-12-31] MEDS ORDERED: Naloxone 0.4 MG/ML INJ IVP PRN (14:22)
[2019-12-31] MEDS: Insulin LISPRO 300 UNITS/3 ML VIAL SQ SCH (16:32)
[2020-01-01 05:01] LABS: Basophils % 0.2 %; Eosinophils # 0.2 K/mcL (0.0-0.6); Eosinophils % 1.4 %; Hematocrit 32.5 % (37.5-50.1); Immature Granulocytes % 0.6 % (0-4); Lymphocytes % 11.6 %; Mean Corpuscular HGB Conc 33.8 g/dL (31.6-35.5); Mean Corpuscular Hemoglobin 30.6 pg (28.0-33.3); Mean Corpuscular Volume 90.3 fL (83.0-100.0); Mean Platelet Volume 9.1 fL (9.4-12.4); Monocytes # 0.7 K/mcL (0.0-1.3); Monocytes % 3.9 %; Neutrophils # 14.5 K/mcL (1.6-8.9); Platelet Count 195 K/mcL (140-400); Red Cell Distribution Width 14.1 % (11.5-14.5); Segmented Neutrophils % 82.3 %; White Blood Count 17.6 K/mcL (4.3-11.1)
[2020-01-01 05:22] LABS: BUN/Creatinine Ratio 30 (6-26); Blood Urea Nitrogen 23 mg/dL (6-20); Calcium 8.3 mg/dL (8.6-10.3); Carbon Dioxide 29 mEq/L (23-29); Chloride 103 mEq/L (98-107); Glucose 206 mg/dL (70-105); Osmolality,Calculated 296 (280-300); Potassium 3.8 mEq/L (3.5-5.1); Sodium 138 mEq/L (136-145); eGFR For African Americans > 60 (> 60); eGFR For Non-African Americans > 60 (> 60)
[2020-01-01] MEDS: Aspirin 81 MG TAB.CHEW PO SCH (07:59)
[2020-01-01] MEDS: lisinopriL 5 MG TABLET PO SCH (07:59)
[2020-01-01] MEDS: Gabapentin 300 MG CAPSULE PO SCH ×2 (07:59→20:34)
[2020-01-01] MEDS: carvediloL 6.25 MG TABLET PO SCH ×2 (08:00→16:51)
[2020-01-01] MEDS: polyethylene glycoL 3350 17 GM POWD.PACK PO SCH (08:00)
[2020-01-01] MEDS: Piperacillin/Tazobactam 3.375 GM in 0.9 % Sodium Chloride Mini Bag 100 ML IVPB SCH ×3 (08:01→23:53)
[2020-01-01] MEDS: Insulin LISPRO 300 UNITS/3 ML VIAL SQ SCH ×3 (08:03→16:52)
[2020-01-01] MEDS ORDERED: Furosemide 20 MG/2 ML VIAL IVP ONE (08:27)
[2020-01-01] MEDS ORDERED: lisinopriL 5 MG TABLET PO SCH (09:00)
[2020-01-01] MEDS ORDERED: polyethylene glycoL 3350 17 GM POWD.PACK PO SCH (09:00)
[2020-01-01] MEDS ORDERED: levoFLOXacin 750 MG/150 ML 750 MG/150 ML BAG IVPB SCH (09:00)
[2020-01-01] MEDS: Acetaminophen 325 MG TABLET PO PRN (10:56)
[2020-01-01] MEDS: *HR* Enoxaparin 40 MG/0.4 ML SYRINGE SQ SCH (12:11)
[2020-01-01] MEDS ORDERED: Ipratropium/Albuterol Neb 3 ML IH PRN (12:28)
[2020-01-02 04:01] LABS: Basophils # 0.1 K/mcL (0.0-0.2); Basophils % 0.3 %; Eosinophils # 0.3 K/mcL (0.0-0.6); Eosinophils % 1.8 %; Hematocrit 34.5 % (37.5-50.1); Hemoglobin 11.4 g/dL (12.9-16.9); Immature Granulocytes % 0.7 % (0-4); Lymphocytes # 2.8 K/mcL (0.6-4.6); Lymphocytes % 19.5 %; Mean Corpuscular Hemoglobin 29.8 pg (28.0-33.3); Mean Corpuscular Volume 90.1 fL (83.0-100.0); Mean Platelet Volume 8.9 fL (9.4-12.4); Monocytes # 0.8 K/mcL (0.0-1.3); Monocytes % 5.5 %; Neutrophils # 10.4 K/mcL (1.6-8.9); Platelet Count 228 K/mcL (140-400); Red Blood Count 3.83 M/mcL (4.19-5.50); Red Cell Distribution Width 14.2 % (11.5-14.5); Segmented Neutrophils % 72.2 %; White Blood Count 14.4 K/mcL (4.3-11.1)
[2020-01-02 04:15] LABS: BUN/Creatinine Ratio 25 (6-26); Blood Urea Nitrogen 19 mg/dL (6-20); Calcium 8.4 mg/dL (8.6-10.3); Carbon Dioxide 30 mEq/L (23-29); Chloride 105 mEq/L (98-107); Glucose 203 mg/dL (70-105); Magnesium 1.4 mg/dL (1.6-2.6); Osmolality,Calculated 298 (280-300); Potassium 3.8 mEq/L (3.5-5.1); Sodium 140 mEq/L (136-145); eGFR For African Americans > 60 (> 60); eGFR For Non-African Americans > 60 (> 60)
[2020-01-02] MEDS: *HR* Enoxaparin 40 MG/0.4 ML SYRINGE SQ SCH (06:03)
[2020-01-02] MEDS ORDERED: Furosemide 20 MG/2 ML VIAL IVP ONE (07:50)
[2020-01-02] MEDS: Insulin LISPRO 300 UNITS/3 ML VIAL SQ SCH ×4 (08:21→21:32)
[2020-01-02] MEDS: carvediloL 6.25 MG TABLET PO SCH ×2 (08:23→16:29)
[2020-01-02] MEDS: Piperacillin/Tazobactam 3.375 GM in 0.9 % Sodium Chloride Mini Bag 100 ML IVPB SCH ×3 (08:23→23:58)
[2020-01-02] MEDS: lisinopriL 5 MG TABLET PO SCH (08:24)
[2020-01-02] MEDS: polyethylene glycoL 3350 17 GM POWD.PACK PO SCH (08:24)
[2020-01-02] MEDS: Gabapentin 300 MG CAPSULE PO SCH ×2 (08:24→20:30)
[2020-01-02] MEDS: Aspirin 81 MG TAB.CHEW PO SCH (08:24)
[2020-01-02] MEDS ORDERED: *HR* OxyCODONE Immed Rel 5 MG TABLET PO ONE (20:53)
[2020-01-02] MEDS ORDERED: Insulin DETEMIR 100 UNIT/ML X5UNITS SQ SCH (21:00)
[2020-01-03 04:50] LABS: Basophils # 0.1 K/mcL (0.0-0.2); Basophils % 0.5 %; Eosinophils # 0.3 K/mcL (0.0-0.6); Eosinophils % 2.3 %; Hematocrit 34.3 % (37.5-50.1); Hemoglobin 11.3 g/dL (12.9-16.9); Lymphocytes # 2.9 K/mcL (0.6-4.6); Lymphocytes % 23.3 %; Mean Corpuscular HGB Conc 32.9 g/dL (31.6-35.5); Mean Corpuscular Hemoglobin 30.2 pg (28.0-33.3); Mean Corpuscular Volume 91.7 fL (83.0-100.0); Mean Platelet Volume 9.4 fL (9.4-12.4); Monocytes % 8.2 %; Neutrophils # 7.9 K/mcL (1.6-8.9); Platelet Count 233 K/mcL (140-400); Red Blood Count 3.74 M/mcL (4.19-5.50); Red Cell Distribution Width 13.9 % (11.5-14.5); Segmented Neutrophils % 63.7 %; White Blood Count 12.4 K/mcL (4.3-11.1)
[2020-01-03 04:58] LABS: BUN/Creatinine Ratio 23 (6-26); Blood Urea Nitrogen 16 mg/dL (6-20); Calcium 8.3 mg/dL (8.6-10.3); Carbon Dioxide 28 mEq/L (23-29); Chloride 102 mEq/L (98-107); Glucose 354 mg/dL (70-105); Magnesium 1.5 mg/dL (1.6-2.6); Osmolality,Calculated 297 (280-300); Potassium 4.1 mEq/L (3.5-5.1); Sodium 136 mEq/L (136-145); eGFR For African Americans > 60 (> 60); eGFR For Non-African Americans > 60 (> 60)
[2020-01-03] MEDS: *HR* Enoxaparin 40 MG/0.4 ML SYRINGE SQ SCH (05:23)
[2020-01-03 05:26] LABS: Hypochromasia Present (Not Present); Platelet Estimate Normal (Normal); Reactive Lymphocytes Present (Not Present)
[2020-01-03] MEDS: lisinopriL 5 MG TABLET PO SCH (09:11)
[2020-01-03] MEDS: polyethylene glycoL 3350 17 GM POWD.PACK PO SCH (09:12)
[2020-01-03] MEDS: Gabapentin 300 MG CAPSULE PO SCH ×2 (09:12→21:19)
[2020-01-03] MEDS: Insulin LISPRO 300 UNITS/3 ML VIAL SQ SCH ×7 (09:14→21:19)
[2020-01-03] MEDS: Aspirin 81 MG TAB.CHEW PO SCH (09:16)
[2020-01-03] MEDS: carvediloL 6.25 MG TABLET PO SCH ×2 (09:17→17:01)
[2020-01-03] MEDS: Piperacillin/Tazobactam 3.375 GM in 0.9 % Sodium Chloride Mini Bag 100 ML IVPB SCH ×2 (09:22→17:03)
[2020-01-03] MEDS: Acetaminophen 325 MG TABLET PO PRN (11:42)
[2020-01-03] MEDS ORDERED: Furosemide 40 MG/4 ML VIAL IVP ONE (12:24)
[2020-01-03] MEDS ORDERED: Insulin DETEMIR 100 UNIT/ML X5UNITS SQ SCH (21:00)
[2020-01-04] MEDS: Piperacillin/Tazobactam 3.375 GM in 0.9 % Sodium Chloride Mini Bag 100 ML IVPB SCH ×4 (00:12→23:47)
[2020-01-04 02:50] LABS: Basophils # 0.1 K/mcL (0.0-0.2); Basophils % 0.7 %; Eosinophils # 0.4 K/mcL (0.0-0.6); Eosinophils % 2.9 %; Hematocrit 37.1 % (37.5-50.1); Immature Granulocytes % 2.6 % (0-4); Lymphocytes # 4.5 K/mcL (0.6-4.6); Lymphocytes % 37.4 %; Mean Corpuscular HGB Conc 32.3 g/dL (31.6-35.5); Mean Corpuscular Hemoglobin 29.6 pg (28.0-33.3); Mean Corpuscular Volume 91.4 fL (83.0-100.0); Mean Platelet Volume 9.2 fL (9.4-12.4); Monocytes # 1.1 K/mcL (0.0-1.3); Monocytes % 8.7 %; Neutrophils # 5.8 K/mcL (1.6-8.9); Platelet Count 276 K/mcL (140-400); Red Blood Count 4.06 M/mcL (4.19-5.50); Red Cell Distribution Width 13.7 % (11.5-14.5); Segmented Neutrophils % 47.7 %; White Blood Count 12.1 K/mcL (4.3-11.1)
[2020-01-04 02:59] LABS: BUN/Creatinine Ratio 27 (6-26); Blood Urea Nitrogen 15 mg/dL (6-20); Calcium 8.9 mg/dL (8.6-10.3); Carbon Dioxide 31 mEq/L (23-29); Chloride 101 mEq/L (98-107); Glucose 184 mg/dL (70-105); Magnesium 1.5 mg/dL (1.6-2.6); Osmolality,Calculated 294 (280-300); Potassium 3.7 mEq/L (3.5-5.1); Sodium 139 mEq/L (136-145); eGFR For African Americans > 60 (> 60); eGFR For Non-African Americans > 60 (> 60)
[2020-01-04 03:12] LABS: Platelet Estimate Normal (Normal)
[2020-01-04 03:13] LABS: Reactive Lymphocytes Present (Not Present)
[2020-01-04] MEDS: *HR* Enoxaparin 40 MG/0.4 ML SYRINGE SQ SCH (05:06)
[2020-01-04] MEDS: Gabapentin 300 MG CAPSULE PO SCH ×2 (09:26→20:29)
[2020-01-04] MEDS: Furosemide 40 MG/4 ML VIAL IVP SCH (09:26)
[2020-01-04] MEDS: polyethylene glycoL 3350 17 GM POWD.PACK PO SCH (09:26)
[2020-01-04] MEDS: Aspirin 81 MG TAB.CHEW PO SCH (09:26)
[2020-01-04] MEDS: lisinopriL 5 MG TABLET PO SCH (09:27)
[2020-01-04] MEDS: carvediloL 6.25 MG TABLET PO SCH ×2 (09:27→18:48)
[2020-01-04] MEDS: Insulin LISPRO 300 UNITS/3 ML VIAL SQ SCH ×6 (09:28→18:49)
[2020-01-04] MEDS: Acetaminophen 325 MG TABLET PO PRN (18:48)
[2020-01-04] MEDS ORDERED: Methyl Salicylate/Menthol 28 GM TUBE TP PRN (20:37)
[2020-01-04] MEDS ORDERED: Methyl Salicylate/Menthol 57 APPL/57 GM TUBE TP PRN (21:00)
[2020-01-04] MEDS ORDERED: Insulin DETEMIR 100 UNIT/ML X5UNITS SQ SCH (21:00)
[2020-01-05] MEDS: *HR* Enoxaparin 40 MG/0.4 ML SYRINGE SQ SCH (05:04)
[2020-01-05 06:07] LABS: Basophils # 0.1 K/mcL (0.0-0.2); Basophils % 0.7 %; Eosinophils # 0.4 K/mcL (0.0-0.6); Eosinophils % 3.4 %; Hematocrit 38.1 % (37.5-50.1); Hemoglobin 12.7 g/dL (12.9-16.9); Immature Granulocytes % 3.2 % (0-4); Lymphocytes # 4.8 K/mcL (0.6-4.6); Lymphocytes % 39.9 %; Mean Corpuscular HGB Conc 33.3 g/dL (31.6-35.5); Mean Corpuscular Hemoglobin 30.2 pg (28.0-33.3); Mean Corpuscular Volume 90.5 fL (83.0-100.0); Monocytes % 8.1 %; Neutrophils # 5.3 K/mcL (1.6-8.9); Platelet Count 307 K/mcL (140-400); Red Blood Count 4.21 M/mcL (4.19-5.50); Red Cell Distribution Width 13.8 % (11.5-14.5); Segmented Neutrophils % 44.7 %; White Blood Count 11.9 K/mcL (4.3-11.1)
[2020-01-05 06:25] LABS: BUN/Creatinine Ratio 26 (6-26); Blood Urea Nitrogen 14 mg/dL (6-20); Calcium 8.8 mg/dL (8.6-10.3); Carbon Dioxide 30 mEq/L (23-29); Chloride 102 mEq/L (98-107); Glucose 145 mg/dL (70-105); Magnesium 1.4 mg/dL (1.6-2.6); Osmolality,Calculated 287 (280-300); Potassium 3.9 mEq/L (3.5-5.1); Sodium 137 mEq/L (136-145); eGFR For African Americans > 60 (> 60); eGFR For Non-African Americans > 60 (> 60)
[2020-01-05 06:36] LABS: Platelet Estimate Normal (Normal)
[2020-01-05] MEDS: Piperacillin/Tazobactam 3.375 GM in 0.9 % Sodium Chloride Mini Bag 100 ML IVPB SCH (08:30)
[2020-01-05] MEDS: Aspirin 81 MG TAB.CHEW PO SCH (08:31)
[2020-01-05] MEDS: lisinopriL 5 MG TABLET PO SCH (08:32)
[2020-01-05] MEDS: Gabapentin 300 MG CAPSULE PO SCH (08:32)
[2020-01-05] MEDS: Furosemide 40 MG/4 ML VIAL IVP SCH (08:32)
[2020-01-05] MEDS: polyethylene glycoL 3350 17 GM POWD.PACK PO SCH (08:33)
[2020-01-05] MEDS: Insulin LISPRO 300 UNITS/3 ML VIAL SQ SCH ×4 (08:33→11:55)
[2020-01-05] MEDS: carvediloL 6.25 MG TABLET PO SCH ×2 (08:33→16:43)
[2020-01-05 13:58] VITALS: BP 133/81
[2020-01-05] MEDS ORDERED: Insulin DETEMIR 100 UNIT/ML X5UNITS SQ SCH (21:00)
== END 2020-01-05 18:38 | DRG 720 ==
LOC: EMEROOARM 21:51 → SUATTDRO 12-29 01:02 → 2NNU 12-29 01:02 → ICNU 12-29 23:37 → 3ANU 12-31 15:24
PROVIDERS: ADMIT Internal Medicine; ATTEND Internal Medicine

== ENCOUNTER 2020-05-12 07:23 | Observation (INO) ==
[2020-05-12] MEDS ORDERED: 0.9 % Sodium Chloride 1,000 ML IVC ONE ×2 (07:34→08:41)
[2020-05-12] MEDS ORDERED: Ondansetron 4 MG/2 ML VIAL IVP ONE (07:34)
[2020-05-12 08:22] LABS: Basophils # 0.1 K/mcL (0.0-0.2); Basophils % 0.4 %; Eosinophils # 0.4 K/mcL (0.0-0.6); Eosinophils % 2.5 %; Hematocrit 44.7 % (37.5-50.1); Hemoglobin 15.6 g/dL (12.9-16.9); Immature Granulocytes % 0.4 % (0-4); Lymphocytes # 3.8 K/mcL (0.6-4.6); Lymphocytes % 23.2 %; Mean Corpuscular HGB Conc 34.9 g/dL (31.6-35.5); Mean Corpuscular Hemoglobin 29.3 pg (28.0-33.3); Mean Corpuscular Volume 83.9 fL (83.0-100.0); Mean Platelet Volume 8.7 fL (9.4-12.4); Monocytes # 0.9 K/mcL (0.0-1.3); Monocytes % 5.7 %; Neutrophils # 11.1 K/mcL (1.6-8.9); Platelet Count 357 K/mcL (140-400); Red Blood Count 5.33 M/mcL (4.19-5.50); Red Cell Distribution Width 12.8 % (11.5-14.5); Segmented Neutrophils % 67.8 %; White Blood Count 16.3 K/mcL (4.3-11.1)
[2020-05-12 08:51] LABS: Alanine Aminotransferase 8 Units/L (7-52); Albumin 3.5 g/dL (3.5-5.7); Alkaline Phosphatase 114 Units/L (34-104); Amylase 66 Units/L (29-103); Aspartate Amino Transferase 11 Units/L (13-39); BUN/Creatinine Ratio 21 (6-26); Bilirubin,Indirect 0.3 mg/dL (0.0-1.0); Bilirubin,Total 0.3 mg/dL (0.3-1.0); Blood Urea Nitrogen 30 mg/dL (6-20); Calcium 9.9 mg/dL (8.6-10.3); Carbon Dioxide 25 mEq/L (23-29); Chloride 98 mEq/L (98-107); Globulin 3.6 g/dL (2.4-3.5); Glucose 76 mg/dL (70-105); Lipase 120 Units/L (11-82); Osmolality,Calculated 281 (280-300); Potassium 4.3 mEq/L (3.5-5.1); Sodium 133 mEq/L (136-145); Total Protein 7.1 g/dL (6.4-8.9); Troponin I < 0.03 ng/mL (< 0.04); eGFR For African Americans > 60 (> 60); eGFR For Non-African Americans 53 (> 60)
[2020-05-12 10:56] LABS: Amorphous Sediment,Urine Few per hpf (None-Few); Bilirubin,Urine Negative (Negative); Blood,Urine Negative (Negative); Clarity,Urine Turbid (Clear); Color,Urine Yellow (Yellow); Glucose,Urine (UA) >=1000 mg/dL (Normal); Hyaline Casts,Urine Many per lpf (None Seen); Ketones,Urine Negative (Negative); Leukocyte Esterase,Urine Negative (Negative); Mucus,Urine Few per lpf (None-Few); Nitrite,Urine Negative (Negative); PH,Urine 5.5 pH Units (5.0-8.0); Protein,Urine 100 mg/dL (Neg-Trace); RBC,Urine 0-3 per hpf (0-3); Specific Gravity,Urine 1.018 (1.010-1.025); Squamous Epithelial Cell,Urine Few per hpf (None-Few); Urobilinogen,Urine Normal (Normal); WBC,Urine 0-3 per hpf (0-3)
[2020-05-12] MEDS ORDERED: *HR* HYDROcodone/Acet 5/325 mg TABLET PO ONE (13:38)
[2020-05-12] MEDS ORDERED: Acetaminophen 325 MG TABLET PO PRN (14:07)
[2020-05-12] MEDS ORDERED: Naloxone 0.4 MG/ML INJ IVP PRN (14:07)
[2020-05-12] MEDS ORDERED: Ondansetron 4 MG/2 ML VIAL IVP PRN (14:07)
[2020-05-12] MEDS ORDERED: Ringers Solution, Lactated 1,000 ML IVC SCH (14:15)
[2020-05-12] MEDS ORDERED: Ipratropium/Albuterol Neb 3 ML IH PRN (15:44)
[2020-05-12] MEDS ORDERED: Nicotine 2 MG GUM BC PRN (15:51)
[2020-05-12] MEDS: Nicotine 14 MG PATCH.TD24 TD SCH (16:31)
[2020-05-12] MEDS ORDERED: carvediloL 6.25 MG TABLET PO SCH (17:00)
[2020-05-12] MEDS ORDERED: traZODone 50 MG TABLET PO SCH (21:00)
[2020-05-12] MEDS ORDERED: Insulin DETEMIR 100 UNIT/ML X5UNITS SQ SCH (21:00)
[2020-05-12] MEDS: *HR* HYDROcodone/Acet 5/325 mg TABLET PO PRN (22:06)
[2020-05-13 00:50] LABS: Hematocrit 39.5 % (37.5-50.1); Mean Corpuscular HGB Conc 34.4 g/dL (31.6-35.5); Mean Corpuscular Hemoglobin 29.6 pg (28.0-33.3); Mean Corpuscular Volume 86.1 fL (83.0-100.0); Mean Platelet Volume 8.6 fL (9.4-12.4); Platelet Count 292 K/mcL (140-400); Red Blood Count 4.59 M/mcL (4.19-5.50); Red Cell Distribution Width 12.9 % (11.5-14.5); White Blood Count 14.2 K/mcL (4.3-11.1)
[2020-05-13 00:52] LABS: Hemoglobin 13.6 g/dL (12.9-16.9)
[2020-05-13 01:08] LABS: BUN/Creatinine Ratio 34 (6-26); Blood Urea Nitrogen 28 mg/dL (6-20); Calcium 8.4 mg/dL (8.6-10.3); Carbon Dioxide 23 mEq/L (23-29); Chloride 101 mEq/L (98-107); Glucose 275 mg/dL (70-105); Magnesium 1.9 mg/dL (1.6-2.6); Osmolality,Calculated 285 (280-300); Potassium 4.4 mEq/L (3.5-5.1); Sodium 130 mEq/L (136-145); eGFR For African Americans > 60 (> 60); eGFR For Non-African Americans > 60 (> 60)
[2020-05-13] MEDS: *HR* HYDROcodone/Acet 5/325 mg TABLET PO PRN (03:59)
[2020-05-13] MEDS ORDERED: *HR* Enoxaparin 30 MG/0.3 ML SYRINGE SQ SCH (06:00)
[2020-05-13 07:00] VITALS: BP 100/62
[2020-05-13] MEDS: Nicotine 14 MG PATCH.TD24 TD SCH (08:07)
[2020-05-13] MEDS ORDERED: BUPRENORPHINE TP SCH (09:00)
[2020-05-14] MEDS ORDERED: *HR* Enoxaparin 40 MG/0.4 ML SYRINGE SQ SCH (06:00)
== END 2020-05-13 10:41 | disposition home or self-care (01) ==
LOC: EMEROOARM 07:23 → 2NNU 07:23 → SUATTDRO 11:54 → 2NNU 13:03
PROVIDERS: ADMIT Internal Medicine; ATTEND Family Medicine

== ENCOUNTER 2020-05-19 12:14 | Inpatient (IN) ==
[2020-05-19] MEDS ORDERED: 0.9 % Sodium Chloride 2,000 ML ONE (12:25)
[2020-05-19] MEDS ORDERED: 0.9 % Sodium Chloride 500 ML IVC ONE (12:30)
[2020-05-19] MEDS ORDERED: Aspirin 81 MG TAB.CHEW PO ONE (12:30)
[2020-05-19] MEDS ORDERED: 0.9 % Sodium Chloride 1,000 ML IVC ONE ×2 (12:35→12:37)
[2020-05-19 12:54] LABS: Basophils # 0.1 K/mcL (0.0-0.2); Basophils % 0.4 %; Eosinophils # 0.3 K/mcL (0.0-0.6); Eosinophils % 2.1 %; Hematocrit 43.5 % (37.5-50.1); Hemoglobin 15.1 g/dL (12.9-16.9); Immature Granulocytes % 0.6 % (0-4); Lymphocytes % 28.9 %; Mean Corpuscular HGB Conc 34.7 g/dL (31.6-35.5); Mean Corpuscular Hemoglobin 29.9 pg (28.0-33.3); Mean Corpuscular Volume 86.1 fL (83.0-100.0); Mean Platelet Volume 8.9 fL (9.4-12.4); Monocytes # 0.9 K/mcL (0.0-1.3); Monocytes % 6.7 %; Neutrophils # 8.5 K/mcL (1.6-8.9); Platelet Count 374 K/mcL (140-400); Red Blood Count 5.05 M/mcL (4.19-5.50); Red Cell Distribution Width 12.9 % (11.5-14.5); Segmented Neutrophils % 61.3 %; White Blood Count 13.8 K/mcL (4.3-11.1)
[2020-05-19 13:10] LABS: Activated Partial Thrombo Time 33.7 Seconds (26.0-36.0)
[2020-05-19 13:18] LABS: Alanine Aminotransferase 8 Units/L (7-52); Albumin 3.5 g/dL (3.5-5.7); Alkaline Phosphatase 140 Units/L (34-104); Amylase 50 Units/L (29-103); Aspartate Amino Transferase 9 Units/L (13-39); BUN/Creatinine Ratio 26 (6-26); Bilirubin,Indirect 0.3 mg/dL (0.0-1.0); Bilirubin,Total 0.3 mg/dL (0.3-1.0); Blood Urea Nitrogen 45 mg/dL (6-20); Calcium 9.7 mg/dL (8.6-10.3); Carbon Dioxide 27 mEq/L (23-29); Chloride 98 mEq/L (98-107); Globulin 3.4 g/dL (2.4-3.5); Glucose 158 mg/dL (70-105); Lipase 58 Units/L (11-82); Magnesium 2.1 mg/dL (1.6-2.6); Osmolality,Calculated 289 (280-300); Potassium 4.6 mEq/L (3.5-5.1); Sodium 132 mEq/L (136-145); Total Protein 6.9 g/dL (6.4-8.9); Troponin I < 0.03 ng/mL (< 0.04); eGFR For African Americans 51 (> 60); eGFR For Non-African Americans 42 (> 60)
[2020-05-19] MEDS: 0.9 % Sodium Chloride 1,000 ML IVC SCH ×2 (13:52→23:03)
[2020-05-19] MEDS ORDERED: Acetaminophen 325 MG TABLET PO PRN (15:12)
[2020-05-19] MEDS ORDERED: Naloxone 0.4 MG/ML INJ IVP PRN (15:12)
[2020-05-19] MEDS ORDERED: Ondansetron 4 MG/2 ML VIAL IVP PRN (15:12)
[2020-05-19] MEDS ORDERED: Ringers Solution, Lactated 1,000 ML IVC SCH (15:15)
[2020-05-19] MEDS ORDERED: D5% in Water 1,000 ML IVC PRN (15:17)
[2020-05-19] MEDS ORDERED: *HR* Dextrose 50 % in Water (Vial) 50 ML VIAL IVP PRN (15:17)
[2020-05-19] MEDS ORDERED: Dextrose Gel 15 GM/37.5 ML TUBE PO PRN ×2 (15:17)
[2020-05-19 15:32] LABS: Bilirubin,Urine Negative (Negative); Blood,Urine Negative (Negative); Clarity,Urine Clear (Clear); Color,Urine Light-Yellow (Yellow); Glucose,Urine (UA) 500 mg/dL (Normal); Hyaline Casts,Urine Many per lpf (None Seen); Ketones,Urine Negative (Negative); Leukocyte Esterase,Urine Negative (Negative); Mucus,Urine Few per lpf (None-Few); Nitrite,Urine Negative (Negative); PH,Urine 5.5 pH Units (5.0-8.0); Protein,Urine 70 mg/dL (Neg-Trace); RBC,Urine 0-3 per hpf (0-3); Specific Gravity,Urine 1.014 (1.010-1.025); Squamous Epithelial Cell,Urine Few per hpf (None-Few); Urobilinogen,Urine Normal (Normal); WBC,Urine 0-3 per hpf (0-3)
[2020-05-19 15:47] LABS: Amphetamine Screen,Urine Negative ng/mL (Cutoff=1000); Barbiturate Screen,Urine Negative ng/mL (Cutoff=200); Benzodiazepines Screen,Urine Negative ng/mL (Cutoff=200); Cannabinoid Screen,Urine Negative ng/mL (Cutoff = 50); Cocaine Screen,Urine Negative ng/mL (Cutoff= 300); Opiate Screen,Urine Negative ng/mL (Cutoff=300); Phencyclidine Screen,Urine Negative ng/mL (Cutoff=25)
[2020-05-19 15:54] LABS: Thyroid Stimulating Hormone 2.422 mcIU/mL (0.340-5.600)
[2020-05-19] MEDS: Insulin LISPRO 300 UNITS/3 ML VIAL SQ SCH (16:34)
[2020-05-19] MEDS ORDERED: Insulin DETEMIR 100 UNIT/ML X5UNITS SQ SCH (21:00)
[2020-05-20 05:05] LABS: Basophils # 0.1 K/mcL (0.0-0.2); Basophils % 0.5 %; Eosinophils # 0.3 K/mcL (0.0-0.6); Eosinophils % 2.9 %; Hematocrit 42.3 % (37.5-50.1); Hemoglobin 13.9 g/dL (12.9-16.9); Immature Granulocytes % 0.3 % (0-4); Lymphocytes # 3.9 K/mcL (0.6-4.6); Lymphocytes % 36.4 %; Mean Corpuscular HGB Conc 32.9 g/dL (31.6-35.5); Mean Corpuscular Hemoglobin 28.7 pg (28.0-33.3); Mean Corpuscular Volume 87.2 fL (83.0-100.0); Mean Platelet Volume 8.9 fL (9.4-12.4); Monocytes # 0.5 K/mcL (0.0-1.3); Monocytes % 4.9 %; Neutrophils # 5.8 K/mcL (1.6-8.9); Platelet Count 351 K/mcL (140-400); Red Blood Count 4.85 M/mcL (4.19-5.50); Red Cell Distribution Width 13.2 % (11.5-14.5); White Blood Count 10.6 K/mcL (4.3-11.1)
[2020-05-20 05:23] LABS: BUN/Creatinine Ratio 36 (6-26); Blood Urea Nitrogen 35 mg/dL (6-20); Calcium 8.3 mg/dL (8.6-10.3); Carbon Dioxide 25 mEq/L (23-29); Chloride 104 mEq/L (98-107); Chol/HDL Ratio 4.6 (0-4.9); Cholesterol 119 mg/dL (< 200); Glucose 177 mg/dL (70-105); HDL Cholesterol 26 mg/dL (40-59); LDL Cholesterol,Calculated 52 mg/dL (< 100); Magnesium 1.9 mg/dL (1.6-2.6); Osmolality,Calculated 290 (280-300); Phosphorous 3.9 mg/dL (2.7-4.5); Potassium 4.8 mEq/L (3.5-5.1); Sodium 134 mEq/L (136-145); Triglycerides 204 mg/dL (< 150); eGFR For African Americans > 60 (> 60); eGFR For Non-African Americans > 60 (> 60)
[2020-05-20] MEDS: 0.9 % Sodium Chloride 1,000 ML IVC SCH (07:23)
[2020-05-20] MEDS: Insulin LISPRO 300 UNITS/3 ML VIAL SQ SCH ×4 (08:23→19:38)
[2020-05-20] MEDS ORDERED: Furosemide 40 MG/4 ML VIAL IVP ONE (08:34)
[2020-05-20] MEDS ORDERED: carvediloL 6.25 MG TABLET PO SCH (09:00)
[2020-05-20] MEDS: Metoprolol XL (24 HR) Succ 25 MG TAB.ER.24H PO SCH (11:25)
[2020-05-20] MEDS: Aspirin 81 MG TAB.CHEW PO SCH (11:25)
[2020-05-20] MEDS: lisinopriL 5 MG TABLET PO SCH (11:25)
[2020-05-20] MEDS: Gabapentin 300 MG CAPSULE PO SCH ×3 (11:25→19:37)
[2020-05-20] MEDS: *HR* Heparin 5,000 UNIT/ML VIAL SQ SCH (18:16)
[2020-05-20] MEDS: CLEAR EYES NATURAL TEARS 15 ML BOTTLE BOTH EYES SCH ×2 (19:04→19:37)
[2020-05-20] MEDS: Magnesium Oxide 400 MG TABLET PO SCH (19:37)
[2020-05-21] MEDS: Insulin DETEMIR 100 UNIT/ML X5UNITS SQ SCH ×2 (00:12→21:34)
[2020-05-21] MEDS: *HR* Heparin 5,000 UNIT/ML VIAL SQ SCH ×2 (05:28→16:38)
[2020-05-21] MEDS: Insulin LISPRO 300 UNITS/3 ML VIAL SQ SCH ×4 (07:59→21:33)
[2020-05-21] MEDS: Gabapentin 300 MG CAPSULE PO SCH ×3 (08:36→21:32)
[2020-05-21] MEDS: Aspirin 81 MG TAB.CHEW PO SCH (08:36)
[2020-05-21] MEDS: CLEAR EYES NATURAL TEARS 15 ML BOTTLE BOTH EYES SCH ×4 (08:36→21:32)
[2020-05-21] MEDS: Furosemide 40 MG TABLET PO SCH (09:14)
[2020-05-21] MEDS: Metoprolol XL (24 HR) Succ 25 MG TAB.ER.24H PO SCH (10:32)
[2020-05-21] MEDS: lisinopriL 5 MG TABLET PO SCH (10:32)
[2020-05-21] MEDS ORDERED: Furosemide 20 MG/2 ML VIAL IVP ONE (12:38)
[2020-05-21] MEDS: Magnesium Oxide 400 MG TABLET PO SCH (21:33)
[2020-05-22] MEDS: *HR* Heparin 5,000 UNIT/ML VIAL SQ SCH ×2 (05:59→16:45)
[2020-05-22] MEDS: Gabapentin 300 MG CAPSULE PO SCH ×3 (07:48→21:20)
[2020-05-22] MEDS: Aspirin 81 MG TAB.CHEW PO SCH (07:48)
[2020-05-22] MEDS: CLEAR EYES NATURAL TEARS 15 ML BOTTLE BOTH EYES SCH ×4 (07:48→21:20)
[2020-05-22] MEDS: Insulin LISPRO 300 UNITS/3 ML VIAL SQ SCH ×4 (07:48→21:21)
[2020-05-22] MEDS: Furosemide 40 MG TABLET PO SCH (07:48)
[2020-05-22] MEDS: lisinopriL 5 MG TABLET PO SCH (07:54)
[2020-05-22] MEDS: Metoprolol XL (24 HR) Succ 25 MG TAB.ER.24H PO SCH (07:54)
[2020-05-22 08:37] LABS: BUN/Creatinine Ratio 35 (6-26); Blood Urea Nitrogen 25 mg/dL (6-20); Calcium 9.3 mg/dL (8.6-10.3); Carbon Dioxide 29 mEq/L (23-29); Chloride 101 mEq/L (98-107); Glucose 234 mg/dL (70-105); Osmolality,Calculated 288 (280-300); Potassium 4.7 mEq/L (3.5-5.1); Sodium 133 mEq/L (136-145); eGFR For African Americans > 60 (> 60); eGFR For Non-African Americans > 60 (> 60)
[2020-05-22] MEDS ORDERED: Chloraseptic Spray 177 ML BOTTLE MM PRN (20:49)
[2020-05-22] MEDS: Magnesium Oxide 400 MG TABLET PO SCH (21:20)
[2020-05-22] MEDS: Insulin DETEMIR 100 UNIT/ML X5UNITS SQ SCH (21:21)
[2020-05-23 04:06] LABS: Basophils % 0.4 %; Eosinophils # 0.3 K/mcL (0.0-0.6); Eosinophils % 3.1 %; Hematocrit 41.7 % (37.5-50.1); Hemoglobin 13.7 g/dL (12.9-16.9); Immature Granulocytes % 0.4 % (0-4); Lymphocytes # 4.1 K/mcL (0.6-4.6); Mean Corpuscular HGB Conc 32.9 g/dL (31.6-35.5); Mean Corpuscular Hemoglobin 29.1 pg (28.0-33.3); Mean Corpuscular Volume 88.5 fL (83.0-100.0); Mean Platelet Volume 8.9 fL (9.4-12.4); Monocytes # 0.6 K/mcL (0.0-1.3); Platelet Count 333 K/mcL (140-400); Red Blood Count 4.71 M/mcL (4.19-5.50); Red Cell Distribution Width 12.9 % (11.5-14.5); Segmented Neutrophils % 49.1 %; White Blood Count 10.1 K/mcL (4.3-11.1)
[2020-05-23 04:26] LABS: Platelet Estimate Normal (Normal); Reactive Lymphocytes Present (Not Present)
[2020-05-23 04:27] LABS: BUN/Creatinine Ratio 39 (6-26); Blood Urea Nitrogen 32 mg/dL (6-20); Calcium 9.1 mg/dL (8.6-10.3); Carbon Dioxide 31 mEq/L (23-29); Chloride 100 mEq/L (98-107); Glucose 262 mg/dL (70-105); Osmolality,Calculated 300 (280-300); Phosphorous 3.5 mg/dL (2.7-4.5); Potassium 4.6 mEq/L (3.5-5.1); Sodium 137 mEq/L (136-145); eGFR For African Americans > 60 (> 60); eGFR For Non-African Americans > 60 (> 60)
[2020-05-23] MEDS: *HR* Heparin 5,000 UNIT/ML VIAL SQ SCH ×2 (05:02→17:33)
[2020-05-23] MEDS: Metoprolol XL (24 HR) Succ 25 MG TAB.ER.24H PO SCH (08:09)
[2020-05-23] MEDS: CLEAR EYES NATURAL TEARS 15 ML BOTTLE BOTH EYES SCH ×4 (08:09→22:03)
[2020-05-23] MEDS: lisinopriL 5 MG TABLET PO SCH (08:09)
[2020-05-23] MEDS: Insulin LISPRO 300 UNITS/3 ML VIAL SQ SCH ×4 (08:09→22:05)
[2020-05-23] MEDS: Gabapentin 300 MG CAPSULE PO SCH ×3 (08:09→22:03)
[2020-05-23] MEDS: Furosemide 40 MG TABLET PO SCH (08:09)
[2020-05-23] MEDS: Aspirin 81 MG TAB.CHEW PO SCH (08:09)
[2020-05-23] MEDS: Furosemide 40 MG/4 ML VIAL IVP SCH ×2 (10:34→17:32)
[2020-05-23] MEDS ORDERED: Insulin DETEMIR 100 UNIT/ML X5UNITS SQ SCH (21:00)
[2020-05-23] MEDS: Magnesium Oxide 400 MG TABLET PO SCH (22:04)
[2020-05-24 04:27] LABS: Basophils % 0.4 %; Eosinophils # 0.4 K/mcL (0.0-0.6); Eosinophils % 3.1 %; Hematocrit 40.9 % (37.5-50.1); Hemoglobin 13.7 g/dL (12.9-16.9); Immature Granulocytes % 0.4 % (0-4); Lymphocytes # 4.1 K/mcL (0.6-4.6); Lymphocytes % 35.9 %; Mean Corpuscular HGB Conc 33.5 g/dL (31.6-35.5); Mean Corpuscular Hemoglobin 29.6 pg (28.0-33.3); Mean Corpuscular Volume 88.3 fL (83.0-100.0); Monocytes # 0.6 K/mcL (0.0-1.3); Monocytes % 5.6 %; Neutrophils # 6.2 K/mcL (1.6-8.9); Platelet Count 344 K/mcL (140-400); Red Blood Count 4.63 M/mcL (4.19-5.50); Segmented Neutrophils % 54.6 %; White Blood Count 11.4 K/mcL (4.3-11.1)
[2020-05-24 04:41] LABS: BUN/Creatinine Ratio 47 (6-26); Blood Urea Nitrogen 43 mg/dL (6-20); Carbon Dioxide 28 mEq/L (23-29); Chloride 99 mEq/L (98-107); Glucose 256 mg/dL (70-105); Magnesium 1.9 mg/dL (1.6-2.6); Osmolality,Calculated 296 (280-300); Phosphorous 3.9 mg/dL (2.7-4.5); Potassium 4.6 mEq/L (3.5-5.1); Sodium 133 mEq/L (136-145); eGFR For African Americans > 60 (> 60); eGFR For Non-African Americans > 60 (> 60)
[2020-05-24] MEDS: *HR* Heparin 5,000 UNIT/ML VIAL SQ SCH ×2 (06:19→17:57)
[2020-05-24 07:32] VITALS: BP 131/80
[2020-05-24] MEDS: Furosemide 40 MG/4 ML VIAL IVP SCH ×2 (08:48→17:44)
[2020-05-24] MEDS: lisinopriL 5 MG TABLET PO SCH (08:48)
[2020-05-24] MEDS: Aspirin 81 MG TAB.CHEW PO SCH (08:48)
[2020-05-24] MEDS: Metoprolol XL (24 HR) Succ 25 MG TAB.ER.24H PO SCH (08:48)
[2020-05-24] MEDS: Gabapentin 300 MG CAPSULE PO SCH ×2 (08:48→15:17)
[2020-05-24] MEDS: Insulin LISPRO 300 UNITS/3 ML VIAL SQ SCH ×3 (08:49→17:56)
[2020-05-24] MEDS: CLEAR EYES NATURAL TEARS 15 ML BOTTLE BOTH EYES SCH ×3 (08:49→17:43)
== END 2020-05-24 18:55 | disposition home or self-care (01) | DRG 682 ==
LOC: 3BNU 12:14 → EMEROOARM 12:14 → SUATTDRO 14:48 → 3BNU 15:45
PROVIDERS: ADMIT Internal Medicine; ATTEND Internal Medicine

== ENCOUNTER 2020-10-05 16:08 | Observation (INO) ==
[2020-10-05 17:13] LABS: Basophils % 0.4 %; Eosinophils # 0.3 K/mcL (0.0-0.6); Eosinophils % 2.7 %; Hematocrit 43.2 % (37.5-50.1); Hemoglobin 14.6 g/dL (12.9-16.9); Immature Granulocytes % 0.3 % (0-4); Lymphocytes # 3.7 K/mcL (0.6-4.6); Lymphocytes % 32.5 %; Mean Corpuscular HGB Conc 33.8 g/dL (31.6-35.5); Mean Corpuscular Hemoglobin 29.6 pg (28.0-33.3); Mean Corpuscular Volume 87.4 fL (83.0-100.0); Mean Platelet Volume 8.9 fL (9.4-12.4); Monocytes # 0.6 K/mcL (0.0-1.3); Monocytes % 5.3 %; Neutrophils # 6.7 K/mcL (1.6-8.9); Platelet Count 299 K/mcL (140-400); Red Blood Count 4.94 M/mcL (4.19-5.50); Red Cell Distribution Width 12.9 % (11.5-14.5); Segmented Neutrophils % 58.8 %; White Blood Count 11.3 K/mcL (4.3-11.1)
[2020-10-05 17:31] LABS: Alanine Aminotransferase 7 Units/L (7-52); Alkaline Phosphatase 85 Units/L (34-104); Aspartate Amino Transferase 10 Units/L (13-39); BUN/Creatinine Ratio 31 (6-26); Bilirubin,Total 0.3 mg/dL (0.3-1.0); Blood Urea Nitrogen 21 mg/dL (6-20); Calcium 8.3 mg/dL (8.6-10.3); Carbon Dioxide 26 mEq/L (23-29); Chloride 104 mEq/L (98-107); Globulin 2.9 g/dL (2.4-3.5); Glucose 269 mg/dL (70-105); Lipase 15 Units/L (11-82); Osmolality,Calculated 294 (280-300); Potassium 4.4 mEq/L (3.5-5.1); Sodium 136 mEq/L (136-145); Total Protein 5.9 g/dL (6.4-8.9); Troponin I < 0.03 ng/mL (< 0.04); eGFR For African Americans > 60 (> 60); eGFR For Non-African Americans > 60 (> 60)
[2020-10-05 17:40] LABS: Prothrombin Time 11.3 Seconds (9.4-12.1)
[2020-10-05 17:43] LABS: Activated Partial Thrombo Time 25.1 Seconds (26.0-36.0)
[2020-10-05] MEDS ORDERED: Isovue-370 500 ML BOTTLE IVP ONE (17:58)
[2020-10-05] MEDS ORDERED: Ondansetron 4 MG/2 ML VIAL IVP PRN (21:54)
[2020-10-05] MEDS ORDERED: Naloxone 0.4 MG/ML INJ IVP PRN (21:54)
[2020-10-05] MEDS ORDERED: Dextrose Gel 15 GM/37.5 ML TUBE PO PRN ×2 (21:59)
[2020-10-05] MEDS ORDERED: D5% in Water 1,000 ML IVC PRN (21:59)
[2020-10-05] MEDS ORDERED: *HR* Dextrose 50 % in Water (Vial) 50 ML VIAL IVP PRN (21:59)
[2020-10-05] MEDS: Ringers Solution, Lactated 1,000 ML IVC SCH (22:22)
[2020-10-05] MEDS: Insulin LISPRO 300 UNITS/3 ML VIAL SUBQ SCH (23:10)
[2020-10-06 02:18] LABS: Hematocrit 41.4 % (37.5-50.1); Mean Corpuscular HGB Conc 33.8 g/dL (31.6-35.5); Mean Corpuscular Volume 88.8 fL (83.0-100.0); Platelet Count 303 K/mcL (140-400); Red Blood Count 4.66 M/mcL (4.19-5.50); Red Cell Distribution Width 13.1 % (11.5-14.5)
[2020-10-06 02:37] LABS: BUN/Creatinine Ratio 33 (6-26); Blood Urea Nitrogen 22 mg/dL (6-20); Calcium 8.5 mg/dL (8.6-10.3); Carbon Dioxide 30 mEq/L (23-29); Chloride 103 mEq/L (98-107); Glucose 177 mg/dL (70-105); Osmolality,Calculated 292 (280-300); Potassium 4.3 mEq/L (3.5-5.1); Sodium 137 mEq/L (136-145); eGFR For African Americans > 60 (> 60); eGFR For Non-African Americans > 60 (> 60)
[2020-10-06] MEDS: Insulin LISPRO 300 UNITS/3 ML VIAL SUBQ SCH ×2 (05:20→11:49)
[2020-10-06] MEDS ORDERED: Pantoprazole 40 MG VIAL IVP SCH (06:00)
[2020-10-06 10:29] LABS: Adenovirus Not Detected (Not Detect); Bordetella Pertussis Not Detected (Not Detect); Chlamydophila pneumoniae Not Detected (Not Detect); Coronavirus 229E Not Detected (Not Detect); Coronavirus HKU1 Not Detected (Not Detect); Coronavirus NL63 Not Detected (Not Detect); Coronavirus OC43 Not Detected (Not Detect); Human Metapneumovirus Not Detected (Not Detect); Human Rhinovirus/Enterovirus Not Detected (Not Detect); Influenza A Subtype 2009 H1 Not Detected (Not Detect); Influenza B Not Detected (Not Detect); Mycoplasma pneumoniae Not Detected (Not Detect); Parainfluenza Virus 1 Not Detected (Not Detect); Parainfluenza Virus 2 Not Detected (Not Detect); Parainfluenza Virus 3 Not Detected (Not Detect); Parainfluenza Virus 4 Not Detected (Not Detect); Respiratory Syncytial Virus Not Detected (Not Detect); SARS-CoV-2 Not Detected (Not Detect)
[2020-10-06] MEDS: Ringers Solution, Lactated 1,000 ML IVC SCH (11:15)
[2020-10-06] MEDS ORDERED: *HR* Propofol 200 MG/20 ML VIAL IVP ONE (11:51)
[2020-10-06] MEDS ORDERED: Lidocaine -MPF 2% 2 ML VIAL ONE (12:11)
[2020-10-06 12:40] VITALS: BP 135/77
[2020-10-10] MEDS ORDERED: BUPRENORPHINE 10 MCG/HR PATCH TP SCH (09:00)
== END 2020-10-06 16:36 | disposition home or self-care (01) ==
LOC: EMEROOARM 16:08 → 3ANU 16:08 → SUATTDRO 19:43 → 3ANU 20:34
PROVIDERS: ADMIT Internal Medicine; ATTEND Family Medicine

== ENCOUNTER 2021-05-13 18:46 | Observation (INO) ==
[2021-05-13] MEDS ORDERED: Acetaminophen 325 MG TABLET PO PRN (20:29)
[2021-05-13] MEDS ORDERED: Naloxone 0.4 MG/ML INJ IVP PRN (20:29)
[2021-05-13] MEDS ORDERED: *HR* HYDROcodone/Acet 5/325 mg TABLET PO PRN (20:29)
[2021-05-13] MEDS ORDERED: Melatonin 3 MG TABLET PO PRN (20:29)
[2021-05-13] MEDS ORDERED: Ondansetron 4 MG/2 ML VIAL IVP PRN (20:29)
[2021-05-13] MEDS ORDERED: Dextrose Gel 15 GM/37.5 ML TUBE PO PRN ×2 (21:50)
[2021-05-13] MEDS ORDERED: D5% in Water 1,000 ML IVC PRN (21:50)
[2021-05-13] MEDS ORDERED: *HR* Dextrose 50 % in Water (Vial) 50 ML VIAL IVP PRN (21:50)
[2021-05-14] MEDS ORDERED: Vancomycin 1,250 MG/262.5 ML IV.SOLN IVPB ONE
[2021-05-14] MEDS: Piperacillin/Tazobactam 3.375 GM in 0.9 % Sodium Chloride Mini Bag 100 ML IVPB SCH ×3 (01:24→16:33)
[2021-05-14 02:33] LABS: Basophils % 0.3 %; Eosinophils # 0.4 K/mcL (0.0-0.6); Eosinophils % 2.7 %; Hematocrit 35.8 % (37.5-50.1); Immature Granulocytes % 0.4 % (0-4); Lymphocytes # 2.8 K/mcL (0.6-4.6); Lymphocytes % 17.9 %; Mean Corpuscular HGB Conc 33.5 g/dL (31.6-35.5); Mean Corpuscular Hemoglobin 27.8 pg (28.0-33.3); Mean Corpuscular Volume 82.9 fL (83.0-100.0); Mean Platelet Volume 9.3 fL (9.4-12.4); Monocytes % 6.6 %; Neutrophils # 11.1 K/mcL (1.6-8.9); Platelet Count 363 K/mcL (140-400); Red Blood Count 4.32 M/mcL (4.19-5.50); Red Cell Distribution Width 15.9 % (11.5-14.5); Segmented Neutrophils % 72.1 %; White Blood Count 15.4 K/mcL (4.3-11.1)
[2021-05-14 02:40] LABS: Prothrombin Time 12.1 Seconds (9.4-12.1)
[2021-05-14 02:53] LABS: BUN/Creatinine Ratio 18 (6-26); Blood Urea Nitrogen 19 mg/dL (6-20); Calcium 8.2 mg/dL (8.6-10.3); Carbon Dioxide 24 mEq/L (23-29); Chloride 103 mEq/L (98-107); Chol/HDL Ratio 4.4 (0-4.9); Cholesterol 158 mg/dL (< 200); Glucose 376 mg/dL (70-105); HDL Cholesterol 36 mg/dL (40-59); LDL Cholesterol,Calculated 82 mg/dL (< 100); Magnesium 1.8 mg/dL (1.6-2.6); Osmolality,Calculated 292 (280-300); Potassium 4.7 mEq/L (3.5-5.1); Sodium 132 mEq/L (136-145); Triglycerides 200 mg/dL (< 150); eGFR For African Americans > 60 (> 60); eGFR For Non-African Americans > 60 (> 60)
[2021-05-14] MEDS: *HR* OxyCODONE Immed Rel 5 MG TABLET PO PRN ×3 (06:11→21:01)
[2021-05-14] MEDS: Insulin LISPRO 300 UNITS/3 ML VIAL SUBQ SCH ×4 (08:27→21:01)
[2021-05-14] MEDS ORDERED: Ipratropium/Albuterol Neb 3 ML IH PRN (14:22)
[2021-05-14] MEDS: Vancomycin 1,250 MG/262.5 ML IV.SOLN IVPB SCH (14:57)
[2021-05-14] MEDS ORDERED: BUPRENORPHINE TP SCH (15:25)
[2021-05-14] MEDS: Gabapentin 300 MG CAPSULE PO SCH ×2 (16:33→21:01)
[2021-05-14] MEDS: *HR* Heparin 5,000 UNIT/ML VIAL SQ SCH (17:47)
[2021-05-14] MEDS ORDERED: Insulin DETEMIR 100 UNIT/ML X5UNITS SUBQ SCH (21:00)
[2021-05-15] MEDS: Piperacillin/Tazobactam 3.375 GM in 0.9 % Sodium Chloride Mini Bag 100 ML IVPB SCH ×3 (00:07→15:21)
[2021-05-15 01:04] LABS: Basophils # 0.1 K/mcL (0.0-0.2); Basophils % 0.5 %; Eosinophils # 0.6 K/mcL (0.0-0.6); Eosinophils % 4.5 %; Hematocrit 37.8 % (37.5-50.1); Hemoglobin 12.4 g/dL (12.9-16.9); Immature Granulocytes % 0.3 % (0-4); Lymphocytes # 3.1 K/mcL (0.6-4.6); Lymphocytes % 25.6 %; Mean Corpuscular HGB Conc 32.8 g/dL (31.6-35.5); Mean Corpuscular Hemoglobin 27.3 pg (28.0-33.3); Mean Corpuscular Volume 83.1 fL (83.0-100.0); Mean Platelet Volume 8.9 fL (9.4-12.4); Monocytes # 0.8 K/mcL (0.0-1.3); Monocytes % 6.1 %; Neutrophils # 7.7 K/mcL (1.6-8.9); Platelet Count 394 K/mcL (140-400); Red Blood Count 4.55 M/mcL (4.19-5.50); Red Cell Distribution Width 15.9 % (11.5-14.5); White Blood Count 12.3 K/mcL (4.3-11.1)
[2021-05-15 01:22] LABS: BUN/Creatinine Ratio 21 (6-26); Blood Urea Nitrogen 23 mg/dL (6-20); Calcium 8.2 mg/dL (8.6-10.3); Carbon Dioxide 22 mEq/L (23-29); Chloride 103 mEq/L (98-107); Glucose 239 mg/dL (70-105); Magnesium 1.7 mg/dL (1.6-2.6); Osmolality,Calculated 285 (280-300); Phosphorous 4.1 mg/dL (2.7-4.5); Potassium 4.5 mEq/L (3.5-5.1); Sodium 132 mEq/L (136-145); eGFR For African Americans > 60 (> 60); eGFR For Non-African Americans > 60 (> 60)
[2021-05-15] MEDS: Vancomycin 1,250 MG/262.5 ML IV.SOLN IVPB SCH ×2 (02:37→15:09)
[2021-05-15] MEDS: Aspirin 81 MG TAB.CHEW PO SCH (07:41)
[2021-05-15] MEDS: Gabapentin 300 MG CAPSULE PO SCH ×3 (07:41→20:31)
[2021-05-15] MEDS: Cyanocobalamin (B-12) 1,000 MCG TABLET PO SCH (07:41)
[2021-05-15] MEDS: lisinopriL 5 MG TABLET PO SCH (07:41)
[2021-05-15] MEDS: Ascorbic Acid 500 MG TABLET PO SCH (07:42)
[2021-05-15] MEDS: *HR* Heparin 5,000 UNIT/ML VIAL SQ SCH ×2 (07:42→18:19)
[2021-05-15] MEDS: Insulin LISPRO 300 UNITS/3 ML VIAL SUBQ SCH ×4 (07:43→20:31)
[2021-05-15] MEDS ORDERED: Isovue-370 500 ML BOTTLE IVP ONE (11:32)
[2021-05-15] MEDS: *HR* OxyCODONE Immed Rel 5 MG TABLET PO PRN (20:31)
[2021-05-15] MEDS ORDERED: Insulin DETEMIR 100 UNIT/ML X5UNITS SUBQ SCH (21:00)
[2021-05-16] MEDS: Piperacillin/Tazobactam 3.375 GM in 0.9 % Sodium Chloride Mini Bag 100 ML IVPB SCH ×2 (00:30→07:44)
[2021-05-16 03:23] LABS: Basophils % 0.4 %; Eosinophils # 0.6 K/mcL (0.0-0.6); Hematocrit 34.5 % (37.5-50.1); Hemoglobin 11.3 g/dL (12.9-16.9); Immature Granulocytes % 0.4 % (0-4); Lymphocytes # 2.8 K/mcL (0.6-4.6); Lymphocytes % 25.4 %; Mean Corpuscular HGB Conc 32.8 g/dL (31.6-35.5); Mean Corpuscular Hemoglobin 27.3 pg (28.0-33.3); Mean Corpuscular Volume 83.3 fL (83.0-100.0); Mean Platelet Volume 8.9 fL (9.4-12.4); Monocytes # 0.7 K/mcL (0.0-1.3); Monocytes % 5.9 %; Platelet Count 388 K/mcL (140-400); Red Blood Count 4.14 M/mcL (4.19-5.50); Red Cell Distribution Width 15.9 % (11.5-14.5); Segmented Neutrophils % 62.9 %; White Blood Count 11.2 K/mcL (4.3-11.1)
[2021-05-16 03:42] LABS: BUN/Creatinine Ratio 24 (6-26); Blood Urea Nitrogen 33 mg/dL (6-20); Carbon Dioxide 25 mEq/L (23-29); Chloride 103 mEq/L (98-107); Glucose 324 mg/dL (70-105); Magnesium 1.7 mg/dL (1.6-2.6); Osmolality,Calculated 296 (280-300); Phosphorous 4.2 mg/dL (2.7-4.5); Potassium 4.8 mEq/L (3.5-5.1); Sodium 133 mEq/L (136-145); eGFR For African Americans > 60 (> 60); eGFR For Non-African Americans 53 (> 60)
[2021-05-16] MEDS: *HR* Heparin 5,000 UNIT/ML VIAL SQ SCH (06:14)
[2021-05-16 06:36] VITALS: BP 173/94; PULSE 89; TEMP 97.8; O2SAT 95
[2021-05-16] MEDS: Aspirin 81 MG TAB.CHEW PO SCH (07:43)
[2021-05-16] MEDS: Ascorbic Acid 500 MG TABLET PO SCH (07:43)
[2021-05-16] MEDS: Cyanocobalamin (B-12) 1,000 MCG TABLET PO SCH (07:44)
[2021-05-16] MEDS: lisinopriL 5 MG TABLET PO SCH (07:44)
[2021-05-16] MEDS: Insulin LISPRO 300 UNITS/3 ML VIAL SUBQ SCH (07:44)
[2021-05-16] MEDS: Gabapentin 300 MG CAPSULE PO SCH (07:44)
[2021-05-16 08:29] LABS: Estimated Average Glucose 392 mg/dl; Hemoglobin A1C 15.3 %
[2021-05-16] MEDS ORDERED: Insulin DETEMIR 100 UNIT/ML X5UNITS SUBQ SCH (09:00)
[2021-05-16] MEDS ORDERED: Doxycycline 100 MG CAPSULE PO SCH (09:00)
[2021-05-16] MEDS ORDERED: Insulin LISPRO 300 UNITS/3 ML VIAL SUBQ SCH (12:00)
== END 2021-05-16 13:22 | disposition home or self-care (01) ==
LOC: 3BNU → SUATTDRO 19:31
PROVIDERS: ADMIT Family Medicine; ATTEND Internal Medicine